=== PATIENT | male | born 1960 | race Caucasian/White ===

== ENCOUNTER → 2018-08-06 14:03 | Outpatient (CLI) | payer OTHER, MEDICAID, SELFPAY ==
--- NOTE | 2018-08-06 | DI.RAD.S_ITS ---
PROCEDURE: XR HIP W PEL IF DONE RT 2V INDICATIONS: RIGHT HIP PAIN TECHNIQUE: AP pelvis with lateral view(s) of the right hip(s). COMPARISON: None. FINDINGS: Bones: No fractures or dislocations. Pelvic ring appears intact. No suspicious bony lesions. Bilateral moderate hip joint degeneration, right slightly greater than left. Lower lumbar facet disease and discogenic changes. A presumed 3 mm bone island projecting in the left femoral head Soft tissues: The visualized bowel gas pattern is normal. No suspicious soft tissue calcifications. IMPRESSION: Bilateral moderate hip joint degeneration, right slightly greater than left. Dictated by: Sae Leach M.D. on 08/06/2018 at 15:22 Approved by: Sae Leach M.D. on 08/06/2018 at 15:24
--- NOTE | 2018-08-06 | DI.RAD.S_ITS ---
PROCEDURE: XR CHEST 2V INDICATIONS: COUGH TECHNIQUE: 2 views of the chest were acquired. COMPARISON: None. FINDINGS: Surgical changes and devices: Partially visualized cervical spine fixation hardware. Lungs and pleura: No pleural effusions or pneumothorax. Lungs are clear. Mediastinum: Mediastinal contours are normal. Heart size is normal. Bones and chest wall: No suspicious bony abnormalities. Chronic left clavicle fracture. Soft tissues appear unremarkable. IMPRESSION: No acute disease. Dictated by: Sae Leach M.D. on 08/06/2018 at 15:24 Approved by: Sae Leach M.D. on 08/06/2018 at 15:25
== END ==
PROVIDERS: PCP Family Medicine; Visit Provider Family Medicine
DX: M16.0 Bilateral primary osteoarthritis of hip (principal); R05 Cough; M25.551 Pain in right hip
CPT/HCPCS: 71046; 73502

== ENCOUNTER → 2018-12-04 09:46 | Outpatient (CLI) | payer OTHER, MEDICAID, SELFPAY ==
--- NOTE | 2018-12-04 | DI.RAD.S_ITS ---
PROCEDURE: XR FEMUR RT MIN 2V INDICATIONS: RIGHT MID THIGH PAIN TECHNIQUE: 2 views of the femur were acquired. COMPARISON: [facility], CR, XR HIP W PEL IF DONE RT 2V, 08/06/2018, 14:15. FINDINGS: Bones: No fractures or dislocations. No suspicious bony lesions. There is moderate superior joint space narrowing seen of the right hip, with associated remodeling changes with subchondral sclerosis and osteophyte formation. Soft tissues: No suspicious soft tissue calcifications or masses. IMPRESSION: Moderate right hip degenerative change. No focal femur abnormalities seen. Dictated by: Deangelo Agosto M.D. on 12/04/2018 at 9:29 Approved by: Deangelo Agosto M.D. on 12/04/2018 at 9:32
== END ==
PROVIDERS: Family Provider Family Medicine; PCP Family Medicine; Visit Provider Family Medicine
DX: M79.651 Pain in right thigh (principal); M16.11 Unilateral primary osteoarthritis, right hip
CPT/HCPCS: 73552

== ENCOUNTER → 2019-01-18 10:10 | Outpatient (CLI) | payer OTHER, MEDICAID, SELFPAY ==
--- NOTE | 2019-01-18 | DI.RAD.S_ITS ---
PROCEDURE: XR ANKLE LT MIN 3V INDICATIONS: LEFT ANKLE PAIN TECHNIQUE: 3 views of the ankle were acquired. COMPARISON: None. FINDINGS: Bones: No fractures or dislocations. Ankle mortise is normally aligned. No suspicious bony lesions. Mild talonavicular joint degeneration. Soft tissues: No tibiotalar joint effusion. Achilles tendon appears normal. IMPRESSION: No fracture or dislocation. Mild talonavicular joint degeneration. Dictated by: Shad Barbosa M.D. on 01/18/2019 at 12:24 Approved by: Shad Barbosa M.D. on 01/18/2019 at 12:28
== END ==
PROVIDERS: Family Provider Family Medicine; PCP Family Medicine; Visit Provider Family Medicine
DX: M25.572 Pain in left ankle and joints of left foot (principal); M19.072 Primary osteoarthritis, left ankle and foot
CPT/HCPCS: 73610

== ENCOUNTER → 2019-07-30 09:25 | Outpatient (CLI) | payer OTHER, MEDICAID, SELFPAY ==
--- NOTE | 2019-07-30 09:31 | DI.RAD.S_ITS ---
PROCEDURE: XR CERVICAL SPINE 4V OR 5V INDICATIONS: Neck pain status post ACDF TECHNIQUE: 5 views of the cervical spine acquired. COMPARISON: None. FINDINGS: Bones: No fractures or dislocations to the C7 level. Chronic left clavicle fracture Straightening of the normal lordotic curvature. C4-C7 ACDF. Hardware appears intact, and there is expected postoperative alignment. Multilevel degenerative endplate sclerosis and spurring. Diffuse facet arthropathy. Minimal narrowing of the remaining cervical disc spaces. On the left, there is diffuse mild bony foraminal stenoses at all levels. On the right, moderate bony narrowing of the C4-C5 foramen and diffuse mild bony foraminal stenosis at the remaining levels Soft tissues: No prevertebral soft tissue swelling. IMPRESSION: Postsurgical and degenerative changes as above. Straightening of the normal lordotic curvature. Dictated by: Sae Leach M.D. on 07/30/2019 at 9:51 Approved by: Sae Leach M.D. on 07/30/2019 at 9:55
== END ==
PROVIDERS: PCP Student in an Organized Health Care Education/Training Program; Visit Provider Physical Medicine & Rehabilitation
DX: M54.2 Cervicalgia (principal); M47.812 Spondylosis without myelopathy or radiculopathy, cervical region; M48.02 Spinal stenosis, cervical region; Z98.1 Arthrodesis status
CPT/HCPCS: 72050

== ENCOUNTER → 2019-09-20 10:13 | Outpatient (CLI) | payer OTHER, MEDICAID, SELFPAY ==
--- NOTE | 2019-09-20 | DI.RAD.S_ITS ---
PROCEDURE: XR HAND RT MIN 3V INDICATIONS: RIGHT HAND PAIN TECHNIQUE: 3 views of the hand(s) acquired. COMPARISON: None. FINDINGS: Bones: No fractures or dislocations. Carpal bones are normally aligned. No suspicious bony lesions. Soft tissues: No suspicious soft tissue calcifications. IMPRESSION: Mild distal phalangeal degenerative osteoarthritic joint space narrowing, no trauma or erosive arthritis. Dictated by: Luis Rogers M.D. on 09/20/2019 at 10:43 Approved by: Luis Rogers M.D. on 09/20/2019 at 10:56
== END ==
PROVIDERS: PCP Student in an Organized Health Care Education/Training Program; Visit Provider Student in an Organized Health Care Education/Training Program
DX: M79.641 Pain in right hand (principal); M19.041 Primary osteoarthritis, right hand
CPT/HCPCS: 73130

== ENCOUNTER → 2019-11-03 13:12 | Outpatient (ROUT) | payer OTHER, MEDICAID, SELFPAY ==
[2019-11-03 13:52] LABS: Influenza A - CEPHEID Flu A NEGATIVE (NEGATIVE); Influenza B - CEPHEID Flu B NEGATIVE (NEGATIVE)
== END ==
PROVIDERS: PCP Student in an Organized Health Care Education/Training Program; Visit Provider Student in an Organized Health Care Education/Training Program
DX: R05 Cough (principal); R50.9 Fever, unspecified
CPT/HCPCS: 87502

== ENCOUNTER → 2020-03-21 09:33 | Outpatient (CLI) | payer OTHER, MEDICAID, SELFPAY ==
--- NOTE | 2020-03-21 | DI.US.S_ITS ---
PROCEDURE: US PERIPH VENOUS LOW EXTREM RT INDICATIONS: PAIN TECHNIQUE: Real-time imaging, as well as color and pulse Doppler interrogation, were performed of the lower extremity deep veins from the inguinal ligament to the popliteal fossa. COMPARISON: None. FINDINGS: The common femoral, femoral and popliteal veins are normally compressible, and free of intraluminal thrombus. Color and pulse Doppler demonstrate normal phasic intraluminal flow. There is normal augmentation response to distal compression maneuver. IMPRESSION: No evidence of deep venous thrombosis. Dictated by: Sae Leach M.D. on 03/21/2020 at 10:40 Approved by: Sae Leach M.D. on 03/21/2020 at 10:41
== END ==
PROVIDERS: PCP Student in an Organized Health Care Education/Training Program; Referring Provider Student in an Organized Health Care Education/Training Program; Visit Provider Student in an Organized Health Care Education/Training Program
DX: M79.604 Pain in right leg (principal)
CPT/HCPCS: 93971

== ENCOUNTER → 2020-04-05 11:27 | Outpatient (CLI) | payer OTHER, MEDICAID, SELFPAY ==
--- NOTE | 2020-04-05 | DI.RAD.S_ITS ---
PROCEDURE: XR HIP W PEL IF DONE RT 2V INDICATIONS: Right hip pain TECHNIQUE: AP pelvis with lateral view(s) of the right hip(s). COMPARISON: [facility], , XR HIP W PEL IF DONE RT 2V, 08/06/2018, 14:15. FINDINGS: Bones: No fractures or dislocations but again noted is moderately severe right hip joint osteoarthritis when compared to the left hip where only a relatively mild degree of degeneration can be seen. The right hip osteoarthritis appears to have progressed from July 2018.. Pelvic ring appears intact. No suspicious bony lesions. Soft tissues: The visualized bowel gas pattern is normal. No suspicious soft tissue calcifications. IMPRESSION: No acute trauma found. Worsening now moderately severe right hip joint osteoarthritis with near kyan-oy-cyet articulation at the upper-outer acetabular border. Dictated by: Luis Rogers M.D. on 04/05/2020 at 12:10 Approved by: Luis Rogers M.D. on 04/05/2020 at 12:11
== END ==
PROVIDERS: PCP Student in an Organized Health Care Education/Training Program; Referring Provider Student in an Organized Health Care Education/Training Program; Visit Provider Student in an Organized Health Care Education/Training Program
DX: M25.551 Pain in right hip (principal); M16.0 Bilateral primary osteoarthritis of hip
CPT/HCPCS: 73502

== ENCOUNTER → 2020-05-01 09:38 | Outpatient (CLI) | payer OTHER, MEDICAID, SELFPAY ==
--- NOTE | 2020-05-01 | DI.US.S_ITS ---
PROCEDURE: US SOFT TISSUE HEAD AND NECK INDICATIONS: LYMPHADENOPATHY TECHNIQUE: Real-time scanning was performed of the neck region of interest, with image documentation. COMPARISON: None. FINDINGS: Scanning over the right neck area of reported swelling and redness for 2 months was performed, without identifiable underlying adenopathy or abnormal fluid collection or solid mass. IMPRESSION: No abnormality found by ultrasound. Contrast-enhanced CT or MR scanning likely is warranted, depending on clinical status, it is unusual symptoms persist. Dictated by: Luis Rogers M.D. on 05/01/2020 at 10:48 Approved by: Luis Rogers M.D. on 05/01/2020 at 10:49
== END ==
PROVIDERS: PCP Student in an Organized Health Care Education/Training Program; Referring Provider Student in an Organized Health Care Education/Training Program; Visit Provider Student in an Organized Health Care Education/Training Program
DX: R59.1 Generalized enlarged lymph nodes (principal)
CPT/HCPCS: 76536

== ENCOUNTER → 2020-05-15 08:20 | Outpatient (CLI) | payer OTHER, MEDICAID, SELFPAY ==
[2020-05-15 09:08] LABS: BUN Creatinine Ratio 12.9 (6-22); Blood Urea Nitrogen 9 mg/dL (9-20); Estimated Glomerular Filt Rate > 60.0 mL/min (>60)
--- NOTE | 2020-05-15 09:42 | DI.CT.S_ITS ---
PROCEDURE: CT ABDOMEN PELVIS W CON INDICATIONS: Right lower quadrant pain TECHNIQUE: After the administration of oral and intravenous contrast, 5 mm thick sections acquired from the diaphragms to the symphysis. 5 mm thick coronal and sagittal reformats were performed. For radiation dose reduction, the following was used: automated exposure control, adjustment of mA and/or kV according to patient size. COMPARISON: [facility], CT, ABDOMEN/PELVIS WITH CONTRAST, 05/17/2016, 10:45. FINDINGS: Image quality: Excellent. ABDOMEN: Lung bases: Minimal bibasilar atelectasis. No pleural effusion. Heart size is normal. Solid organs: Liver is normal in size. Diffuse low-density of the liver suggesting hepatic steatosis. Gallbladder is nondistended. Question of small calcified gallstone. Biliary system is non-dilated. Pancreas enhances normally. The cystic lesion in the head of the pancreas measuring 1.6 x 0.9 cm, (2/35), remotely 1.2 x 0.9 cm on 05/17/2016. No main duct pancreatic ductal dilatation. Spleen is normal in size and enhancement. No adrenal nodules. Kidneys are normal in size and enhancement, without hydronephrosis. Peritoneum and bowel: Stomach, small bowel, and colon loops are normal in caliber and wall thickness. Normal appendix. No free fluid or air. Nodes and vessels: No retroperitoneal or mesenteric adenopathy. Aorta and inferior vena cava are normal in caliber. Duplicated left renal artery. Miscellaneous: No ventral hernias. PELVIS: Genitourinary: Bladder wall thickness is normal. Miscellaneous: Small fat containing right inguinal hernia. No adenopathy. Bones: No suspicious bony lesions. No vertebral body compression fractures. IMPRESSION: 1. No acute inflammatory process identified. No free fluid. Normal appendix. 2. Small fat containing right inguinal hernia. -Consider dedicated ultrasound with Valsalva for further evaluation. 3. Cystic lesion in the head of the pancreas measuring 1.6 cm, slightly increased compared to 2016. This may represent IPMN. -Recommend follow-up multiphase CT pancreas or pancreas MRI in 1 year. 4. Diverticulosis. Dictated by: Oliverio Chaves M.D. on 05/15/2020 at 10:31 Approved by: Oliverio Chaves M.D. on 05/15/2020 at 10:44
== END ==
PROVIDERS: PCP Student in an Organized Health Care Education/Training Program; Referring Provider Student in an Organized Health Care Education/Training Program; Visit Provider Student in an Organized Health Care Education/Training Program
DX: R10.31 Right lower quadrant pain (principal); K86.2 Cyst of pancreas; K40.90 Unilateral inguinal hernia, without obstruction or gangrene, not specified as recurrent; R19.7 Diarrhea, unspecified; R19.5 Other fecal abnormalities; K57.90 Diverticulosis of intestine, part unspecified, without perforation or abscess without bleeding
CPT/HCPCS: 36415; 74177; 82565; 84520; Q9967

== ENCOUNTER → 2020-05-19 08:34 | Outpatient (CLI) | payer OTHER, MEDICAID, SELFPAY ==
--- NOTE | 2020-05-19 | DI.US.S_ITS ---
PROCEDURE: US ABDOMEN LIMITED INDICATIONS: UNILATRAL INGUINAL HERNIA TECHNIQUE: Real-time focused scanning was performed of the inguinal region, with image documentation. COMPARISON: [facility], CT, CT ABDOMEN PELVIS W CON, 05/15/2020, 9:40. FINDINGS: There is a fat containing mobile inguinal hernia at the right groin, which accentuates with Valsalva maneuver. No edema or bowel involvement is seen. IMPRESSION: Right groin region fat containing inguinal canal hernia, containing omentum, but without bowel involvement. Dictated by: Luis Rogers M.D. on 05/19/2020 at 10:58 Approved by: Luis Rogers M.D. on 05/19/2020 at 11:09
== END ==
PROVIDERS: PCP Student in an Organized Health Care Education/Training Program; Referring Provider Student in an Organized Health Care Education/Training Program; Visit Provider Student in an Organized Health Care Education/Training Program
DX: K40.90 Unilateral inguinal hernia, without obstruction or gangrene, not specified as recurrent (principal)
CPT/HCPCS: 76705

== ENCOUNTER → 2020-06-04 15:25 | Outpatient (CLI) | payer OTHER, MEDICAID, SELFPAY ==
[2020-06-05 23:10] LABS: COVID19 Sendout Not Detected (Not Detect)
== END ==
PROVIDERS: PCP Student in an Organized Health Care Education/Training Program; Visit Provider Physician Assistant
DX: Z11.59 Encounter for screening for other viral diseases (principal)
CPT/HCPCS: 87635

== ENCOUNTER 2020-06-07 06:27 | Day surgery (SDC) | payer OTHER, MEDICAID, SELFPAY ==
[2020-06-02 10:07] VITALS: BMI 25.7
[2020-06-07] VITALS (7 sets, daily range): BP systolic 115–136; BP diastolic 51–81; PULSE 68–77; RESP 8–95; TEMP 36.1–36.7; O2SAT 16–97; BMI 25.0
--- NOTE | 2020-06-07 | PATH_ITS ---
[facility] Accession Number: [id number] . 01 Material submitted: . PART A: body - ILEO-INGUINAL NERVE PART B: spermatic cord - RIGHT SPERMATIC CORD LIPOMA . 01 Clinical history: . REPAIR RIH W/MESH . 02 Diagnosis: A. Ileoinguinal Nerve, Right Inguinal Hernia Repair: Peripheral nerve tissue present. . B. Right Spermatic Cord Lipoma, Right Inguinal Hernia Repair: Benign fibroadipose and fibroconnective tissue, consistent with cord lipoma (6.3 x 2.2 x 0.9 cm). MRV 06/09/2020 1021 Local . 02 Electronically signed: . Mary Ann Walsh MD, Pathologist NPI- [id number] . 01 Gross description: . A. Received in formalin, labeled ileoinguinal nerve, is one piece of a cylindrical portion of maldonado tissue measuring 8.9 x 0.5 x 0.3 cm. The tissue is inked and entirely submitted, to be further sectioned at embedding. Two additional cassettes will be provided for embedders. B. Received in formalin, labeled right spermatic cord lipoma, is one piece maldonado adipose tissue measuring 6.3 x 2.2 x 0.9 cm. The tissue is inked, serially sectioned, and submitted in six loss prevention representative sections in cassettes B1 and B2, with three slices per cassette. ([id number]) /FRRich 06/08/2020 0334 Local . 02 Pathologist provided ICD-10: K40.90 . 02 CPT . 533533, [id number] Performed at: [address], [place], [place] [id number] MD Donato Mascorro MD Phone: [phone] Performed at: 02 [facility] [place] [address] [place] [id number] MD Dorothy Peterson MD Phone: [phone]
[2020-06-07] MEDS: LACTATED RINGERS 1,000 ML 100 ML IV ×2 (07:21→08:57)
--- NOTE | 2020-06-07 07:40 | PM.PREOP ---
Pre-operative Note COVID-19 COVID-19 status: Negative Result date/Date tested (Pos, Neg/Pending): 06/04/20 Interval Note History & Physical reviewed/Exam performed by Physician: Yes Changes to H&P: Yes H&P completed within 30 days and has changed as indicated here:: Pt saw Dr. Flynn about his hip and recommendation was to go ahead with inguinal hernia repair and follow with hip injections.
[2020-06-07] MEDS: CEFAZOLIN 2 GM/100 ML FROZ.PIGGY IV (07:58)
--- NOTE | 2020-06-07 08:10 | SUR.OPER ---
Supine on padded OR bed, head on pillow, arms secured on padded arm boards at <90 degrees abduction, legs uncrossed, safety belt at thigh, tape over blanket over lower legs.
[2020-06-07] MEDS: BUPIVACAINE 0.25% W/ EPI 30 ML VIAL INJ ×3 (08:16→08:56)
[2020-06-07] MEDS: BUPIVACAINE LIPOSOME 266 MG/20 ML VIAL INJ (08:33)
--- NOTE | 2020-06-07 09:13 | PM.OP.1 ---
Operative Date/Time/Diagnoses Date of procedure: 06/07/20 Time of procedure: 09:13 Pre-op diagnosis: right inguinal hernia Post-op diagnosis: other (indirect and direct right inguinal hernia with spermatic cord lipoma, and chronically scarred and tethered ilioinguinal nerve) Procedure & Clinicians Procedure: Open repair of right inguinal hernia; resection of right spermatic cord lipoma and right ilioinguinal nerve Same procedure as scheduled: Yes Indications: 59 yo man with right inguinal hernia and right groin and perineal pain Surgeon: Faith Velez Click Yes if Unassisted: Yes Anesthesia Type: General Operative Notes Findings: Right indirect hernia and direct hernia with spermatic cord lipoma and scarred and tethered ilioinguinal nerve Specimen(s): other (ilioinguinal nerve, and spermatic cord lipoma) Prosthetic devices, grafts, tissues, transplants, or devices: BARD macroporous flat inguinal mesh Estimated Blood Loss (mL): 1 Procedure in detail: The patient was brought into the OR, placed supine on the OR table, and appropriate preoperative antibiotics were given. Sequential compression devices were placed on both legs and turned on. General anesthesia was induced and the patient was intubated with an LMA by the anesthesiologist. The right lower abdomen and groin were prepped and draped in sterile fashion for inguinal incision. A surgical time out was conducted. Local anesthetic was infiltrated into the skin and a 15 blade was used to make an oblique 10cm incision two finger breadths superior to the inguinal ligament. Dissection was carried down to through the subcutaneous fat and carlos's fascia. Dissection was carried down to the aponeurosis of the external oblique. Using a fresh 15 blade, I opened the aponeurosis after giving generous local anesthetic. There was a moderate indirect inguinal hernia, a very scarred and attenuated ilioinguinal nerve, and a weak inguinal canal floor with bulging direct hernia. I divided the damaged nerve as far proximal as I could using Metzenbaum scissors, and tucked the proximal end into muscle. I then gave local anesthetic in the inguinal canal floor, pubic tubercle, and conjoint tendon, using a total of 60mL of 0.25% Marcaine with Epi. I also infiltrated the area superior to Poupart's ligament with 20mL Exparel in small aliquots. A moderate sized spermatic cord lipoma was coming through the indirect defect and adherent to the spermatic cord. I dissected this free from the cord and suture ligated it, passing it off the field. The stump of the spermatic cord lipoma was dropped back into the abdomen through the indirect defect. A BARD macroporous inguinal hernia mesh was then brought into the field and shaped to fit the groin. I secured it to the ligaments overlying the pubic tubercle with 2cm overlap, and then secured it to the inguinal ligament inferiorly and the conjoint tendon superiorly with 2-0 PDS suture. I made an opening in the mesh to accommodate the spermatic cord, ensuring it was appropriately sized to avoid strangulation of the cord. Once the mesh was secure, I closed the external oblique aponeurosis with 3-0 Vicryl. I closed the Carlos's fascia with 3-0 Vicryl. The remaining local anesthetic was given in the skin and soft tissue. The skin was closed with running 4-0 Monocryl subcuticular stitch. The skin edges were sealed with Dermabond. The patient was awakened from anesthesia and extubated. He tolerated the procedure well. Needle, sponge and instrument counts were correct x 2. The patient was transferred to PACU in stable condition. Complications: none Post-operative Condition: stable Disposition: PACU
== END 2020-06-07 10:00 | disposition home or self-care (01) ==
PROVIDERS: PCP Student in an Organized Health Care Education/Training Program; Referring Provider Surgery; Visit Provider Surgery
PROC: (CPT 49505; principal; 2020-06-07 07:45)
DX: K40.90 Unilateral inguinal hernia, without obstruction or gangrene, not specified as recurrent (principal); D17.6 Benign lipomatous neoplasm of spermatic cord
CPT/HCPCS: 49505; C1781; C9290; J0690; J1100; J2250; J2405; J2704; J3010

== ENCOUNTER → 2020-08-28 09:26 | Outpatient (CLI) | payer OTHER, MEDICAID, SELFPAY ==
[2020-08-28 09:47] LABS: WBC Urine None Seen (0-5/HPF)
[2020-08-28 10:25] LABS: Add Manual Diff / Slide Review NO; Basophils Absolute Auto 0 /uL (0-100); Basophils Percent Auto 0.6 % (0-2); Eosinophils Absolute Auto 300 /uL (0-450); Eosinophils Percent Auto 3.9 % (2-4); Hematocrit 42.6 % (41-53); Hemoglobin 14.6 g/dL (13.5-17.5); Lymphocytes Absolute Auto 2000 /uL (1100-4500); Lymphocytes Percent Auto 30.2 % (25-40); Mean Corpuscular HGB Conc 34.3 % (30-36); Mean Corpuscular Hemoglobin 31.1 PG (26-34); Mean Corpuscular Volume 90.8 fL (80-100); Monocytes Absolute Auto 700 /uL (0-900); Monocytes Percent Auto 11.4 % (3-14); Neutrophils Absolute Auto 3500 /uL (1500-7000); Neutrophils Percent Auto 53.9 % (50-75); Platelet Count 248 X10^3/uL (150-400); Red Blood Cell Count 4.69 X10^6/uL (4.5-5.9); Red Cell Distribution Width 12.9 % (11.6-14.8); White Blood Cell Count 6.6 X10^3/uL (4.5-11.0)
[2020-08-28 11:11] LABS: Appearance Urine UA CLEAR; Bilirubin Urine UA NEGATIVE (NEGATIVE); Color Urine UA YELLOW; Glucose Urine UA NEGATIVE (Negative); Ketones Urine UA NEGATIVE (NEGATIVE); Leukocyte Esterase Urine UA NEGATIVE (NEGATIVE); Nitrite Urine UA NEGATIVE (Negative); Occult Blood Urine UA TRACE-INTACT (Negative); Protein Urine UA NEGATIVE (Negative); Urobilinogen Urine UA 0.2 E.U./dL (0.2); pH Urine UA 6.5 (4.5-8.0)
[2020-08-28 11:38] LABS: BUN Creatinine Ratio 14.9 (6-22); Blood Urea Nitrogen 10 mg/dL (9-20); Calcium 9.2 mg/dL (8.4-10.2); Carbon Dioxide 26 mmol/L (22-32); Chloride 95 mmol/L (98-107); Estimated Glomerular Filt Rate > 60.0 mL/min (>60); Glucose 147 mg/dL (80-110); HEMOLYSIS < 15 (0-50); Potassium 4.2 mmol/L (3.4-5.1); Sodium 128 mmol/L (137-145)
[2020-08-28 11:43] LABS: Hemoglobin A1C% w Est Avg Glu 6.2 % (4.0-6.0)
[2020-08-28 11:49] LABS: Bacteria Urine Occasional (0-1); Culture Indicated Urine Cult Not Indicated; RBC Urine 0-1/HPF (0-5/HPF)
== END ==
PROVIDERS: PCP Student in an Organized Health Care Education/Training Program; Referring Provider Orthopaedic Surgery; Visit Provider Orthopaedic Surgery
DX: Z01.818 Encounter for other preprocedural examination (principal); Z01.812 Encounter for preprocedural laboratory examination; R73.9 Hyperglycemia, unspecified; N39.0 Urinary tract infection, site not specified
CPT/HCPCS: 36415; 80048; 81001; 83036; 85025; 93005

== ENCOUNTER → 2020-10-30 10:25 | Outpatient (CLI) | payer OTHER, MEDICAID, SELFPAY ==
[2020-10-30 11:59] LABS: Alanine Aminotransferase 20 IU/L (<50); Albumin 4.1 g/dL (3.5-5.0); Albumin Globulin Ratio 1.4 (1.0-2.8); Alkaline Phosphatase 73 U/L (38-126); Aspartate Aminotransferase 23 IU/L (17-59); BUN Creatinine Ratio 12.2 (6-22); Bilirubin Total 0.4 mg/dL (0.2-1.3); Blood Urea Nitrogen 9 mg/dL (9-20); Carbon Dioxide 28 mmol/L (22-32); Chloride 95 mmol/L (98-107); Estimated Glomerular Filt Rate > 60.0 mL/min (>60); Globulin 2.9 g/dL (1.7-4.1); Glucose 106 mg/dL (80-110); HEMOLYSIS < 15 (0-50); Potassium 4.6 mmol/L (3.4-5.1); Sodium 126 mmol/L (137-145)
== END ==
PROVIDERS: PCP Student in an Organized Health Care Education/Training Program; Referring Provider Internal Medicine Cardiovascular Disease; Visit Provider Internal Medicine Cardiovascular Disease
DX: I42.9 Cardiomyopathy, unspecified (principal)
CPT/HCPCS: 36415; 80053

== ENCOUNTER → 2020-11-02 09:33 | Outpatient (CLI) | payer OTHER, MEDICAID, SELFPAY ==
--- NOTE | 2020-11-02 | DI.MRI.S_ITS ---
PROCEDURE: MR ORBITS FACE NECK WO/W CON INDICATIONS: Localized swelling, mass and lump, unspecified TECHNIQUE: Sagittal/axial/coronal T1 spin echo and STIR. After the administration of contrast, axial/coronal/sagittal T1 fast spin echo with fat saturation through the neck. COMPARISON: Outside Facility, , MRI C-SPINE W/WO CONTRAST, 03/17/2018, 7:53. [facility], MR, C-SPINE WITHOUT CONTRAST, 05/12/2014, 8:26. FINDINGS: Image quality: Diagnostic, with note made of motion artifact. Lymph nodes: No enlarged nodes are seen throughout the neck. Vessels: Visualized vasculature appears normal, with normal flow voids and enhancement. Neck spaces: The oropharynx, nasopharynx and pharynx are unremarkable, without mucosal lesions seen. Vocal cords, false vocal cords, pyriform sinuses, epiglottis, vallecula, and tongue base all appear normal. Extramucosal spaces of the neck also appear unremarkable. Glands: The area of clinical concern is marked within the right submandibular region. Immediately deep to the marker, there is a normal appearing right submandibular gland, with a small inferior projection off of the gland itself. This inferior projection does not appear masslike and demonstrates signal characteristics and enhancement characteristics identical to the remainder of the right submandibular gland. The left submandibular gland is unremarkable. The parotid glands appear normal. Thyroid gland demonstrates no significant MRI abnormality. Miscellaneous: Visualized brain and orbits appear normal. Lung apices appear clear. Superficial soft tissues appear normal. Visualized sinuses and mastoids appear clear. Bones: Marrow has normal overall signal. Lower cervical spine fixation hardware is seen. IMPRESSION: The focus of clinical concern corresponds to an inferior projection off of the right submandibular gland, which is not considered to be pathologic. No keith masses are seen. No enlarged lymph nodes are seen. Lower cervical spine fixation hardware noted. Dictated by: Deangelo Agosto M.D. on 11/02/2020 at 10:14 Approved by: Deangelo Agosto M.D. on 11/02/2020 at 10:18
== END ==
PROVIDERS: PCP Student in an Organized Health Care Education/Training Program; Referring Provider Nurse Practitioner Family; Visit Provider Nurse Practitioner Family
DX: R22.1 Localized swelling, mass and lump, neck (principal)
CPT/HCPCS: 70543

== ENCOUNTER → 2020-11-21 07:56 | Outpatient (CLI) | payer OTHER, MEDICAID, SELFPAY ==
[2020-11-21] MEDS: COVID-19 VACC #1, MRNA(MOD) 100 MCG/0.5 ML VIAL IM (08:03)
== END ==
PROVIDERS: PCP Student in an Organized Health Care Education/Training Program; Visit Provider Internal Medicine
DX: Z23 Encounter for immunization (principal)
CPT/HCPCS: 0011A; 91301

== ENCOUNTER → 2020-12-05 09:04 | Outpatient (CLI) | payer OTHER, MEDICAID, SELFPAY ==
[2020-12-05 10:38] LABS: BUN Creatinine Ratio 18.8 (6-22); Blood Urea Nitrogen 15 mg/dL (9-20); Calcium 9.5 mg/dL (8.4-10.2); Carbon Dioxide 29 mmol/L (22-32); Chloride 98 mmol/L (98-107); Cholesterol 188 mg/dL (140-199); Estimated Glomerular Filt Rate > 60.0 mL/min (>60); Glucose 102 mg/dL (80-110); HDL Cholesterol 50 mg/dL (40-60); HEMOLYSIS < 15 (0-50); LDL Cholesterol Calculated 121 mg/dL (<100); Potassium 4.7 mmol/L (3.4-5.1); Sodium 132 mmol/L (137-145); Triglycerides 84 mg/dL (35-150); Uric Acid 6.8 mg/dL (3.5-8.5)
[2020-12-05 10:39] LABS: Appearance Urine UA CLEAR; Bilirubin Urine UA NEGATIVE (NEGATIVE); Color Urine UA YELLOW; Glucose Urine UA NEGATIVE (Negative); Ketones Urine UA TRACE (NEGATIVE); Leukocyte Esterase Urine UA NEGATIVE (NEGATIVE); Nitrite Urine UA NEGATIVE (Negative); Occult Blood Urine UA NEGATIVE (Negative); Protein Urine UA TRACE (Negative); Specific Gravity Urine UA 1.015 (1.000-1.035); Urobilinogen Urine UA 0.2 E.U./dL (0.2); pH Urine UA 6.5 (4.5-8.0)
[2020-12-05 10:45] LABS: NT-proBNP (BNP-Adult 18+) 173 pg/mL (<125)
[2020-12-05 11:07] LABS: Thyroid Stimulating Hormone 0.627 uIU/mL (0.47-4.68)
[2020-12-05 11:08] LABS: Creatinine Urine Random 273.2 mg/dL; Sodium Urine Random 22 mmol/L (30-90)
[2020-12-05 11:11] LABS: Microalbumi Creatinin Ratio Ur 2.5 ug/mg CR (<30); Microalbumin Urine Random 0.7 mg/dL (0-1.6)
[2020-12-05 11:12] LABS: Bacteria Urine Moderate (10-30); Culture Indicated Urine Cult Not Indicated; Mucus Urine 3+ (Negative); RBC Urine 0-1/HPF (0-5/HPF); WBC Urine 0-1/HPF (0-5/HPF)
[2020-12-06 16:34] LABS: Osmolality Urine 810 mOsmol/kg (.); Osmolality, Serum 280 mOsmol/kg (275-295)
== END ==
PROVIDERS: PCP Student in an Organized Health Care Education/Training Program; Referring Provider Internal Medicine Cardiovascular Disease; Visit Provider Internal Medicine
DX: E87.1 Hypo-osmolality and hyponatremia (principal); I25.111 Atherosclerotic heart disease of native coronary artery with angina pectoris with documented spasm
CPT/HCPCS: 36415; 80048; 80061; 81001; 82043; 82570; 83880; 83930; 83935; 84300; 84439; 84443; 84550

== ENCOUNTER → 2020-12-19 08:02 | Outpatient (CLI) | payer OTHER, MEDICAID, SELFPAY ==
[2020-12-19] MEDS: COVID-19 VACC #2, MRNA(MOD) 100 MCG/0.5 ML VIAL IM (08:25)
== END ==
PROVIDERS: PCP Student in an Organized Health Care Education/Training Program; Visit Provider Internal Medicine
DX: Z23 Encounter for immunization (principal)
CPT/HCPCS: 0012A; 91301

== ENCOUNTER → 2021-01-20 11:15 | Outpatient (CLI) | payer OTHER, MEDICAID, SELFPAY ==
[2021-01-20 13:21] LABS: COVID19 -Nasal RAPID Negative (Negative)
== END ==
PROVIDERS: PCP Student in an Organized Health Care Education/Training Program; Visit Provider Physician Assistant
DX: Z20.822 Contact with and (suspected) exposure to COVID-19 (principal)
CPT/HCPCS: 87635

== ENCOUNTER → 2021-01-22 10:02 | Outpatient (CLI) | payer OTHER, MEDICAID, SELFPAY ==
--- NOTE | 2021-01-22 17:24 | DI.NM.S_ITS ---
DATE OF SERVICE: 01/22/2021 PROCEDURE PERFORMED: Exercise converted to pharmacologic myocardial vasodilator stress and rest myocardial perfusion imaging with gating to assess ejection fraction and regional wall motion. ORDERING PROVIDER: Dr. Will Echeverria. INDICATIONS: The patient is a 59-year-old male with a history of coronary vasospasm and left ventricular dysfunction with atypical arm pain and lightheadedness. 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 With this, he had a normal heart rate and blood pressure response to exercise and was walked at a low pace on the treadmill. He had no chest discomfort or other anginal symptoms. His resting ECG shows sinus rhythm with a normal QRS and subtle, nonspecific ST-segment abnormalities. With exercise, he develops a LBBB at a rate of 123 BPM with associated repolarization abnormalities. This persists throughout stress until his heart rate drops back to the 110 BPM range, during which time he has intermittent LBBB and then this essentially completely resolves by a heart rate of 100 BPM, although with some mild residual T-wave inversions in the lateral leads that are nonspecific. He had occasional isolated PVCs rarely in couplets, but no other complex ectopy. Per protocol, he was injected with 25.6 millicuries of technetium-99m Myoview and was imaged 20 minutes later using a gated SPECT acquisition protocol. Earlier in the day while at rest, he had been injected with 12.8 millicuries of technetium-99m Myoview and was imaged 30 minutes later, again using a quantitated gated SPECT acquisition protocol. FINDINGS: 1. Raw data: There is fairly good myocardial tracer uptake. Left ventricular volumes appear to be moderately increased. Lung/heart ratio was normal at 0.39 with a normal TID ratio of 1.03. 2. Quantitated gated SPECT: Post-stress ejection fraction shows moderately reduced systolic function with an EF of 35% percent in a global fashion without any obvious focal wall motion abnormality and specifically the inferior wall appears to have preserved contractility. The resting ejection fraction is estimated at 37% with an end-diastolic volume of 171 mL. 3. Myocardial perfusion imaging: Post-stress supine images shows a moderate perfusion defect throughout the entire inferior wall, extending into the proximal inferior septum at the base. However, this defect completely resolves on the prone images, revealing a normal, homogeneous perfusion pattern. The resting images show an identical perfusion pattern to that of the post-stress supine images. IMPRESSION: 1. Probable normal myocardial perfusion study for ischemia. 2. Moderate fixed inferior perfusion defect that completely resolves on prone imaging, suggesting that this reflects diaphragmatic attenuation artifact. While previous nontransmural infarction cannot be entirely excluded, it is unlikely given the absence of any regional wall motion abnormality in this area. 3. Moderately reduced left ventricular systolic function without focal abnormality and moderate left ventricular enlargement. 4. No angina with limited exercise and pharmacologic vasodilator stress. He developed a rate-related LBBB around 120 BPM that precludes peak stress ST- segment analysis, but recovery ECGs show some mild T-wave inversions in the inferolateral leads that is nonspecific. He had occasional PVCs, rarely in couplets, but no other arrhythmias. Lloyd Caden - HAYDEN/laury/zarina doc#: [id number]/job#: [id number] dd: 01/22/2021 16:37:00 dt: 01/22/2021 16:59:00 DICTATING MD/COPIES TO: Krishna Wilson MD; Will Echeverria MD COPIES MNE: LUKAS;
== END ==
PROVIDERS: PCP Student in an Organized Health Care Education/Training Program; Referring Provider Internal Medicine Cardiovascular Disease; Visit Provider Internal Medicine Cardiovascular Disease
DX: I25.111 Atherosclerotic heart disease of native coronary artery with angina pectoris with documented spasm (principal); R42 Dizziness and giddiness; M79.603 Pain in arm, unspecified
CPT/HCPCS: 78452; 93017; A9502; J2785

== ENCOUNTER → 2021-02-02 10:19 | Outpatient (CLI) | payer OTHER, MEDICAID, SELFPAY ==
[2021-02-02 11:21] LABS: BUN Creatinine Ratio 11.4 (6-22); Blood Urea Nitrogen 9 mg/dL (9-20); Calcium 9.8 mg/dL (8.4-10.2); Carbon Dioxide 27 mmol/L (22-32); Chloride 100 mmol/L (98-107); Cholesterol 166 mg/dL (140-199); Estimated Glomerular Filt Rate > 60.0 mL/min (>60); Glucose 102 mg/dL (80-110); HDL Cholesterol 49 mg/dL (40-60); HEMOLYSIS < 15 (0-50); LDL Cholesterol Calculated 104 mg/dL (<100); Potassium 4.9 mmol/L (3.4-5.1); Sodium 133 mmol/L (137-145); Triglycerides 67 mg/dL (35-150)
== END ==
PROVIDERS: PCP Student in an Organized Health Care Education/Training Program; Referring Provider Internal Medicine Cardiovascular Disease; Visit Provider Internal Medicine Cardiovascular Disease
DX: I25.111 Atherosclerotic heart disease of native coronary artery with angina pectoris with documented spasm (principal); E78.2 Mixed hyperlipidemia
CPT/HCPCS: 36415; 80048; 80061

== ENCOUNTER → 2021-03-09 13:33 | Outpatient (CLI) | payer OTHER, MEDICAID, SELFPAY ==
[2021-03-09 14:22] LABS: Appearance Urine UA CLEAR; Bilirubin Urine UA NEGATIVE (NEGATIVE); Color Urine UA YELLOW; Glucose Urine UA NEGATIVE (Negative); Ketones Urine UA NEGATIVE (NEGATIVE); Leukocyte Esterase Urine UA NEGATIVE (NEGATIVE); Nitrite Urine UA NEGATIVE (Negative); Occult Blood Urine UA NEGATIVE (Negative); Protein Urine UA NEGATIVE (Negative); Specific Gravity Urine UA 1.025 (1.000-1.035); Urobilinogen Urine UA 0.2 E.U./dL (0.2)
[2021-03-09 14:40] LABS: RBC Urine 1-5/HPF (0-5/HPF); WBC Urine 0-1/HPF (0-5/HPF)
[2021-03-09 14:41] LABS: Bacteria Urine Few (2-10); Culture Indicated Urine Cult Not Indicated
[2021-03-09 14:54] LABS: Add Manual Diff / Slide Review NO; BUN Creatinine Ratio 13.8 (6-22); Basophils Absolute Auto 0 /uL (0-100); Basophils Percent Auto 0.3 % (0-2); Blood Urea Nitrogen 9 mg/dL (9-20); Calcium 9.4 mg/dL (8.4-10.2); Carbon Dioxide 23 mmol/L (22-32); Chloride 93 mmol/L (98-107); Eosinophils Absolute Auto 400 /uL (0-450); Eosinophils Percent Auto 4.8 % (2-4); Estimated Glomerular Filt Rate > 60.0 mL/min (>60); Glucose 96 mg/dL (80-110); HEMOLYSIS < 15 (0-50); Hematocrit 40.6 % (41-53); Hemoglobin 13.8 g/dL (13.5-17.5); Lymphocytes Absolute Auto 2600 /uL (1100-4500); Mean Corpuscular Hemoglobin 30.9 PG (26-34); Monocytes Absolute Auto 900 /uL (0-900); Monocytes Percent Auto 11.2 % (3-14); Neutrophils Absolute Auto 4000 /uL (1500-7000); Neutrophils Percent Auto 50.7 % (50-75); Platelet Count 238 X10^3/uL (150-400); Potassium 4.7 mmol/L (3.4-5.1); Red Blood Cell Count 4.46 X10^6/uL (4.5-5.9); Red Cell Distribution Width 12.6 % (11.6-14.8); Sodium 124 mmol/L (137-145); White Blood Cell Count 7.8 X10^3/uL (4.5-11.0)
[2021-03-09 15:05] LABS: Hemoglobin A1C% w Est Avg Glu 5.9 % (4.0-6.0)
== END ==
PROVIDERS: PCP Student in an Organized Health Care Education/Training Program; Referring Provider Orthopaedic Surgery; Visit Provider Orthopaedic Surgery
DX: N39.0 Urinary tract infection, site not specified (principal); Z01.812 Encounter for preprocedural laboratory examination; R73.9 Hyperglycemia, unspecified
CPT/HCPCS: 36415; 80048; 81001; 83036; 85025

== ENCOUNTER → 2021-03-21 11:48 | Outpatient (CLI) | payer OTHER, MEDICAID, SELFPAY ==
[2021-03-21 13:31] LABS: COVID19 -Nasal RAPID Negative (Negative)
== END ==
PROVIDERS: PCP Student in an Organized Health Care Education/Training Program; Visit Provider Family Medicine
DX: Z01.812 Encounter for preprocedural laboratory examination (principal); Z20.822 Contact with and (suspected) exposure to COVID-19
CPT/HCPCS: 87635; C9803

== ENCOUNTER 2021-03-22 06:23 | Day surgery (SDC) | payer OTHER, MEDICAID, SELFPAY ==
[2021-03-12 12:51] VITALS: BMI 26.4
[2021-03-22] VITALS (12 sets, daily range): BP systolic 97–138; BP diastolic 50–76; PULSE 71–94; RESP 12–18; TEMP 36.1–37.2; O2SAT 93–100; BMI 27.1
--- NOTE | 2021-03-22 | DI.RAD.S_ITS ---
PROCEDURE: XR PELVIS 1-2V INDICATIONS: INTER-OP TECHNIQUE: Intra-operative view of the pelvis and hip acquired. COMPARISON: None. FINDINGS: Bones: Intraoperative devices prior to placement of arthroplasty prostheses are in expected positions. No fractures or suspicious bony lesions. Soft tissues: Overlying surgical retractors are present, along with other intraoperative changes. IMPRESSION: Intraoperative imaging obtained during right hip arthroplasty. Dictated by: Oma Shea M.D. on 03/22/2021 at 13:29 Approved by: Oma Shea M.D. on 03/22/2021 at 13:29
--- NOTE | 2021-03-22 06:43 | DI.RAD.S_ITS ---
PROCEDURE: XR HIP W PEL IF DONE RT 2V INDICATIONS: right Total hip arthroplasty TECHNIQUE: AP pelvis and lateral view of the right hip acquired. COMPARISON: , [facility], XR HIP W PEL IF DONE RT 2V, 04/05/2020, 11:23. FINDINGS: Bones: Patient is status post right hip arthroplasty, with hardware components in expected positions. The hip joint appears congruent. The visualized bony structures appear intact. Mild left hip joint degeneration. Soft tissues: Overlying postoperative changes are noted. No suspicious soft tissue densities. IMPRESSION: Expected postoperative appearance Dictated by: Sae Leach M.D. on 03/22/2021 at 12:42 Approved by: Sae Leach M.D. on 03/22/2021 at 12:43
[2021-03-22] MEDS: ACETAMINOPHEN 325 MG TABLET 975 MG PO (07:20)
[2021-03-22] MEDS: VANCOMYCIN 1,000 MG/200 ML PIGGYBACK 200 MG IV (07:20)
[2021-03-22] MEDS: PREGABALIN 75 MG CAPSULE PO (07:21)
[2021-03-22] MEDS: LACTATED RINGERS 1,000 ML 42 ML IV ×2 (07:31→09:35)
--- NOTE | 2021-03-22 07:32 | PM.PREOP ---
Pre-operative Note COVID-19 COVID-19 status: Negative Interval Note History & Physical reviewed/Exam performed by Physician: Yes Changes to H&P: No
[2021-03-22] MEDS: CEFAZOLIN 1 GM VIAL 2 GM IV ×2 (08:10→16:56)
[2021-03-22] MEDS: TRANEXAMIC ACID 1,000 MG VIAL 2000 MG INJ ×2 (08:15→11:25)
--- NOTE | 2021-03-22 08:44 | SUR.OPER ---
Supine on padded [place] table with bilateral legs secured in padded positioning boots and suspended in positioning spars, operative leg in traction per surgeon. Head on one pillow. Arm on non-operative side secured on padded armboard <90 degrees abduction. Arm on operative side padded and resting across chest then secured with tape over sheet. Padded perineal post in place per surgeon.
[2021-03-22] MEDS: BUPIVACAINE 0.5% W/ EPI (PF) 30 ML VIAL INJ (08:49)
[2021-03-22] MEDS: SODIUM CHLORIDE IRRIG SOLUTION 250 ML, POVIDONE-IODINE SPONGE STICKS 1 APPLIC IRR (08:51)
[2021-03-22] MEDS: BUPIVACAINE LIPOSOME 266 MG/20 ML VIAL INJ (08:51)
--- NOTE | 2021-03-22 11:56 | P.OP_ITS ---
Operative Date/Time/Diagnoses Date of procedure: 03/22/21 Time of procedure: 12:41 Pre-op diagnosis: Right hip OA Post-op diagnosis: same Procedure & Clinicians Procedure: Right total hip arthroplasty anterior approach Same procedure as scheduled: Yes Indications: The patient has had progressively worsening right hip pain with radiographic changes consistent with arthritis. Non-operative management has failed and the patient has requested total hip replacement. The risks, benefits and alternatives to surgery were discussed with the patient prior to proceeding. Risks discussed included, but were not limited to, failure to relieve pain, leg length discrepancy, dislocation, stiffness, infection, nerve damage, deep venous thrombosis, pulmonary embolism, stroke, coma, heart attack, permanent paralysis and , as well as the potential need for eventual revision of the prosthetic. Surgeon: Pebbles Flynn Reel Film Inspector: Darron Manning Click Yes if Unassisted: Yes Anesthesia Type: General and Spinal Operative Notes Findings: Severe right hip osteoarthritis, good stability, surprisingly soft bone in the acetabulum Closure Type: primary Specimen(s): none sent Prosthetic devices, grafts, tissues, transplants, or devices: Flynn [employer] Nephew 58 mm R3 cup, size 11 high offset anthology, 36 mm +0 head, one 6.5 mm screw Estimated Blood Loss (mL): 250 Blood products transfused: none Procedure in detail: The patient was brought to the operating room. Patient was carefully positioned in the supine position. Time-out was performed and antibiotics were given. Anesthesia was induced. She was positioned in the on the table in order to allow hyperextension of the hip. The right lower extremity was prepped and draped in a standard sterile fashion. An anterior right hip incision was made 1 fingerbreadth lateral to the anterior superior iliac spine and extended distally towards the greater trochanter. Dissection was carried out through skin and subcutaneous tissues. The skin and subcutaneous tissues were carefully injected with Lidocaine with epi. Superficial hemostasis was achieved. The fascia over the tensor fascia annabelle was defined and incised with a knife. Two Allis clamps were used to grasp the fascia. Tensor fascia annabelle was retracted laterally. A gelpi retractor was placed. Dissection was carried out down along the neck. The hip abductors were pretty densely adherent to the neck. The circumflex vessels were carefully identified and cauterized with the Aqua Mantis. There was good visualization of the femoral neck. A Cobra was placed superior to the neck and the gluteus fibers were carefully stripped from that superior aspect of the capsule. A 2nd retractor was placed along the inferior aspect of the neck. The rectus insertion along the capsule was partially released. A 3rd retractor that was then gently placed over the rim of the acetabulum under the rectus. Capsule was carefully incised and released from the intertrochanteric line circumferentially superior to the mid sagittal line and inferiorly to the mid sagittal line until the lesser trochanter was palpable. A tag stitch was placed both in the superior and inferior limb of the capsular insertion. Along the acetabulum capsule was also released up to the mid sagittal 12:00 position. A portion of the labrum was resected. A saw was used to perform an osteotomy at the level of the intertrochanteric line and the junction of the superior femoral neck leaving approximately 1 finger breath of residual inferior neck above the lesser trochanter. A 2nd cut was made along the femoral neck at the base of the head and a napkin ring of neck was removed. Corkscrew was placed in the femoral head and the head was removed without difficulty. Retractors were then repositioned around the ac etabulum. Residual labrum was resected and additional osteophytes were removed. A reamer that was 4 mm below the templated size was placed by hand in the acetabulum and it was reamed to centralize the acetabulum. It was then reamed up to 2 under the templated size and fluoroscopy was brought in to confirm the position of the reaming and depth of reaming. I reamed 1 under the anticipated size. A trial cup was placed and noted that it was appropriately sized and fluoroscopy confirmed position and depth. The component was open and inserted without difficulty fluoroscopic imaging was used to confirm that the cup had been adequately seated and was well positioned. It was further stabilized with a single screw. Neutral poly liner was placed. The cup was tested and noted to be stable. Attention was then directed to the femur. The femur was gently hyperextended additional capsular release was performed as needed in order to allow adequate visualization of the proximal femur with elevation of the femur. Patient was placed in a hyperextended slightly adducted position with maximum external rotation. Box osteotome was used to check for any residual neck as well as sclerotic bone along the trochanter. Pachuta pepper was placed in the femur. Additional broaching was performed. Canal finder was used to determine the alignment of the canal and position. Size 1 broach was placed. The canal was then appropriately broached up to the templated size as long as there was adequate stability of the broach and serial advancement of the broach without excessive impingement. Specific attention was directed at avoiding varus attempting to direct the distal aspect of the broach more anteriorly and avoiding excessive anteversion. Trial reduction showed acceptable range of motion, good stability, no posterior impingement, synagogue of leg length and appropriate lateral shuck. I did trials with both the standard offset in the extended offset. The standard offset with a +0 head was she too short and too lax. With the extended offset +0 there was good stability. I also hyperflexed the hip and checked that there was no impingement anteriorly and there was good stability with flexion, adduction and internal rotation. Marcaine and Exparel were injected.. The stem was placed without difficulty. Repeat trial reduction and x-ray showed acceptable overall position, length, and no evidence of the femoral fracture. Final head was placed. Wound was meticulously irrigated with normal saline. The hip was reduced and additional Exparel and Marcaine were injected. The capsule was closed with interrupted nonabsorbable sutures. The fascia of the tensor was closed with interrupted and running Vicryl. No drain was placed. Any tensor fascia annabelle muscle that appeared to be contused or injured which was a minimal amount was carefully resected. Capsule around the tensor was injected with Exparel and Marcaine. The skin was closed with barbed stitches for the subcutaneous tissue and skin. We also used surgical glue. The wound was dressed sterilely. Brief Betadine soak was also used and was meticulously irrigated with normal saline. Patient was transferred to recovery room in satisfactory condition. Complications: none Post-operative Condition: stable Disposition: Acute Care Plan for aftercare: The patient will be maintained on a standard total hip replacement protocol with weight bearing as tolerated and anterior hip precautions. The patient will receive Aspirin and sequential compression devices for DVT prophylaxis. The patient will be discharged home when safe for the home environment.
[2021-03-22] MEDS: OXYCODONE/ACETAMINOPHEN 5/325 TABLET 1 TAB PO (12:26)
[2021-03-22] MEDS: fentaNYL 100 MCG/2 ML INJ IV (12:29)
[2021-03-22] MEDS: LACTATED RINGERS 1,000 ML 125 ML IV ×2 (13:56→21:57)
[2021-03-22] MEDS: ACETAMINOPHEN 325 MG TABLET 650 MG PO ×2 (14:10→20:33)
--- NOTE | 2021-03-22 17:22 | PT.IIE ---
Current Diagnoses Unilateral primary osteoarthritis, right hip (03/22/21) Surgery Performed Operation Date: 03/22/21 07:45 Actual Procedures p Total Hip Arthroplasty/Anterior Approach(Right) - Pebbles Flynn MD Surgical History (Last Updated 09/07/20 @ 09:19 by Kenzie Gaston, RN) History of back surgery History of fusion of cervical spine Hx of right inguinal hernia repair (06/07/20) Medical History (Last Updated 09/07/20 @ 09:08 by Kenzie Gaston RN) CAD (coronary artery disease) Cardiomyopathy DDD (degenerative disc disease) Diverticulosis Gout Hearing impaired HLD (hyperlipidemia) HTN (hypertension) Lumbar radiculopathy Myocardial infarction (~2008) Pre-diabetes Prinzmetal angina Spinal stenosis Physical Therapy Inpatient Evaluation/Re-Eval M1 PT/OT-IP Prior Functional Status Start: 03/22/21 16:23 Freq: NEEDED Status: Active Protocol: Document 03/22/21 17:22 AW (Rec: 03/22/21 17:53 AW [id number]) Medical Review Prior Functional Status Communication Pt is an effective verbal communicator. Mobility and Gait Pt reports independent mobility without AD. Activities of Daily Living and IADL's Difficulty with shoes, socks, and pants on the right side but independent. Social History Household Members spouse Living Arrangements House Number of Floors (Floors) One Floor Number of Stairs To Enter/Railing? 1 AJIT at front door without rail. 3 AJIT at back entrance without rail. Pt does have a level entrance through Yoruba doors in the back but it is only accessible by gravel path . 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 He lives with his , Radha, who works at home and will be available and able to assist at discharge. M2 PT-IP Current Condition Start: 03/22/21 16:23 Freq: NEEDED Status: Active Protocol: Document 03/22/21 17:22 AW (Rec: 03/22/21 17:53 AW [id number]) Physical Therapy Current Condition Current Condition Evaluation Date 03/22/21 Treatment Diagnosis R VENKATESH with anterior approach; difficulty in walking Onset Date 03/22/21 Precautions Anterior Hip Precautions No Hip Extension,No Hip External Rotation Weight Bearing Status Weight Bearing Status Weight Bear as Tolerated M3 PT-IP Subjective Start: 03/22/21 16:23 Freq: NEEDED Status: Active Protocol: Document 03/22/21 17:22 AW (Rec: 03/22/21 17:53 AW [id number]) Subjective Physical Therapy Visit Type Type Initial Evaluation Visit Start Time 16:40 Visit Stop Time 17:22 Total Visit Minutes 42 Number of NONPROFIT FINANCIAL CONTROLLER Visits 0 Physical Therapy Visit Comments Patient Comments Pt is willing to work with PT Patient Goals Return home with spouse support. Therapy Pain Assessment Pain When Pain Assessed During Mobility Pain Present Pain Present Pain Reported Location right hip Intensity 5 Scale Used 4/10 at rest Pain Management Techniques Apply Cold,Modification of Treatment,Timing of Activity with Medications M4 PT-IP Mobility and Gait Start: 03/22/21 16:23 Freq: NEEDED Status: Active Protocol: Document 03/22/21 17:22 AW (Rec: 03/22/21 17:53 AW [id number]) PT-Bed Mobility Assessment Supine to Sit Supine to Sit Minimal Assistance,1 Person Assistance Scooting Scooting to Edge of Bed Contact Guard Assistance PT-Transfer Assessment Sit to and From Stand Sit to and from Stand Minimal Assistance,1 Person Assistance,Use of Upper Extremities Equipment Transfer Assistive Device Gait Belt,Front Wheeled Walker Orthotic/Prosthetic Devices or Brace: No Transfers Transfer Destination Chair Transfer Technique ambulated with fww Transfer Ability Level of Assist Contact Guard Assistance Comments Mobility Comments Pt was reclined in bed as PT arrived. BP 129/98 HR 101. Educated pt on anterior hip precautions and functional applications before pt completed supine to sit going to his left side (as he does at home). Pt needed min assist to right his trunk. He stood from the bed (raised ~2 inches to approximate home setup) min assist and used the walker for support as he distributed his weight. He ambulated CGA to the chair on the opposite side of the bed and sat CGA. He denied lightheadedness. He stood from the chair min A x 1 and ambulated to the toilet with FWW CGA. He was able to push the walker over the toilet and attempted to void with CGA for balance but was unsuccessful. He ambulated back to the chair and sat CGA. He looked piqued but denied symptoms. BP was 125/80 HR 102 . Provided cool washcloth and emesis bag. Notified RN of pt condition and possible need for chair alarm. Gait Assessment Gait Gait Assistance Required: Contact Guard Assist Distance (Feet) 20 Able to Maintain Weight Bearing Status Yes During Gait Assistive Devices Assistive Device Gait Belt,Front Wheeled Walker Orthotic/Prosthetic Devices or Brace: No Gait Deviations General Gait Pattern Antalgic,Decreased Stride Length,Decreased Feet Clearance,Flexed Trunk,Step-to Gait Factors Limiting Gait Function Factors Limiting Gait Function Decreased Activity Tolerance, Decreased Strength,Difficulty Following Directions,Limited Range of Motion,Pain,Poor Balance,Poor Safety Awareness Comments Gait Comments Pt required reminders not to excessively extend the hip or to externally rotate. Stair Climbing Assessment Comments Stair Climbing Comments Not assessed. PT-Balance Assessment Sitting Balance and Reactions Static Sitting Balance Ability Good Dynamic Sitting Balance Ability Good Standing Balance and Reactions Static Standing Balance Ability Good Dynamic Standing Balance Ability Fair Device Used FWW M5 PT-IP Objective Assessments Start: 03/22/21 16:23 Freq: NEEDED Status: Active Protocol: Document 03/22/21 17:22 AW (Rec: 03/22/21 17:53 AW [id number]) Orientation Orientation/Cognition Level of Alertness Confusional State Orientation Name,Month,Place,Situation Language Function Ability No Deficits Noted Safety Awareness Decreased Safety Awareness Memory Description Short Term Impaired Comments Pt unable to recall precautions five minutes after education and did not consult the sheet posted in the room for assistance. Gross Range of Motion Upper Extremity ROM Assessment Within Functional Limits Lower Extremity ROM Assessment Right Impaired Strength Upper Extremity Strength Assessment Within Functional Limits Lower Extremity Strength Assessment Right Impaired Hip 3/5 Knee 4+/5 Ankle 4/5 Comments Strength Comments LLE grossly 4+/5 Sensation Assessment Sensation Gross Sensation WNL Muscle Tone Muscle Tone WNL Yes M6 PT-IP Treatment Start: 03/22/21 16:23 Freq: NEEDED Status: Active Protocol: Document 03/22/21 17:22 AW (Rec: 03/22/21 17:53 AW [id number]) Physical Therapy Treatment Exercises Exercises Ankle Pumps,Gluteal Sets,Quad Sets,Heel Slides Education Education Provided Precautions,Weight Bearing Status,Post-Op Packet,Safety Other Treatments Other Treatment Performed Educated pt on PT plan of care , weightbearing status, post op precautions, and safe use of FWW. M7 PT-IP Assessment and Plan Start: 03/22/21 16:23 Freq: NEEDED Status: Active Protocol: Document 03/22/21 17:22 AW (Rec: 03/22/21 17:53 AW [id number]) PT Summary Assessment and Plan Potential Rehabilitation Potential Good Status of Condition at Evaluation Evolving Summary Impairments Pain,ROM,Strength,Balance, Cognition,Bed Mobility, Transfers,Gait,Activity Tolerance Assessment Summary Caden is a 60 yo man seen for PT evaluation on POD0 following R VENKATESH with anterior approach. According to the pt, he is independent in all regards at baseline. He lives with his who will be available and able to assist at discharge. CLOF: Pt required CGA to min assist with bed mobility, ambulation, and transfers with FWW. He was forgetful and unable to recall or functionally implement anterior hip precautions without frequent cues. PT to conduct caregiver training with pt's before discharge home with assist and outpatient PT. Attempted to set up training but was unavailable. She is rooming in [facility] so PT will check in AM for best time. Goals Bed Mobility Goal Standby Assistance Transfer Goal Standby Assistance,Front Wheeled Walker Gait Goal Standby Assistance,Front Wheel Walker Gait Distance 150 Other Goals - up/down one step with INDUSTRIAL REGISTERED NURSE or SPC CGA Days to Meet Goals 2 Frequency of Treatment Frequency Of Treatment Twice a Day Treatment Plan Physical Therapy Treatment Plan Bed Mobility Training,Transfer Training,Gait Training, Therapeutic Exercise,Balance Retraining,Post Op Education, Discharge Planning,Hot or Cold Pack,Neuromuscular Re-ed Other Recommendations and Next Treatment check with for best CGT Focus time; train on precautions for carryover and reinforcement Precautions Anterior Hip Precautions No Hip Extension,No Hip External Rotation Other Precautions WBAT RLE Recommendations To Nursing Amount of Assist Needed 1 Person Assist Discharge Recommendations PT Discharge Recommendations Home with Assistance, Outpatient PT Transportation Needs at Discharge Private Vehicle
[2021-03-22] MEDS: OXYCODONE IR 5 MG TABLET PO ×2 (19:30→22:31)
[2021-03-22] MEDS: DOCUSATE 100 MG CAPSULE PO (20:32)
[2021-03-22] MEDS: ASPIRIN EC 81 MG TABLET PO (20:33)
[2021-03-23 00:05] VITALS: BP 123/80; PULSE 81; RESP 18; TEMP 36.9; O2SAT 95
[2021-03-23] MEDS: CEFAZOLIN 1 GM VIAL 2 GM IV (00:45)
[2021-03-23] MEDS: OXYCODONE IR 5 MG TABLET PO ×2 (01:09→06:04)
[2021-03-23 04:45] VITALS: BP 129/81; PULSE 59; RESP 16; TEMP 36.7; O2SAT 99
[2021-03-23 07:20] LABS: Hematocrit 35.8 % (41-53); Hemoglobin 12.4 g/dL (13.5-17.5)
--- NOTE | 2021-03-23 07:40 | PM.PNPO.1 ---
Subjective Subjective Date Patient Seen: 03/23/21 Time Patient Seen: 07:40 Interval history: Patient states he is doing well overall and is in minimal discomfort at rest. He notes that he has been successfully ambulating throughout his room to get up and use the commode. At this time the patient denies fever, chills, nausea, chest pain, shortness of breath, or urinary retention. Patient notes that he is looking forward to working with physical therapy today possibly being discharged home. Exam Vital Signs (past 8 hours): - 03/23/21 00:05 03/23/21 04:45 Temperature 98.5 F 98.1 F Pulse Rate 81 59 L Respiratory Rate 18 16 Blood Pressure 123/80 129/81 Pulse Oximetry 95 99 Oxygen Delivery Method Room Air Oxygen Flow Rate 0 Narrative Exam Narrative: Pleasant 60-year-old male postop day 1 status post right anterior total hip arthroplasty. Patient is resting comfortably in chair, is in no acute distress, is alert and oriented x3. Skin is warm and dry, and the skin surrounding the incision site is free of erythema, warmth, induration, or discharge. Aquacel dressing over the incision site is clean, dry, and intact. No strike through appreciated on the bandage. Good sensation appreciated throughout the bilateral lower extremities light touch. Hip flexion performed bilaterally without difficulty or discomfort, left greater than right. Ankle dorsiflexion, plantar flexion, eversion, inversion performed bilaterally without difficulty or discomfort. Palpable pulses appreciated, capillary refill less than 2 seconds. Calves are soft nontender, negative Homans sign. No other signs of DVT appreciated. Const General: cooperative, healthy appearing and comfortable Resp Effort & Inspection: normal respiratory effort and able to speak in complete sentences Skin General: no rashes or lesions noted Objective Labs Result Diagrams: 03/23/21 06:54 Labs: Laboratory Results - last 24 hr 03/23/21 06:54 Hgb 12.4 L Hct 35.8 L PFSH Medical History CAD (coronary artery disease) Cardiomyopathy DDD (degenerative disc disease) Diverticulosis Gout Hearing impaired HLD (hyperlipidemia) HTN (hypertension) Lumbar radiculopathy Myocardial infarction (~2008) Pre-diabetes Prinzmetal angina Spinal stenosis Surgical History History of back surgery History of fusion of cervical spine Hx of right inguinal hernia repair (06/07/20) Family History Father Colon cancer Mother Heart disease Stroke Social History marital status: household members: spouse Smoking Status: Never smoker alcohol intake: former Assessment & Plan Post-op Postoperative Procedures: Procedures Operation Date: 03/22/21 07:45 Actual Procedures Side Surgeon p Total Hip Arthroplasty/Anterior Approach Right Pebbles Flynn MD Postoperative day: 1 Postoperative status: doing well Postoperative plan: ambulate Postoperative plan narrative: Patient is to continue working on ambulation with the assistance of a front wheeled walker with physical therapy. Current pain management regimen is to be continued as it is adequately controlled the patient's pain level at this time. Aspirin 81 mg twice daily is to be continued for DVT prophylaxis. Dressing over the incision site is to remain intact for 2 weeks. Anterior hip replacement precautions. Pending successful work with PT patient likely to be discharged home today. Time Spent With Patient Time with patient: less than 15 minutes
--- NOTE | 2021-03-23 08:14 | P.DS_ITS ---
History of Present Illness <Maikol Easley PA-C - Last Filed: 03/23/21 08:17> History of Present Illness Date Patient Seen: 03/23/21 Time Patient Seen: 08:14 Chief complaint: R Total Hip Arthroplasty/Anterior Approach *OPB* Narrative: Refer to previous HPI. Discharge Providers <Maikol Easley PA-C - Last Filed: 03/23/21 08:17> Provider Primary care physician: Mamta Londono MD Consults: 03/22/21 06:43 Consult to Anesthesiology Routine Comment: Consulting Provider: Anesthesiologist Reason for consultation: Regional block for post operative pain control 03/22/21 13:21 Consult to Discharge Planning Routine Comment: Consult to Physical Therapy Evaluate & Treat Comment: Physician Instructions: post op VENKATESH protocol Consult to Respiratory Therapy Evaluate & Treat Comment: Physician Instructions: Evaluate and treat Discharge provider: Maikol Easley PA-C <Shital Serna MD - Last Filed: 03/23/21 14:31> Provider Discharge Date: 03/23/21 Summary <Maikol Easley PA-C - Last Filed: 03/23/21 08:17> Hospital Course Discharge Diagnosis: Right hip osteoarthritis Status post right anterior total hip arthroplasty Hospital Course: Patient was admitted to the hospital following the above-listed procedure for the above-listed diagnosis. Following the procedure the patient has been convalescing appropriately in his pain is managed with his current pain management regimen. Patient has successfully worked on ambulation with the assistance of a front wheel walker with physical therapy. Throughout his time in the hospital the patient has denied fever, chills, nausea, chest pain, shortness of breath, or urinary retention. Patient has remained weight-bearing as tolerated with anterior hip replacement precautions. Aspirin 81 mg twice daily has been administered for DVT prophylaxis along with the assistance of sequential compression devices. Status at Discharge Cognitive/behavioral status at discharge: oriented Functional status at discharge: uses cane/walker Overall status at discharge: patient is progressing back to baseline Exam <Maikol Easley PA-C - Last Filed: 03/23/21 08:17> Vital Signs (past 8 hours): - 03/23/21 04:45 Temperature 98.1 F Pulse Rate 59 L Respiratory Rate 16 Blood Pressure 129/81 Pulse Oximetry 99 Oxygen Delivery Method Room Air Oxygen Flow Rate 0 Narrative Exam Narrative: Pleasant 60-year-old male postop day 1 status post right anterior total hip arthroplasty. Patient is resting comfortably in chair, is in no acute distress, is alert and oriented x3. Skin is warm and dry, and the skin surrounding the incision site is free of erythema, warmth, induration, or discharge. Aquacel dressing over the incision site is clean, dry, and intact. No strike through appreciated on the bandage. Good sensation appreciated throughout the bilateral lower extremities light touch. Hip flexion performed bilaterally without difficulty or discomfort, left greater than right. Ankle dorsiflexion, plantar flexion, eversion, inversion performed bilaterally without difficulty or discomfort. Palpable pulses appreciated, capillary refill less than 2 seconds. Calves are soft nontender, negative Homans sign. No other signs of DVT appreciated. Const General: cooperative, healthy appearing and comfortable Resp Effort & Inspection: normal respiratory effort and able to speak in complete sentences Skin General: no rashes or lesions noted Objective <Maikol Easley PA-C - Last Filed: 03/23/21 08:17> Labs Result Diagrams: 03/23/21 06:54 Labs: Laboratory Results - last 24 hr 03/23/21 06:54 Hgb 12.4 L Hct 35.8 L PFSH <Maikol Easley PA-C - Last Filed: 03/23/21 08:17> Medical History CAD (coronary artery disease) Cardiomyopathy DDD (degenerative disc disease) Diverticulosis Gout Hearing impaired HLD (hyperlipidemia) HTN (hypertension) Lumbar radiculopathy Myocardial infarction (~2008) Pre-diabetes Prinzmetal angina Spinal stenosis Surgical History History of back surgery History of fusion of cervical spine Hx of right inguinal hernia repair (06/07/20) Family History Father Colon cancer Mother Heart disease Stroke Social History marital status: household members: spouse Smoking Status: Never smoker alcohol intake: former Discharge Assessment & Plan <Maikol Easley PA-C - Last Filed: 03/23/21 08:17> Assessment and Plan Assessment: Patient is doing well. Plan of Treatment: Patient is to continue working with outpatient physical therapy following discharge from the hospital. First postoperative visit in clinic is scheduled for 2 weeks following discharge from the hospital. Current pain management regimen is to be continued as it is adequately controlled the patient's pain level at this time. Aspirin 81 mg twice daily is to be continued for 6 weeks fo r DVT prophylaxis. Patient is to remain weight-bearing as tolerated with the assistance of a front wheeled walker. Dressing of the incision site is to remain intact for 2 weeks. Contact clinic if the dressing becomes damaged or soiled. Patient is to contact clinic with any concerns or questions. Any signs of increased redness, swelling, warmth, pain, or discharge from around the incision site should be reported to the clinic. Anterior hip replacement precautions. Discharge Plan Discharge Plan Patient Disposition: Home Provider Discharge Comment: Patient cleared for discharge pending PT clearance. Discharge orders & Medications Discharge Orders: Discharge (Order); Ordered 03/23/21 Ordered By: Shital Serna Prescriptions: New aspirin 81 mg Tablet,Delayed Release (Dr/Ec) 81 mg PO BID 42 Days Qty: 84 RF: 0 docusate sodium [DOK] 100 mg Capsule 100 mg PO BID Qty: 30 RF: 0 ondansetron 4 mg Tablet,Disintegrating 4 mg PO Q4HR PRN (Reason: Nausea) Qty: 6 RF: 1 oxycodone 5 mg Tablet 5 mg PO Q4HR Qty: 42 RF: 0 Continued nitroglycerin [Nitrostat] 0.4 mg tablet, sublingual 0.4 mg SL Q5M PRN (Reason: Chest Pain) RF: 0 aspirin 81 mg Tablet,Delayed Release (Dr/Ec) 81 mg PO DAILY RF: 0 ibuprofen 200 mg Tablet 200 - 400 mg PO Q6H PRN (Reason: Pain) RF: 0 lisinopril 5 mg Tablet 5 mg PO DAILY RF: 0 acetaminophen 500 mg Capsule 1,000 - 1,500 mg PO TID PRN (Reason: Pain) RF: 0 Follow up/Referrals: Mamta Londono MD [Primary Care Provider] - Diet/Activity/Treatments Activity: Weight-bearing as tolerated with the assistance of a front wheeled walker. Anterior hip replacement precautions. Skin/Wound/Dressing Care Report to your healthcare provider any signs of infection, such as:: chills, fever, night sweats, increased pain, unusual drainage and unusual redness Dressing: Aquacel dressing over the incision site should remain intact for 2 weeks. Contact the clinic if the dressing becomes damaged or soiled. Other wound treatment: Avoid placing topical ointments over the incision site. Avoid soaking the incision site. Visit Report/Discharge Packet Instructions: DI for Hip Replacement Stand Alone Forms: Surgery Discharge Discharge Data Primary Care Provider: Mamta Londono Attending Provider: Pebbles Flynn
[2021-03-23] MEDS: ASPIRIN EC 81 MG TABLET PO (08:53)
[2021-03-23] MEDS: ACETAMINOPHEN 325 MG TABLET 650 MG PO (08:53)
[2021-03-23 08:54] VITALS: BP 116/79; PULSE 76
[2021-03-23] MEDS: OXYCODONE IR 10 MG TABLET PO ×2 (08:54→13:09)
[2021-03-23] MEDS: DOCUSATE 100 MG CAPSULE PO (08:54)
[2021-03-23] MEDS: lisinopriL 5 MG TABLET PO (08:54)
--- NOTE | 2021-03-23 09:43 | PC.NURSE ---
Addendum entered by Leah Mata R.N. 03/23/21 15:07: Patient given discharge instruction regarding f/u appointment, wound care, activity and pain control. Patient verbalized understanding. Patient's IV removed for discharge. Patient tolerated. Patient discharged via wheelchair with and aide assist. Original Note: Patient up to chair for breakfast, c/o pain with movement 7/10, 5/10 when at rest. Patient reports the OXY 5mg did not seem to touch the pain, BRIDGET Easley aware, OXY 10mg ordered and administered to patient prior to working with PT. Dsg CDI, + CMS, SCD's removed for activity. Saline locked at this time. Patient denies N/V, tolerating diet. BT active x 4, reports flatus.
--- NOTE | 2021-03-23 09:45 | PT.IPTN ---
Current Diagnoses Unilateral primary osteoarthritis, right hip (03/22/21) Surgery Performed Operation Date: 03/22/21 07:45 Actual Procedures p Total Hip Arthroplasty/Anterior Approach(Right) - Pebbles Flynn MD Physical Therapy Treatment Note M2 PT-IP Current Condition Start: 03/22/21 16:23 Freq: NEEDED Status: Active Protocol: Document 03/22/21 17:22 AW (Rec: 03/22/21 17:53 AW [id number]) Physical Therapy Current Condition Current Condition Evaluation Date 03/22/21 Treatment Diagnosis R VENKATESH with anterior approach; difficulty in walking Onset Date 03/22/21 Precautions Anterior Hip Precautions No Hip Extension,No Hip External Rotation Weight Bearing Status Weight Bearing Status Weight Bear as Tolerated M3 PT-IP Subjective Start: 03/22/21 16:23 Freq: NEEDED Status: Active Protocol: Document 03/23/21 09:01 CLB (Rec: 03/23/21 10:51 CLB [id number]) Subjective Physical Therapy Visit Type Type Treatment Note Visit Start Time 09:01 Visit Stop Time 09:45 Total Visit Minutes 44 Notes Radha present for CG training. Number of AUTOMOTIVE SALES MANAGER Visits 1 Physical Therapy Visit Comments Patient Comments Pt is willing to work with PT Patient Goals Return home with spouse support. Therapy Pain Assessment Pain When Pain Assessed During Mobility Pain Present Pain Present Pain Reported Location right hip Intensity 8 Scale Used decreased once up and ambulating 6/10 Pain Management Techniques Apply Cold,Modification of Treatment,Timing of Activity with Medications M4 PT-IP Mobility and Gait Start: 03/22/21 16:23 Freq: NEEDED Status: Active Protocol: Document 03/23/21 09:01 CLB (Rec: 03/23/21 10:51 CLB [id number]) PT-Bed Mobility Assessment Supine to Sit Supine to Sit Standby Assistance,1 Person Assistance,Head of Bed Elevated Sit to Supine Sit to Supine Contact Guard Assistance Scooting Scooting to Edge of Bed Standby Assistance PT-Transfer Assessment Sit to and From Stand Sit to and from Stand Standby Assistance,1 Person Assistance,Use of Upper Extremities Equipment Transfer Assistive Device Gait Belt,Front Wheeled Walker Orthotic/Prosthetic Devices or Brace: No Transfers Transfer Destination Bed,Chair Transfer Technique ambulated with fww Transfer Ability Level of Assist Standby Assistance,1 Person Assistance,Use of Upper Extremities Comments Mobility Comments Pt in bed able to get to EOB SBA and stand SBA. Pt ambulated in spears ~150ft with FWW/SBA, pt with good recall for education on step length and walker use and able to avoid ER of hip during turns. Pt returned to room sitting in chair SBA with cues to put leg forward to decrease pain when sitting. Pt performed ther ex in chair. After demonstrating how to climb platform step pt stood SBA and climbed one step with FWW w/ providing CGA. Pt then ambulated to left bedside and was able to get to supine with providing CGA of RLE onto bed. Pt performed HS in supine. Pt left in bed with all needs within reach and present. Informed RN of pt mobility. Gait Assessment Gait Gait Assistance Required: Standby Assistance,1 Person Assist Distance (Feet) 150 Able to Maintain Weight Bearing Status Yes During Gait Assistive Devices Assistive Device Gait Belt,Front Wheeled Walker Orthotic/Prosthetic Devices or Brace: No Gait Deviations General Gait Pattern Antalgic,Decreased Stride Length,Decreased Feet Clearance,Flexed Trunk,Step-to Gait Factors Limiting Gait Function Factors Limiting Gait Function Decreased Activity Tolerance, Decreased Strength,Difficulty Following Directions,Limited Range of Motion,Pain,Poor Balance Comments Gait Comments see mobility comments Stair Climbing Assessment Evaluation Level of Assist On Stairs Contact Guard Assistance,1 Person Assistance Devices Stair Climbing Assistive Devices Front Wheel Walker Technique/Endurance Stair Climbing Direction Ascend and Descend Number of Steps Climbed 1 Stair Climbing Set # Repetitions (reps) 1 M5 PT-IP Objective Assessments Start: 03/22/21 16:23 Freq: NEEDED Status: Active Protocol: Document 03/22/21 17:22 AW (Rec: 03/22/21 17:53 AW [id number]) Orientation Orientation/Cognition Level of Alertness Confusional State Orientation Name,Month,Place,Situation Language Function Ability No Deficits Noted Safety Awareness Decreased Safety Awareness Memory Description Short Term Impaired Comments Pt unable to recall precautions five minutes after education and did not consult the sheet posted in the room for assistance. Gross Range of Motion Upper Extremity ROM Assessment Within Functional Limits Lower Extremity ROM Assessment Right Impaired Strength Upper Extremity Strength Assessment Within Functional Limits Lower Extremity Strength Assessment Right Impaired Hip 3/5 Knee 4+/5 Ankle 4/5 Comments Strength Comments LLE grossly 4+/5 Sensation Assessment Sensation Gross Sensation WNL Muscle Tone Muscle Tone WNL Yes M6 PT-IP Treatment Start: 03/22/21 16:23 Freq: NEEDED Status: Active Protocol: Document 03/23/21 09:01 CLB (Rec: 03/23/21 10:51 CLB [id number]) Physical Therapy Treatment Exercises Exercises Ankle Pumps,Gluteal Sets,Quad Sets,Heel Slides Education Education Provided Precautions,Weight Bearing Status,Post-Op Packet,Safety Other Treatments Other Treatment Performed post op precations M7 PT-IP Assessment and Plan Start: 03/22/21 16:23 Freq: NEEDED Status: Active Protocol: Document 03/23/21 09:01 CLB (Rec: 03/23/21 10:51 CLB [id number]) PT Summary Assessment and Plan Potential Rehabilitation Potential Good Status of Condition at Evaluation Evolving Summary Progress Towards Goals Progressing Toward Goals Assessment Summary Pt is SBA for all mobility with need of CGA for stair climbing for safety. Pt able to perform all ther ex. Pt able to appropriately assist pt with all mobility in a safe manner. Pt to d/c home with assistance when medically stable. Goals Bed Mobility Goal Standby Assistance Transfer Goal Standby Assistance,Front Wheeled Walker Gait Goal Standby Assistance,Front Wheel Walker Gait Distance 150 Other Goals - up/down one step with ADDRESSING MACHINE OPERATOR or SPC CGA Days to Meet Goals 2 Frequency of Treatment Frequency Of Treatment Twice a Day Treatment Plan Physical Therapy Treatment Plan Bed Mobility Training,Transfer Training,Gait Training, Therapeutic Exercise,Balance Retraining,Post Op Education, Discharge Planning,Hot or Cold Pack,Neuromuscular Re-ed Precautions Anterior Hip Precautions No Hip Extension,No Hip External Rotation Other Precautions WBAT RLE Recommendations To Nursing Amount of Assist Needed 1 Person Assist Discharge Recommendations PT Discharge Recommendations Home with Assistance, Outpatient PT Transportation Needs at Discharge Private Vehicle
[2021-03-23 09:48] VITALS: BP 116/79; PULSE 76; RESP 16; TEMP 37.3; O2SAT 94
--- NOTE | 2021-03-23 14:27 | CM.DANOTE ---
Discharge Planning/Care Management DCP: assessment: case received, EMR reviewed and met with pt and his now. Pt is a 60 year old male who admitted yesterday for a scheduled R VENKATESH/anterior approach. Payer: [employer] /Medicaid PCP: Mamta Londono Pt and his Radha confirm that PT worked with him yesterday and again today and they have cleared me for d/c today. Ortho PA Maikol saw pt early this morning and said d/c was pending this clearance. Pt states, I am eager to get home. We are just waiting for someone to complete all this. Dr. Joshua Stallings is here assisting in the orthopedic discharges and she agrees to see pt next. P: home when ok'd by ortho team. Likely today. CM Discharge Assessment Start: 03/23/21 14:26 Freq: Status: Active Protocol: Document 03/23/21 14:26 ITV (Rec: 03/23/21 14:26 ITV [id number]) Discharge Planning Assessment Advance Directives? Yes Advance Directives on File No History Provided By Patient,Medical Record Prior Living Arrangements House Household Members spouse Independent with ADL's Yes Is patient alert and oriented? Yes Pre-Anesthesia Assessment Start: 03/12/21 12:51 Freq: Status: Complete Protocol: Document 03/12/21 12:51 CAB (Rec: 03/12/21 13:40 CAB [id number]) Pre-Anesthesia Assessment Patient Information Reviewed Via Phone Assessment Assessment Completed With Spouse Comment Pt gave permission to speak w/ for assessment, he was present Diagnostic Results BMP/CMP,CBC,EKG Comment Labs @ [facility], EKG w/cardiology scanned in, COVID screen @[facility] Primary Care Provider Mamta Londono Seen Specialist in Last 12 Months Yes Specialist Seen Clinical Program Manager,[facility] [employer], Orthopedist Primary Language Mal[place]ian Preferred Language Mal[place]ian Pet House Sitter Required No Height 182.88 cm Weight 88.451 kg Body Mass Index (BMI) 26.4 Hearing Ability Hard of Hearing Visual Assist None Dentition Type Teeth, Natural Present Barriers to Learning None Hx Anesthesia Reactions Yes: torrey felix worked the second time he had surgery Hx Family Anesthesia Reaction No Hx Malignant Hyperthermia No Hx Blood Transfusions No Anesthesia Review Requested No Diamond Cutter No alcohol intake former Alcohol Intake Frequency Other: Quit approx 15 years r/t ETOH abuse Smoking Status Never smoker Substance Use Type does not use Pain Present Pain Reported Musculoskeletal Symptoms Abnormal Gait,Back Pain, Difficulty Walking,Joint Pain, Neck Pain History of Falling (Recent or History of No ) Patient is completely paralyzed or No completely immobile Mental Status Oriented to own ability Is patient on oxygen? No Does patient have HAMMONDS/SOB No Hx Sleep Apnea No CPAP/BIPAP use not prescribed Currently Taking a Beta Yogi No Can You Climb a Flight of Stairs Without Yes SOB Hx Chest Pain Yes: Hx of prinzmetal angina- pt denies any current chest pain Hx SOB No Hx Syncope or Dizziness No Anti-Coagulant Therapy Yes: ASA 81mg/pt will check w/ PCP to see if needed to hold or continue Has a Clinical Program Manager Yes: Dr. Echeverria Cardiac Testing Yes: Nuc perf scan @ Hx Pacemaker/ICD No Pacemaker Rep Required? No Cardiac Clearance Received Yes Comment Cardiac clearance scanned to record Diet Type At Home Regular dysphagia No Urinary Catheter Present No Hx Urinary Self Catheterization No Diabetes No: Pre-diabetes Hx Drug Resistant Organism No Presence of External or Internal Medical Yes: Lumbar/cervical hardware, Devices tooth implant Have you had any close contact with No someone diagnosed with COVID-19? Marital Status Lives With spouse Prior Living Arrangements House Number of Floors (Floors) One Floor Support System Spouse Does the Patient Have Assistance After Yes Surgery Patient Discharge Plan Description Return Home Comment Pt not advised on length of stay per surgeon Feels Safe in Current Environment Yes Been Physically Hurt or Threatened By a No Person in Current Environment Do you have thoughts of harming yourself None or others? Are you currently considering suicide? No Do you have a plan to hurt yourself or No Plan others? Do You Have Any Spiritual Beliefs That No May Affect Your HC Choices? Do You Have Any Cultural Practices That No May Affect Your HC Choices? Comment Adrian Who Can We Speak to About Patient's Care only-Radha Identifying Code for Release of Patient Suyapa Aguayo Health Care Proxy/Next of Kin Radha - Health Care Proxy , Emergency Contact Name Roxanne () Emergency Contact , Advance Directives? Yes Advance Directives on File No Requested Patient Bring Advanced Yes Directives DOS Power of Payroll Accounting Clerk Yes Power of Payroll Accounting Clerk Name Roxanne () Power of Payroll Accounting Clerk PAC Instructions Durable medical equipment, Medications to take/avoid, Nasal antibiotic,No ETOH/ petroleum product on skin DOS, NPO,Post-op transportation, Sensory aids,Sturdy shoes/ comfortable clothes,Do not bring valuables and remove jewelry
== END 2021-03-23 15:00 | disposition home or self-care (01) ==
LOC: OR 06:25 → AC 06:25
PROVIDERS: PCP Student in an Organized Health Care Education/Training Program; Referring Provider Student in an Organized Health Care Education/Training Program; Visit Provider Orthopaedic Surgery
PROC: (CPT 27130; principal; 2021-03-22 07:45)
DX: M16.11 Unilateral primary osteoarthritis, right hip (principal); I10 Essential (primary) hypertension; I25.10 Atherosclerotic heart disease of native coronary artery without angina pectoris; I25.2 Old myocardial infarction
CPT/HCPCS: 27130; 36415; 72170; 73502; 76000; 85014; 85018; 97110; 97116; 97161; 97530; C1776; C9290; J0690; J1100; J1170; J2250; J2405; J2704; J3010

== ENCOUNTER → 2021-03-28 13:05 | Outpatient (CLI) | payer OTHER, MEDICAID, SELFPAY ==
[2021-03-22 13:26] VITALS: BMI 27.1
--- NOTE | 2021-03-28 | DI.US.S_ITS ---
PROCEDURE: [facility] VENOUS LOW EXTREM RT INDICATIONS: R/O DVT TECHNIQUE: Real-time imaging, as well as color and pulse Doppler interrogation, were performed of the lower extremity deep veins from the inguinal ligament to the popliteal fossa. COMPARISON: [facility], , [facility] VENOUS LOW EXTREM RT, 03/21/2020, 10:10. FINDINGS: The common femoral, femoral and popliteal veins are normally compressible, and free of intraluminal thrombus. Color and pulse Doppler demonstrate normal phasic intraluminal flow. There is normal augmentation response to distal compression maneuver. IMPRESSION: No deep venous thrombosis. Dictated by: Lilia Laureano M.D. on 03/28/2021 at 16:10 Approved by: Lilia Laureano M.D. on 03/28/2021 at 16:11
== END ==
PROVIDERS: Family Provider Student in an Organized Health Care Education/Training Program; PCP Student in an Organized Health Care Education/Training Program; Referring Provider Physician Assistant; Visit Provider Physician Assistant
DX: M16.11 Unilateral primary osteoarthritis, right hip (principal)
CPT/HCPCS: 93971

== ENCOUNTER 2021-06-28 09:45 | Outpatient (RCR) | payer OTHER, MEDICAID, SELFPAY ==
[2021-03-22 13:26] VITALS: BMI 27.1
--- NOTE | 2021-04-03 09:47 | PT.OIE ---
Current Diagnoses Unilateral primary osteoarthritis, right hip (04/03/21) Past Medical History (Last Reviewed 03/23/21 @ 08:16 by Maikol Easley PA-C) CAD (coronary artery disease) Cardiomyopathy DDD (degenerative disc disease) Diverticulosis Gout Hearing impaired HLD (hyperlipidemia) HTN (hypertension) Lumbar radiculopathy Myocardial infarction (~2008) Pre-diabetes Prinzmetal angina Spinal stenosis Past Surgical History (Last Reviewed 03/23/21 @ 08:16 by Maikol Easley PA-C) History of back surgery History of fusion of cervical spine Hx of right inguinal hernia repair (06/07/20) Visit Care Team Role Provider Type Mamta Londono MD Primary Care Provider Physician Specialty: Family Practice Address: [address] [place] [address], [place], [address] Email: [email or web address] [email or web address] Flynn MD Attending Provider Physician Referring Provider Specialty: Orthopedic Surgery Address: [address] [place] [address], [id number] Email: [email or web address] Initial Evaluation PT-OP-A Visit Information Start: 03/30/21 16:01 Freq: Status: Active Protocol: Document 04/03/21 07:36 MB (Rec: 04/03/21 07:47 MB [id number]) Out-Patient Physical Therapy Visit Information Visit Information Visit Type Initial Evaluation Visit Note George 1 eval, 24 combined OT/ PT visits Pt arrives late to initial evaluation, Roxanne, arrives with pt Visit Start Time 07:36 Visit Stop Time 08:06 Total Visit Minutes 30 Visit Number 1 Evaluation Information Evaluation Date 04/03/21 Precautions Precautions Anterior hip precautions right hip, WBAT PT-OP-B Current Condition Start: 03/30/21 16:01 Freq: Status: Active Protocol: Document 04/03/21 07:36 MB (Rec: 04/03/21 07:47 MB [id number]) Current Condition History of Current Condition Onset Date 03/22/21 Current Complaints Right sided lateral leg pain History of Current Condition Pt is s/p right THR on 03/22/21 . PMH includes: CAD, cardiomyopathy, DDD, hearing impaired, HLD, HTN, [place] 2009, pre-diabetes, back and neck fusions, hernia repair. Pt reports up to 7/10 lateral right hip pain. He states there is a lump there. He has not had his first post-op visit and will ask Dr. Flynn about this at the follow-up. Pt is using the rolling walker . He is not using a shower chair though he has one. He has two steps and no railing. 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 Prior Treatments and Tests Multiple surgeries and PT in the past for his neck that went well Treatment Goals Patient/Caregiver Goals To get back in shape PT-OP-C Subjective Start: 03/30/21 16:01 Freq: Status: Active Protocol: Document 04/03/21 07:36 MB (Rec: 04/03/21 07:47 MB [id number]) OP-PT Subjective Patient Comments Patient Comments See history of current condition PT-OP-G Mobility & Gait Start: 03/30/21 16:01 Freq: Status: Active Protocol: Document 04/03/21 07:36 MB (Rec: 04/03/21 08:11 MB [id number]) OP Gait Assessment Gait Gait Assistance Required: Independent Distance (Feet) 30 Able to Maintain Weight Bearing Status Yes During Gait Assistive Devices Assistive Device None,Front Wheeled Walker Orthotic/Prosthetic Devices or Brace: No Gait Deviations General Gait Pattern Antalgic,Decreased Stride Length,Decreased Feet Clearance,Flexed Trunk,Step-to Gait Factors Limiting Gait Function Factors Limiting Gait Function Decreased Activity Tolerance, Decreased Strength,Limited Range of Motion,Pain Comments Gait Comments Pt arrives gait training with walker too far in front of him . His gait improves with posture and foot clearance and reciprocal gait when he steps closer to the walker. Pt's gait without walker is much slower and more antalgic: decreased step-length and foot clearance, little arm swing on the right and decreased right hip flexion and extension. PT-OP-J Posture/Palpation/Skin Start: 03/30/21 16:01 Freq: Status: Active Protocol: Document 04/03/21 07:36 MB (Rec: 04/03/21 08:11 MB [id number]) Posture Evaluation Comments Posture Comments Posture without AD is poor, flexed and decreased WB through this right LE with increased hip flexion and right LE guarding PT-OP-K Range of Motion Start: 03/30/21 16:01 Freq: Status: Active Protocol: Document 04/03/21 07:36 MB (Rec: 04/03/21 08:13 MB [id number]) Hip Goniometric Range of Motion Hip ROM Limitations Comments Limited passive right hip extension in supine and PT does not manually assess any hip range post-op. His leg does settle into better extension after lying several minutes PT-OP-M Strength Start: 03/30/21 16:01 Freq: Status: Active Protocol: Document 04/03/21 07:36 MB (Rec: 04/03/21 08:14 MB [id number]) Hip Strength Hip Manual Muscle Testing Right Comments Deferred MMT s/p surgery and pain Left Flexion (L2) 5 Normal Abduction 5 Normal Knee Strength Knee Manual Muscle Testing Right Comments Deferred MMT s/p right hip surgery and pain Left Flexion (S2) 4 Good Extension (L3) 5 Normal Ankle/Foot Strength Ankle and Foot Manual Muscle Testing Bilateral Dorsiflexion (L4) 5 Normal Toe Strength Toe Manual Muscle Testing Left Great Toe Extension 3+ Fair+ Right Great Toe Extension 3+ Fair+ PT-OP-Q Treatments Start: 03/30/21 16:01 Freq: Status: Active Protocol: Document 04/03/21 07:36 MB (Rec: 04/03/21 08:08 MB [id number]) Self-Care/Home Management Treatment Education Other Education Start back post-op exercises of AP, HS, hip abduction and adduction in supine, benefits of lying flat with leg extended, log roll technique, use of ice, sleeping on left side with pillow between his legs PT-OP-T Assessment and Plan Start: 03/30/21 16:01 Freq: Status: Active Protocol: Document 04/03/21 07:36 MB (Rec: 04/03/21 09:46 MB [id number]) Physical Therapy Assessment Rehab Potential Rehabilitation Potential Fair Evaluation Complexity Number of Personal Factors/Comorbidities 1-2 Number of Body Systems Impaired 1-2 Clinical Presentation at Evaluation Evolving Impairments Impairments Activity Tolerance,Balance, Edema,Functional Activities, Functional Mobility,Gait, Integument,Pain,Posture,ROM, Soft Tissue Mobility,Strength, Transfers Other Impairments Pt is reluctant to perform things that cause discomfort and this is a personal factor that might be a barrier to PT. His fills out all his paper work. Body systems affected include musculoskeletal and cardiac. His cardiac presentation is stable to evolving, orthopedic presentation should be stable post-op. Other Concerns Fall Risk Yes Goals 5 [facility] Goal (LTG) Pt will perform progressive HEP with I including balance, flexibility, strengthening and gait exercises to improve overall mobility and I by . LTG Duration 8 weeks 4 [employer] Goal (LTG) Pt will perform WNLs on a standardized balance test to improve safety by 06/03/21. LTG Duration 8 weeks 3 [facility] Goal (LTG) Pt will gait train at least 1400 feet without AD in 6 minutes to improve community ambulation by 06/03/21. LTG Duration 8 weeks 2 [facility] Goal (LTG) Pt will present with B hip flexion and abduction and knee flexion and extension strength to 5/5 to improve gait and transfers by 06/03/21. LTG Duration 8 weeks 1 Impairment LEF reflects 83.75% impairment [employer] Goal (LTG) Pt will present with an improved LEF score to reflect no more than 30% functional impairment by 06/03/21. LTG Duration 8 weeks Assessment Summary Assessment Pt is a 60 y/o male presenting with antalgic gait, decreased balance, strength and transfers s/p right anterior THR and he has anterior hip precautions and is WBAT. Pt and are aware of these precautions. He reports lateral right leg pain and is edematous there. He has not had his first follow-up yet and will mention to Dr. Flynn on appointment next week. Testing per was negative for blood clot. He will benefit from PT for flexibility, pelvic alignment, strengthening, balance and gait exercises. Pain may be a barrier to PT. Physical Therapy Plan Frequency and Duration Frequency of Treatment 2x/Week Duration of Treatment 8 weeks Plan of Care Start Date 04/03/21 Plan of Care End Date 06/03/21 Therapeutic Interventions Therapeutic Interventions Balance Training,Canalithic Repositioning,Gait Training, Home Exercise Program,Joint Mobilizations,Manual Therapy, Neuromuscular Re-education, Patient/Caregiver Education, Self-Care/Home Management,Soft Tissue Mobilization,Taping, Therapeutic Activities, Therapeutic Exercises Modalities Cold Pack/Ice Massage,Hot Packs Next Visit Focus/Plan Next Note Type Treatment Note Next Visit Plan Pelvic realignment exercises, right leg straight on mat hip flexor stretch, consider recumbent stepper
--- NOTE | 2021-04-03 09:48 | PT.OPPOC ---
Physical, Occupational & Speech Therapy At [facility] Current Diagnoses Unilateral primary osteoarthritis, right hip (04/03/21) Visit Care Team Role Provider Type Mamta Londono MD Primary Care Provider Physician Specialty: Family Practice Address: [address] [place] [address], [place], [address] Email: [email or web address] Pebbles Flynn MD Attending Provider Physician Referring Provider Specialty: Orthopedic Surgery Address: [address] [place] [address], [id number] Email: [email or web address] Plan Of Care PT-OP-T Assessment and Plan Start: 03/30/21 16:01 Freq: Status: Active Protocol: Document 04/03/21 07:36 MB (Rec: 04/03/21 09:46 MB [id number]) Physical Therapy Assessment Rehab Potential Rehabilitation Potential Fair Evaluation Complexity Number of Personal Factors/Comorbidities 1-2 Number of Body Systems Impaired 1-2 Clinical Presentation at Evaluation Evolving Impairments Impairments Activity Tolerance,Balance, Edema,Functional Activities, Functional Mobility,Gait, Integument,Pain,Posture,ROM, Soft Tissue Mobility,Strength, Transfers Other Impairments Pt is reluctant to perform things that cause discomfort and this is a personal factor that might be a barrier to PT. His fills out all his paper work. Body systems affected include musculoskeletal and cardiac. His cardiac presentation is stable to evolving, orthopedic presentation should be stable post-op. Other Concerns Fall Risk Yes Goals 5 [employer] Goal (LTG) Pt will perform progressive HEP with I including balance, flexibility, strengthening and gait exercises to improve overall mobility and I by . LTG Duration 8 weeks 4 [facility] Goal (LTG) Pt will perform WNLs on a standardized balance test to improve safety by 06/03/21. LTG Duration 8 weeks 3 [employer] Goal (LTG) Pt will gait train at least 1400 feet without AD in 6 minutes to improve community ambulation by 06/03/21. LTG Duration 8 weeks 2 [facility] Goal (LTG) Pt will present with B hip flexion and abduction and knee flexion and extension strength to 5/5 to improve gait and transfers by 06/03/21. LTG Duration 8 weeks 1 Impairment LEF reflects 83.75% impairment [facility] Goal (LTG) Pt will present with an improved LEF score to reflect no more than 30% functional impairment by 06/03/21. LTG Duration 8 weeks Assessment Summary Assessment Pt is a 60 y/o male presenting with antalgic gait, decreased balance, strength and transfers s/p right anterior THR and he has anterior hip precautions and is WBAT. Pt and are aware of these precautions. He reports lateral right leg pain and is edematous there. He has not had his first follow-up yet and will mention to Dr. Flynn on appointment next week. Testing per was negative for blood clot. He will benefit from PT for flexibility, pelvic alignment, strengthening, balance and gait exercises. Pain may be a barrier to PT. Physical Therapy Plan Frequency and Duration Frequency of Treatment 2x/Week Duration of Treatment 8 weeks Plan of Care Start Date 04/03/21 Plan of Care End Date 06/03/21 Therapeutic Interventions Therapeutic Interventions Balance Training,Canalithic Repositioning,Gait Training, Home Exercise Program,Joint Mobilizations,Manual Therapy, Neuromuscular Re-education, Patient/Caregiver Education, Self-Care/Home Management,Soft Tissue Mobilization,Taping, Therapeutic Activities, Therapeutic Exercises Modalities Cold Pack/Ice Massage,Hot Packs Next Visit Focus/Plan Next Note Type Treatment Note Next Visit Plan Pelvic realignment exercises, right leg straight on mat hip flexor stretch, consider recumbent stepper Plan of Care Dates Plan of Care Start Date 04/03/21 Plan of Care End Date 06/03/21 Electronically Signed by: Ria Lewis PT 04/03/21 [id number] Please Sign and Return: I have reviewed this Plan of Care and certify that the skilled therapy services above are required to meet the patient?s needs. Physician Signature Date Printed Name and Credentials Clinical Instructor Signature Printed Name and Credentials
--- NOTE | 2021-04-06 14:00 | PT.OTN ---
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 PMH includes: CAD, cardiomyopathy, DDD, hearing impaired, HLD, HTN, [place] 2009, pre-diabetes, back and neck fusions, hernia repair. Pt reports up to 7/10 lateral right hip pain. He states there is a lump there. He has not had his first post-op visit and will ask Dr. Flynn about this at the follow-up. Pt is using the rolling walker . He is not using a shower chair though he has one. He has two steps and no railing. 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 Prior Treatments and Tests Multiple surgeries and PT in the past for his neck that went well Treatment Goals Patient/Caregiver Goals To get back in shape PT-OP-C Subjective Start: 03/30/21 16:01 Freq: Status: Active Protocol: Document 04/06/21 12:03 MA (Rec: 04/06/21 12:46 MA [id number]) OP-PT Subjective Patient Comments Patient Comments Pt arrives without walker stating the dr told him he could go without it if he feels stable and if he works on his limp. PT-OP-G Mobility & Gait Start: 03/30/21 16:01 Freq: Status: Active Protocol: Document 04/03/21 07:36 MB (Rec: 04/03/21 08:11 MB [id number]) OP Gait Assessment Gait Gait Assistance Required: Independent Distance (Feet) 30 Able to Maintain Weight Bearing Status Yes During Gait Assistive Devices Assistive Device None,Front Wheeled Walker Orthotic/Prosthetic Devices or Brace: No Gait Deviations General Gait Pattern Antalgic,Decreased Stride Length,Decreased Feet Clearance,Flexed Trunk,Step-to Gait Factors Limiting Gait Function Factors Limiting Gait Function Decreased Activity Tolerance, Decreased Strength,Limited Range of Motion,Pain Comments Gait Comments Pt arrives gait training with walker too far in front of him . His gait improves with posture and foot clearance and reciprocal gait when he steps closer to the walker. Pt's gait without walker is much slower and more antalgic: decreased step-length and foot clearance, little arm swing on the right and decreased right hip flexion and extension. PT-OP-J Posture/Palpation/Skin Start: 03/30/21 16:01 Freq: Status: Active Protocol: Document 04/03/21 07:36 MB (Rec: 04/03/21 08:11 MB [id number]) Posture Evaluation Comments Posture Comments Posture without AD is poor, flexed and decreased WB through this right LE with increased hip flexion and right LE guarding PT-OP-K Range of Motion Start: 03/30/21 16:01 Freq: Status: Active Protocol: Document 04/03/21 07:36 MB (Rec: 04/03/21 08:13 MB [id number]) Hip Goniometric Range of Motion Hip ROM Limitations Comments Limited passive right hip extension in supine and PT does not manually assess any hip range post-op. His leg does settle into better extension after lying several minutes PT-OP-M Strength Start: 03/30/21 16:01 Freq: Status: Active Protocol: Document 04/03/21 07:36 MB (Rec: 04/03/21 08:14 MB [id number]) Hip Strength Hip Manual Muscle Testing Right Comments Deferred MMT s/p surgery and pain Left Flexion (L2) 5 Normal Abduction 5 Normal Knee Strength Knee Manual Muscle Testing Right Comments Deferred MMT s/p right hip surgery and pain Left Flexion (S2) 4 Good Extension (L3) 5 Normal Ankle/Foot Strength Ankle and Foot Manual Muscle Testing Bilateral Dorsiflexion (L4) 5 Normal Toe Strength Toe Manual Muscle Testing Left Great Toe Extension 3+ Fair+ Right Great Toe Extension 3+ Fair+ PT-OP-Q Treatments Start: 03/30/21 16:01 Freq: Status: Active Protocol: Document 04/06/21 12:03 MA (Rec: 04/06/21 12:46 MA [id number]) Cardio Equipment Recumbent Elliptical (Bi[employer]) Duration (Minutes) 6 Resistance 2 Seat Position 11 Therapeutic Exercises Supine Exercises ADD/ABD Side right Reps/Minutes x10 Pelvic Realignment Supine Exercise Name Pelvic realignment exercises Side right Reps/Minutes 5 min Stretch Supine Exercise Name Hip flexor stretch Side right Reps/Minutes 2x30 sec Comments RLE straight on mat, holding L knee toward chest Gait Training Gait Activity walking Description weight shifts lateral, fwd, walking with emphasis on heel strike Device Used Bar prn Surface smooth Distance/Duration 3x20 feet Treatment Focus weight acceptance Comments Increasing stance time on RLE Self-Care/Home Management Treatment Education Patient Education Home Exercise Program Other Education R hip flexor stretch with RLE straight on mat and pelvic realignment exercises added to HEP PT-OP-R Modalities Start: 04/06/21 13:54 Freq: Status: Active Protocol: Document 04/06/21 12:03 MA (Rec: 04/06/21 14:00 MA [id number]) Hot Pack/Cold Pack Treatment Cold Pack Location Ant. R hip Patient Position Hooklying Treatment Duration (minutes) 15 Patient Tolerance Good PT-OP-T Assessment and Plan Start: 03/30/21 16:01 Freq: Status: Active Protocol: Document 04/06/21 12:03 MA (Rec: 04/06/21 12:46 MA [id number]) Physical Therapy Assessment Goals 5 [facility] Goal (LTG) Pt will perform progressive HEP with I including balance, flexibility, strengthening and gait exercises to improve overall mobility and I by . LTG Duration 8 weeks 4 [facility] Goal (LTG) Pt will perform WNLs on a standardized balance test to improve safety by 06/03/21. 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 LTG Duration 8 weeks 2 [facility] Goal (LTG) Pt will present with B hip flexion and abduction and knee flexion and extension strength to 5/5 to improve gait and transfers by 06/03/21. LTG Duration 8 weeks 1 Impairment LEF reflects 83.75% impairment [facility] Goal (LTG) Pt will present with an improved LEF score to reflect no more than 30% functional impairment by 06/03/21. LTG Duration 8 weeks Assessment Summary Assessment Pt arrives without AD and walks with stiff RLE and decreased stance time on R. He has minimal pain warming up on recumbant stepper with lvl2 resistance. Performed hip flexor stretch supine with RLE extended, pt flexing LLE toward chest feeling a fairly significant stretch through front of R hip. 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 Added R hip flexor stretch and hip realignment exercises to HEP. Moved pt to ballet bar to work on weight acceptance through RLE with lateral and fwd weight shifts, decreasing fwd step length to adhere to ant hip precautions . Moved to full walking with emphasis on R heel strike with pt able to increase stance time and improve gait mechanics. Pt states he feels better walking now that I have warmed up and moved a bit . Pt would benefit from skilled therapy to decrease pain and improve gait mechanics on R side. Physical Therapy Plan Frequency and Duration Frequency of Treatment 2x/Week Duration of Treatment 8 weeks Plan of Care Start Date 04/03/21 Plan of Care End Date 06/03/21 Therapeutic Interventions Therapeutic Interventions Balance Training,Canalithic Repositioning,Gait Training, Home Exercise Program,Joint Mobilizations,Manual Therapy, Neuromuscular Re-education, Patient/Caregiver Education, Self-Care/Home Management,Soft Tissue Mobilization,Taping, Therapeutic Activities, Therapeutic Exercises Modalities Cold Pack/Ice Massage,Hot Packs Next Visit Focus/Plan Next Note Type Treatment Note Next Visit Plan Assess HEP exercises: Pelvic realignment exercises, right leg straight on mat hip flexor stretch. Continue to work on gait mechanics, increasing RLE stance time and encouraging R heel strike
--- NOTE | 2021-04-13 10:32 | PT.OTN ---
Current Diagnoses Unilateral primary osteoarthritis, right hip (04/13/21) Physical Therapy Treatment Note PT-OP-A Visit Information Start: 03/30/21 16:01 Freq: Status: Active Protocol: Document 04/13/21 09:44 MB (Rec: 04/13/21 10:32 MB [id number]) Out-Patient Physical Therapy Visit Information Visit Information Visit Type Treatment Note Visit Start Time 09:44 Visit Stop Time 10:26 Total Visit Minutes 42 Visit Number 3 Precautions Precautions Anterior hip precautions right hip, WBAT PT-OP-B Current Condition Start: 03/30/21 16:01 Freq: Status: Active Protocol: Document 04/03/21 07:36 MB (Rec: 04/03/21 07:47 MB [id number]) Current Condition History of Current Condition Onset Date 03/22/21 Current Complaints Right sided lateral leg pain History of Current Condition Pt is s/p right THR on 03/22/21 . PMH includes: CAD, cardiomyopathy, DDD, hearing impaired, HLD, HTN, [place] 2009, pre-diabetes, back and neck fusions, hernia repair. Pt reports up to 7/10 lateral right hip pain. He states there is a lump there. He has not had his first post-op visit and will ask Dr. Flynn about this at the follow-up. Pt is using the rolling walker . He is not using a shower chair though he has one. He has two steps and no railing. 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 Prior Treatments and Tests Multiple surgeries and PT in the past for his neck that went well Treatment Goals Patient/Caregiver Goals To get back in shape PT-OP-C Subjective Start: 03/30/21 16:01 Freq: Status: Active Protocol: Document 04/13/21 09:44 MB (Rec: 04/13/21 10:32 MB [id number]) OP-PT Subjective Patient Comments Patient Comments Pt states that he saw Dr. Flynn and she is with him that he does not need to use the walker despite antalgic gait. He is going outside to walk without walker each day. Pt drove his truck into PT. PT-OP-G Mobility & Gait Start: 03/30/21 16:01 Freq: Status: Active Protocol: Document 04/03/21 07:36 MB (Rec: 04/03/21 08:11 MB [id number]) OP Gait Assessment Gait Gait Assistance Required: Independent Distance (Feet) 30 Able to Maintain Weight Bearing Status Yes During Gait Assistive Devices Assistive Device None,Front Wheeled Walker Orthotic/Prosthetic Devices or Brace: No Gait Deviations General Gait Pattern Antalgic,Decreased Stride Length,Decreased Feet Clearance,Flexed Trunk,Step-to Gait Factors Limiting Gait Function Factors Limiting Gait Function Decreased Activity Tolerance, Decreased Strength,Limited Range of Motion,Pain Comments Gait Comments Pt arrives gait training with walker too far in front of him . His gait improves with posture and foot clearance and reciprocal gait when he steps closer to the walker. Pt's gait without walker is much slower and more antalgic: decreased step-length and foot clearance, little arm swing on the right and decreased right hip flexion and extension. PT-OP-J Posture/Palpation/Skin Start: 03/30/21 16:01 Freq: Status: Active Protocol: Document 04/03/21 07:36 MB (Rec: 04/03/21 08:11 MB [id number]) Posture Evaluation Comments Posture Comments Posture without AD is poor, flexed and decreased WB through this right LE with increased hip flexion and right LE guarding PT-OP-K Range of Motion Start: 03/30/21 16:01 Freq: Status: Active Protocol: Document 04/03/21 07:36 MB (Rec: 04/03/21 08:13 MB [id number]) Hip Goniometric Range of Motion Hip ROM Limitations Comments Limited passive right hip extension in supine and PT does not manually assess any hip range post-op. His leg does settle into better extension after lying several minutes PT-OP-M Strength Start: 03/30/21 16:01 Freq: Status: Active Protocol: Document 04/03/21 07:36 MB (Rec: 04/03/21 08:14 MB [id number]) Hip Strength Hip Manual Muscle Testing Right Comments Deferred MMT s/p surgery and pain Left Flexion (L2) 5 Normal Abduction 5 Normal Knee Strength Knee Manual Muscle Testing Right Comments Deferred MMT s/p right hip surgery and pain Left Flexion (S2) 4 Good Extension (L3) 5 Normal Ankle/Foot Strength Ankle and Foot Manual Muscle Testing Bilateral Dorsiflexion (L4) 5 Normal Toe Strength Toe Manual Muscle Testing Left Great Toe Extension 3+ Fair+ Right Great Toe Extension 3+ Fair+ PT-OP-Q Treatments Start: 03/30/21 16:01 Freq: Status: Active Protocol: Document 04/13/21 09:44 MB (Rec: 04/13/21 10:32 MB [id number]) Cardio Equipment Recumbent Elliptical (Biodex) Duration (Minutes) 10 Resistance 4 Seat Position 13 Other UE and LE Therapeutic Exercises Supine Exercises Clam in hook lying Side bilateral Resistance Band around knees, level 1 Comments 10 reps, abdominal drawing in first Abdominal drawing in with pelvic tilt Comments Ed to perform before bridge and hip abduction (clam in hook lying) Bridge Supine Exercise Name Practiced for scooting first and okay Side bilateral Resistance Band around knees, level 1 Comments Abdominal drawing in first, without band, then with, several reps Pelvic Realignment Supine Exercise Name Pelvic realignment exercises Side bilateral Comments 5 reps, 3 sec hold each exercise Stretch Supine Exercise Name Anterior hip stretch Side bilateral Comments 45 sec hold. Hold left leg to chest to stretch the right Gait Training Gait Activity Forward rock and reach Comments Practiced in front of mirror in gym and alternated which foot ahead and which behind, pt has decreased arm swing. Made sure that right foot (hip ) was in neutral when behind and monitored pt complaints with shifting weight and his gait is much better after forward rock and reach exercise, which focused on heel and toe movement and weight shifting PT-OP-R Modalities Start: 04/06/21 13:54 Freq: Status: Active Protocol: Document 04/06/21 12:03 MA (Rec: 04/06/21 14:00 MA [id number]) Hot Pack/Cold Pack Treatment Cold Pack Location Ant. R hip Patient Position Hooklying Treatment Duration (minutes) 15 Patient Tolerance Good PT-OP-T Assessment and Plan Start: 03/30/21 16:01 Freq: Status: Active Protocol: Document 04/13/21 09:44 MB (Rec: 04/13/21 10:32 MB [id number]) Physical Therapy Assessment Rehab Potential Rehabilitation Potential Fair Evaluation Complexity Number of Personal Factors/Comorbidities 1-2 Number of Body Systems Impaired 1-2 Clinical Presentation at Evaluation Evolving Impairments Impairments Activity Tolerance,Balance, Edema,Functional Activities, Functional Mobility,Gait, Integument,Pain,Posture,ROM, Soft Tissue Mobility,Strength, Transfers Other Impairments Pt is reluctant to perform things that cause discomfort and this is a personal factor that might be a barrier to PT. His fills out all his paper work. Body systems affected include musculoskeletal and cardiac. His cardiac presentation is stable to evolving, orthopedic presentation should be stable post-op. Other Concerns Fall Risk Yes Goals 5 Mcc Goal (LTG) Pt will perform progressive HEP with I including balance, flexibility, strengthening and gait exercises to improve overall mobility and I by . 04/13/21: Anterior hip stretch with leg straight, pelvic realignment exercises, abdominal drawing in, bridge with band around knees and clam in hook lying LTG Duration 8 weeks 4 Mcc Goal (LTG) Pt will perform WNLs on a standardized balance test to improve safety by 06/03/21. LTG Duration 8 weeks 3 Mcc Goal (LTG) Pt will gait train at least 1400 feet without AD in 6 minutes to improve community ambulation by 06/03/21. LTG Duration 8 weeks 2 Graphic Engineer Goal (LTG) Pt will present with B hip flexion and abduction and knee flexion and extension strength to 5/5 to improve gait and transfers by 06/03/21. LTG Duration 8 weeks 1 Impairment LEF reflects 83.75% impairment Graphic Engineer Goal (LTG) Pt will present with an improved LEF score to reflect no more than 30% functional impairment by 06/03/21. LTG Duration 8 weeks Assessment Summary Assessment Pt arrives without AD and states that Dr. Flynn agreed that he does not need walker. He is not interested in walking stick or cane. Will con't to attempt improvement in vero without AD in setting of antalgic gait post- op right [id number]. Progressed pre- gait and balance today with forward rock and reach with care to keep right foot in neutral and to weight shift forward onto left foot and monitoring pt's reports of right hip with weight bearing when it is behind. Physical Therapy Plan Frequency and Duration Frequency of Treatment 2x/Week Duration of Treatment 8 weeks Plan of Care Start Date 04/03/21 Plan of Care End Date 06/03/21 Therapeutic Interventions Therapeutic Interventions Balance Training,Canalithic Repositioning,Gait Training, Home Exercise Program,Joint Mobilizations,Manual Therapy, Neuromuscular Re-education, Patient/Caregiver Education, Self-Care/Home Management,Soft Tissue Mobilization,Taping, Therapeutic Activities, Therapeutic Exercises Modalities Cold Pack/Ice Massage,Hot Packs Next Visit Focus/Plan Next Note Type Treatment Note Next Visit Plan Progress gait training, balance exercises and progressive LE strengthening: consider sitting LAQ with band around ankles and ankle eversion and DF with band, progress hip strengthening in standing
--- NOTE | 2021-04-16 10:31 | PT.OTN ---
Current Diagnoses Unilateral primary osteoarthritis, right hip (04/16/21) Physical Therapy Treatment Note PT-OP-A Visit Information Start: 03/30/21 16:01 Freq: Status: Active Protocol: Document 04/16/21 09:49 MB (Rec: 04/16/21 10:31 MB [id number]) Out-Patient Physical Therapy Visit Information Visit Information Visit Type Treatment Note Visit Start Time 09:49 Visit Stop Time 10:30 Total Visit Minutes 41 Visit Number 4 Precautions Precautions Anterior hip precautions right hip, WBAT PT-OP-B Current Condition Start: 03/30/21 16:01 Freq: Status: Active Protocol: Document 04/03/21 07:36 MB (Rec: 04/03/21 07:47 MB [id number]) Current Condition History of Current Condition Onset Date 03/22/21 Current Complaints Right sided lateral leg pain History of Current Condition Pt is s/p right THR on 03/22/21 . PMH includes: CAD, cardiomyopathy, DDD, hearing impaired, HLD, HTN, [place] 2009, pre-diabetes, back and neck fusions, hernia repair. Pt reports up to 7/10 lateral right hip pain. He states there is a lump there. He has not had his first post-op visit and will ask Dr. Flynn about this at the follow-up. Pt is using the rolling walker . He is not using a shower chair though he has one. He has two steps and no railing. 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 Prior Treatments and Tests Multiple surgeries and PT in the past for his neck that went well Treatment Goals Patient/Caregiver Goals To get back in shape PT-OP-C Subjective Start: 03/30/21 16:01 Freq: Status: Active Protocol: Document 04/16/21 09:49 MB (Rec: 04/16/21 10:31 MB [id number]) OP-PT Subjective Patient Comments Patient Comments Pt states that he was doing fine until he tilled his yard over the weekend. He inflammed his hip per his report. PT-OP-G Mobility & Gait Start: 03/30/21 16:01 Freq: Status: Active Protocol: Document 04/03/21 07:36 MB (Rec: 04/03/21 08:11 MB [id number]) OP Gait Assessment Gait Gait Assistance Required: Independent Distance (Feet) 30 Able to Maintain Weight Bearing Status Yes During Gait Assistive Devices Assistive Device None,Front Wheeled Walker Orthotic/Prosthetic Devices or Brace: No Gait Deviations General Gait Pattern Antalgic,Decreased Stride Length,Decreased Feet Clearance,Flexed Trunk,Step-to Gait Factors Limiting Gait Function Factors Limiting Gait Function Decreased Activity Tolerance, Decreased Strength,Limited Range of Motion,Pain Comments Gait Comments Pt arrives gait training with walker too far in front of him . His gait improves with posture and foot clearance and reciprocal gait when he steps closer to the walker. Pt's gait without walker is much slower and more antalgic: decreased step-length and foot clearance, little arm swing on the right and decreased right hip flexion and extension. PT-OP-J Posture/Palpation/Skin Start: 03/30/21 16:01 Freq: Status: Active Protocol: Document 04/03/21 07:36 MB (Rec: 04/03/21 08:11 MB [id number]) Posture Evaluation Comments Posture Comments Posture without AD is poor, flexed and decreased WB through this right LE with increased hip flexion and right LE guarding PT-OP-K Range of Motion Start: 03/30/21 16:01 Freq: Status: Active Protocol: Document 04/03/21 07:36 MB (Rec: 04/03/21 08:13 MB [id number]) Hip Goniometric Range of Motion Hip ROM Limitations Comments Limited passive right hip extension in supine and PT does not manually assess any hip range post-op. His leg does settle into better extension after lying several minutes PT-OP-M Strength Start: 03/30/21 16:01 Freq: Status: Active Protocol: Document 04/03/21 07:36 MB (Rec: 04/03/21 08:14 MB [id number]) Hip Strength Hip Manual Muscle Testing Right Comments Deferred MMT s/p surgery and pain Left Flexion (L2) 5 Normal Abduction 5 Normal Knee Strength Knee Manual Muscle Testing Right Comments Deferred MMT s/p right hip surgery and pain Left Flexion (S2) 4 Good Extension (L3) 5 Normal Ankle/Foot Strength Ankle and Foot Manual Muscle Testing Bilateral Dorsiflexion (L4) 5 Normal Toe Strength Toe Manual Muscle Testing Left Great Toe Extension 3+ Fair+ Right Great Toe Extension 3+ Fair+ PT-OP-Q Treatments Start: 03/30/21 16:01 Freq: Status: Active Protocol: Document 04/16/21 09:49 MB (Rec: 04/16/21 10:31 MB [id number]) Cardio Equipment Bicycle (Upright) Duration (Minutes) 10 Resistance 8 Seat Position 8 Therapeutic Exercises Supine Exercises Hamstring stretch Side bilateral Comments Hands behind leg, AP, opposite leg straight Clam in hook lying Side bilateral Resistance Band around knees, level 1 Comments 10 reps, abdominal drawing in first Abdominal drawing in with pelvic tilt Comments Ed to perform before bridge and hip abduction (clam in hook lying) Bridge Supine Exercise Name Practiced for scooting first and okay Side bilateral Resistance Band around knees, level 1 Comments Abdominal drawing in first, without band, then with, several reps Pelvic Realignment Supine Exercise Name Pelvic realignment exercises Side bilateral Comments 5 reps, 3 sec hold each exercise Sitting Exercises Ankle eversion and DF Side bilateral Comments Band around feet, eversion and DF, perform feet together LAQ with AP with band resistance Side bilateral Comments Level 1 band around ankles, AP end-range x5 and alternating PT-OP-R Modalities Start: 04/06/21 13:54 Freq: Status: Active Protocol: Document 04/06/21 12:03 MA (Rec: 04/06/21 14:00 MA [id number]) Hot Pack/Cold Pack Treatment Cold Pack Location Ant. R hip Patient Position Hooklying Treatment Duration (minutes) 15 Patient Tolerance Good PT-OP-T Assessment and Plan Start: 03/30/21 16:01 Freq: Status: Active Protocol: Document 04/16/21 09:49 MB (Rec: 04/16/21 10:31 MB [id number]) Physical Therapy Assessment Rehab Potential Rehabilitation Potential Fair Evaluation Complexity Number of Personal Factors/Comorbidities 1-2 Number of Body Systems Impaired 1-2 Clinical Presentation at Evaluation Evolving Impairments Impairments Activity Tolerance,Balance, Edema,Functional Activities, Functional Mobility,Gait, Integument,Pain,Posture,ROM, Soft Tissue Mobility,Strength, Transfers Other Impairments Pt is reluctant to perform things that cause discomfort and this is a personal factor that might be a barrier to PT. His fills out all his paper work. Body systems affected include musculoskeletal and cardiac. His cardiac presentation is stable to evolving, orthopedic presentation should be stable post-op. Other Concerns Fall Risk Yes Goals 5 Alf Goal (LTG) Pt will perform progressive HEP with I including balance, flexibility, strengthening and gait exercises to improve overall mobility and I by . 04/13/21: Anterior hip stretch with leg straight, pelvic realignment exercises, abdominal drawing in, bridge with band around knees and clam in hook lying LTG Duration 8 weeks 4 Alf Goal (LTG) Pt will perform WNLs on a standardized balance test to improve safety by 06/03/21. LTG Duration 8 weeks 3 Alf Goal (LTG) Pt will gait train at least 1400 feet without AD in 6 minutes to improve community ambulation by 06/03/21. LTG Duration 8 weeks 2 Alf Goal (LTG) Pt will present with B hip flexion and abduction and knee flexion and extension strength to 5/5 to improve gait and transfers by 06/03/21. LTG Duration 8 weeks 1 Impairment LEF reflects 83.75% impairment Director Instructional Material Goal (LTG) Pt will present with an improved LEF score to reflect no more than 30% functional impairment by 06/03/21. LTG Duration 8 weeks Assessment Summary Assessment Pt reports his right hip is painful after tilling. PT does encourage him to reconsider doing this task but he is not receptive to this. Reviewed his exercises today as he has not been performing and he requires cues for all exercises. Added three more exercises today. Physical Therapy Plan Frequency and Duration Frequency of Treatment 2x/Week Duration of Treatment 8 weeks Plan of Care Start Date 04/03/21 Plan of Care End Date 06/03/21 Therapeutic Interventions Therapeutic Interventions Balance Training,Canalithic Repositioning,Gait Training, Home Exercise Program,Joint Mobilizations,Manual Therapy, Neuromuscular Re-education, Patient/Caregiver Education, Self-Care/Home Management,Soft Tissue Mobilization,Taping, Therapeutic Activities, Therapeutic Exercises Modalities Cold Pack/Ice Massage,Hot Packs Next Visit Focus/Plan Next Note Type Treatment Note Next Visit Plan Progress gait training, balance exercises and progressive LE strengthening in standing, heel raises with multifidi engagement with band at side
--- NOTE | 2021-04-20 10:12 | PT-OP ANOTE ---
Pt no shows to appointment. PT calls and leaves message including next appointment time.
--- NOTE | 2021-04-23 08:56 | PT.OTN ---
Current Diagnoses Unilateral primary osteoarthritis, right hip (04/23/21) Physical Therapy Treatment Note PT-OP-A Visit Information Start: 03/30/21 16:01 Freq: Status: Active Protocol: Document 04/23/21 08:15 MB (Rec: 04/23/21 08:55 MB [id number]) Out-Patient Physical Therapy Visit Information Visit Information Visit Type Treatment Note Visit Start Time 08:15 Visit Stop Time 08:55 Total Visit Minutes 40 Visit Number 5 Precautions Precautions Anterior hip precautions right hip, WBAT PT-OP-B Current Condition Start: 03/30/21 16:01 Freq: Status: Active Protocol: Document 04/03/21 07:36 MB (Rec: 04/03/21 07:47 MB [id number]) Current Condition History of Current Condition Onset Date 03/22/21 Current Complaints Right sided lateral leg pain History of Current Condition Pt is s/p right THR on 03/22/21 . PMH includes: CAD, cardiomyopathy, DDD, hearing impaired, HLD, HTN, [place] 2009, pre-diabetes, back and neck fusions, hernia repair. Pt reports up to 7/10 lateral right hip pain. He states there is a lump there. He has not had his first post-op visit and will ask Dr. Flynn about this at the follow-up. Pt is using the rolling walker . He is not using a shower chair though he has one. He has two steps and no railing. 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 Prior Treatments and Tests Multiple surgeries and PT in the past for his neck that went well Treatment Goals Patient/Caregiver Goals To get back in shape PT-OP-C Subjective Start: 03/30/21 16:01 Freq: Status: Active Protocol: Document 04/23/21 08:15 MB (Rec: 04/23/21 08:55 MB [id number]) OP-PT Subjective Patient Comments Patient Comments Pt states that he has good days and bad days. He was with his daughter on Friday when he missed his appointment. He picked cherries off his valle tree with a ladder. Pt states that he is working on swinging his arms. PT-OP-G Mobility & Gait Start: 03/30/21 16:01 Freq: Status: Active Protocol: Document 04/03/21 07:36 MB (Rec: 04/03/21 08:11 MB [id number]) OP Gait Assessment Gait Gait Assistance Required: Independent Distance (Feet) 30 Able to Maintain Weight Bearing Status Yes During Gait Assistive Devices Assistive Device None,Front Wheeled Walker Orthotic/Prosthetic Devices or Brace: No Gait Deviations General Gait Pattern Antalgic,Decreased Stride Length,Decreased Feet Clearance,Flexed Trunk,Step-to Gait Factors Limiting Gait Function Factors Limiting Gait Function Decreased Activity Tolerance, Decreased Strength,Limited Range of Motion,Pain Comments Gait Comments Pt arrives gait training with walker too far in front of him . His gait improves with posture and foot clearance and reciprocal gait when he steps closer to the walker. Pt's gait without walker is much slower and more antalgic: decreased step-length and foot clearance, little arm swing on the right and decreased right hip flexion and extension. PT-OP-J Posture/Palpation/Skin Start: 03/30/21 16:01 Freq: Status: Active Protocol: Document 04/03/21 07:36 MB (Rec: 04/03/21 08:11 MB [id number]) Posture Evaluation Comments Posture Comments Posture without AD is poor, flexed and decreased WB through this right LE with increased hip flexion and right LE guarding PT-OP-K Range of Motion Start: 03/30/21 16:01 Freq: Status: Active Protocol: Document 04/03/21 07:36 MB (Rec: 04/03/21 08:13 MB [id number]) Hip Goniometric Range of Motion Hip ROM Limitations Comments Limited passive right hip extension in supine and PT does not manually assess any hip range post-op. His leg does settle into better extension after lying several minutes PT-OP-M Strength Start: 03/30/21 16:01 Freq: Status: Active Protocol: Document 04/03/21 07:36 MB (Rec: 04/03/21 08:14 MB [id number]) Hip Strength Hip Manual Muscle Testing Right Comments Deferred MMT s/p surgery and pain Left Flexion (L2) 5 Normal Abduction 5 Normal Knee Strength Knee Manual Muscle Testing Right Comments Deferred MMT s/p right hip surgery and pain Left Flexion (S2) 4 Good Extension (L3) 5 Normal Ankle/Foot Strength Ankle and Foot Manual Muscle Testing Bilateral Dorsiflexion (L4) 5 Normal Toe Strength Toe Manual Muscle Testing Left Great Toe Extension 3+ Fair+ Right Great Toe Extension 3+ Fair+ PT-OP-Q Treatments Start: 03/30/21 16:01 Freq: Status: Active Protocol: Document 04/23/21 08:15 MB (Rec: 04/23/21 08:55 MB [id number]) Cardio Equipment Recumbent Elliptical (Biodex) Duration (Minutes) 10 Resistance 1-4 Seat Position 12 Other UE and LE Therapeutic Exercises Sitting Exercises Sit to stands Comments No UE use and green ball between knees, 6 reps, 5 reps 1 Sitting Exercise Name Clam with glute squeeze first, feet together and band around knees Side bilateral Comments Level 1 band Ankle eversion and DF Side bilateral Comments Band around feet, eversion and DF, perform feet together LAQ with AP with band resistance Side bilateral Comments Level 1 band around ankles, AP end-range x5 and alternating Gait Training Gait Activity Stair training Comments Standard and short steps with two rails and cues to perform reciprocal gait and to use rails. Pt tends to perform step-to gait and not reach for rails Forward rock and reach Comments Pt has trouble with this today , especially adding in the arms and they are rigid. He performs slowly walking Comments Walking with arms swings before and after forward rock and reach: pt's speed improves a little and he con't with a slight whip motion with DF to swing right foot forward with gait. He scuffs his left foot once and this causes him to have increased right hip pain. PT-OP-R Modalities Start: 04/06/21 13:54 Freq: Status: Active Protocol: Document 04/06/21 12:03 MA (Rec: 04/06/21 14:00 MA [id number]) Hot Pack/Cold Pack Treatment Cold Pack Location Ant. R hip Patient Position Hooklying Treatment Duration (minutes) 15 Patient Tolerance Good PT-OP-T Assessment and Plan Start: 03/30/21 16:01 Freq: Status: Active Protocol: Document 04/23/21 08:15 MB (Rec: 04/23/21 08:55 MB [id number]) Physical Therapy Assessment Rehab Potential Rehabilitation Potential Fair Evaluation Complexity Number of Personal Factors/Comorbidities 1-2 Number of Body Systems Impaired 1-2 Clinical Presentation at Evaluation Evolving Impairments Impairments Activity Tolerance,Balance, Edema,Functional Activities, Functional Mobility,Gait, Integument,Pain,Posture,ROM, Soft Tissue Mobility,Strength, Transfers Other Impairments Pt is reluctant to perform things that cause discomfort and this is a personal factor that might be a barrier to PT. His fills out all his paper work. Body systems affected include musculoskeletal and cardiac. His cardiac presentation is stable to evolving, orthopedic presentation should be stable post-op. Other Concerns Fall Risk Yes Assessment Summary Assessment Pt arrives with antalgic gait. He has decreased step-length and foot clearance, slow vero and decreased arm swing. He states that the exercises help but it is unclear how much he is doing them. He is choosing tasks like climbing ladders to pick cherries. This puts him at increased risk for injury. Con 't per progression below. Physical Therapy Plan Frequency and Duration Frequency of Treatment 2x/Week Duration of Treatment 8 weeks Plan of Care Start Date 04/03/21 Plan of Care End Date 06/03/21 Therapeutic Interventions Therapeutic Interventions Balance Training,Canalithic Repositioning,Gait Training, Home Exercise Program,Joint Mobilizations,Manual Therapy, Neuromuscular Re-education, Patient/Caregiver Education, Self-Care/Home Management,Soft Tissue Mobilization,Taping, Therapeutic Activities, Therapeutic Exercises Modalities Cold Pack/Ice Massage,Hot Packs Next Visit Focus/Plan Next Note Type Treatment Note Next Visit Plan Manual assist PNF in side lying, balance exercises and progressive LE strengthening in standing including step ups and down to the side and forward and backwards, heel raises with multifidi engagement with band at side
--- NOTE | 2021-04-25 12:51 | PT.OTN ---
Current Diagnoses Unilateral primary osteoarthritis, right hip (04/25/21) Physical Therapy Treatment Note PT-OP-A Visit Information Start: 03/30/21 16:01 Freq: Status: Active Protocol: Document 04/25/21 12:07 MA (Rec: 04/25/21 12:50 MA [id number]) Out-Patient Physical Therapy Visit Information Visit Information Visit Type Treatment Note Visit Start Time 12:00 Visit Stop Time 12:40 Total Visit Minutes 40 Visit Number 6 Number of STITCH MARKER Visits 1 Precautions Precautions Anterior hip precautions right hip, WBAT PT-OP-B Current Condition Start: 03/30/21 16:01 Freq: Status: Active Protocol: Document 04/03/21 07:36 MB (Rec: 04/03/21 07:47 MB [id number]) Current Condition History of Current Condition Onset Date 03/22/21 Current Complaints Right sided lateral leg pain History of Current Condition Pt is s/p right THR on 03/22/21 . PMH includes: CAD, cardiomyopathy, DDD, hearing impaired, HLD, HTN, [place] 2008, pre-diabetes, back and neck fusions, hernia repair. Pt reports up to 7/10 lateral right hip pain. He states there is a lump there. He has not had his first post-op visit and will ask Dr. Flynn about this at the follow-up. Pt is using the rolling walker . He is not using a shower chair though he has one. He has two steps and no railing. 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 Prior Treatments and Tests Multiple surgeries and PT in the past for his neck that went well Treatment Goals Patient/Caregiver Goals To get back in shape PT-OP-C Subjective Start: 03/30/21 16:01 Freq: Status: Active Protocol: Document 04/25/21 12:07 MA (Rec: 04/25/21 12:50 MA [id number]) OP-PT Subjective Patient Comments Patient Comments Pt states he doesn't have much pain anymore. He saw his dr and the bump on his hip is getting a little smaller but is still there. Dr not concerned. PT-OP-G Mobility & Gait Start: 03/30/21 16:01 Freq: Status: Active Protocol: Document 04/03/21 07:36 MB (Rec: 04/03/21 08:11 MB [id number]) OP Gait Assessment Gait Gait Assistance Required: Independent Distance (Feet) 30 Able to Maintain Weight Bearing Status Yes During Gait Assistive Devices Assistive Device None,Front Wheeled Walker Orthotic/Prosthetic Devices or Brace: No Gait Deviations General Gait Pattern Antalgic,Decreased Stride Length,Decreased Feet Clearance,Flexed Trunk,Step-to Gait Factors Limiting Gait Function Factors Limiting Gait Function Decreased Activity Tolerance, Decreased Strength,Limited Range of Motion,Pain Comments Gait Comments Pt arrives gait training with walker too far in front of him . His gait improves with posture and foot clearance and reciprocal gait when he steps closer to the walker. Pt's gait without walker is much slower and more antalgic: decreased step-length and foot clearance, little arm swing on the right and decreased right hip flexion and extension. PT-OP-J Posture/Palpation/Skin Start: 03/30/21 16:01 Freq: Status: Active Protocol: Document 04/03/21 07:36 MB (Rec: 04/03/21 08:11 MB [id number]) Posture Evaluation Comments Posture Comments Posture without AD is poor, flexed and decreased WB through this right LE with increased hip flexion and right LE guarding PT-OP-K Range of Motion Start: 03/30/21 16:01 Freq: Status: Active Protocol: Document 04/03/21 07:36 MB (Rec: 04/03/21 08:13 MB [id number]) Hip Goniometric Range of Motion Hip ROM Limitations Comments Limited passive right hip extension in supine and PT does not manually assess any hip range post-op. His leg does settle into better extension after lying several minutes PT-OP-M Strength Start: 03/30/21 16:01 Freq: Status: Active Protocol: Document 04/03/21 07:36 MB (Rec: 04/03/21 08:14 MB [id number]) Hip Strength Hip Manual Muscle Testing Right Comments Deferred MMT s/p surgery and pain Left Flexion (L2) 5 Normal Abduction 5 Normal Knee Strength Knee Manual Muscle Testing Right Comments Deferred MMT s/p right hip surgery and pain Left Flexion (S2) 4 Good Extension (L3) 5 Normal Ankle/Foot Strength Ankle and Foot Manual Muscle Testing Bilateral Dorsiflexion (L4) 5 Normal Toe Strength Toe Manual Muscle Testing Left Great Toe Extension 3+ Fair+ Right Great Toe Extension 3+ Fair+ PT-OP-Q Treatments Start: 03/30/21 16:01 Freq: Status: Active Protocol: Document 04/25/21 12:07 MA (Rec: 04/25/21 12:50 MA [id number]) Cardio Equipment Recumbent Elliptical (Biodex) Duration (Minutes) 10 Resistance 4 Seat Position 12 Other UE and LE Therapeutic Exercises Sitting Exercises Sit to stands Reps/Minutes 2x8 Comments No UE use and green ball between knees Ankle eversion and DF Side bilateral Comments Band around feet, eversion and DF, perform feet together LAQ with AP with band resistance Side bilateral Comments Level 1 band around ankles, AP end-range x5 and alternating Standing Exercises Step Ups Standing Exercise Name fwd and lateral Side bilateral Equipment Used 4 step Reps/Minutes x10 ea Gait Training Gait Activity Stair training Comments Standard and short steps with two rails and cues to perform reciprocal gait and to use rails. Pt tends to perform step-to gait and not reach for rails Forward rock and reach Comments Pt has trouble keeping hips straight, had pt perform infront of mirror for self- correction walking Comments Pt has improved arm swings today. Performed after rock and reach. PT-OP-R Modalities Start: 04/06/21 13:54 Freq: Status: Active Protocol: Document 04/06/21 12:03 MA (Rec: 04/06/21 14:00 MA [id number]) Hot Pack/Cold Pack Treatment Cold Pack Location Ant. R hip Patient Position Hooklying Treatment Duration (minutes) 15 Patient Tolerance Good PT-OP-T Assessment and Plan Start: 03/30/21 16:01 Freq: Status: Active Protocol: Document 04/25/21 12:07 MA (Rec: 04/25/21 12:50 MA [id number]) Physical Therapy Assessment Goals 5 [facility] Goal (LTG) Pt will perform progressive HEP with I including balance, flexibility, strengthening and gait exercises to improve overall mobility and I by . 04/13/21: Anterior hip stretch with leg straight, pelvic realignment exercises, abdominal drawing in, bridge with band around knees and clam in hook lying LTG Duration 8 weeks 4 [facility] Goal (LTG) Pt will perform WNLs on a standardized balance test to improve safety by 06/03/21. LTG Duration 8 weeks 3 [facility] Goal (LTG) Pt will gait train at least 1400 feet without AD in 6 minutes to improve community ambulation by 06/03/21. LTG Duration 8 weeks 2 [facility] Goal (LTG) Pt will present with B hip flexion and abduction and knee flexion and extension strength to 5/5 to improve gait and transfers by 06/03/21. LTG Duration 8 weeks 1 Impairment LEF reflects 83.75% impairment [facility] Goal (LTG) Pt will present with an improved LEF score to reflect no more than 30% functional impairment by 06/03/21. LTG Duration 8 weeks Assessment Summary Assessment Pt was able to complete step ups on 4 step fwd and laterally. When attempted on 6 step, pt had 4/10 pain but his pain decreased with 4 step. During rock and reach activity, pt twists torso and hips unless cued. When given mirror for self correction pt does much better keeping hips neutral and improving posture and arm swing. Performed gait after rock and reach with pt showing improved step height, length, and arm swing with good heel strike on RLE. He needs cues for thoracic extension throughout exercises . During stair training, pt was able to step reciprocally today, only losing balance 1x due to pt forgetting to step reciprocally. Physical Therapy Plan Frequency and Duration Frequency of Treatment 2x/Week Duration of Treatment 8 weeks Plan of Care Start Date 04/03/21 Plan of Care End Date 06/03/21 Therapeutic Interventions Therapeutic Interventions Balance Training,Canalithic Repositioning,Gait Training, Home Exercise Program,Joint Mobilizations,Manual Therapy, Neuromuscular Re-education, Patient/Caregiver Education, Self-Care/Home Management,Soft Tissue Mobilization,Taping, Therapeutic Activities, Therapeutic Exercises Modalities Cold Pack/Ice Massage,Hot Packs Next Visit Focus/Plan Next Note Type Treatment Note Next Visit Plan Manual assist PNF in side lying, balance exercises and progressive LE strengthening in standing including step ups and down to the side and forward and backwards, heel raises with multifidi engagement with band at side
--- NOTE | 2021-05-02 14:30 | PT.OTN ---
Current Diagnoses Unilateral primary osteoarthritis, right hip (05/02/21) Physical Therapy Treatment Note PT-OP-A Visit Information Start: 03/30/21 16:01 Freq: Status: Active Protocol: Document 05/02/21 13:45 MB (Rec: 05/02/21 14:29 MB [id number]) Out-Patient Physical Therapy Visit Information Visit Information Visit Type Treatment Note Visit Start Time 13:45 Visit Stop Time 14:30 Total Visit Minutes 45 Visit Number 7 Number of WELFARE INTERVIEWER Visits 0 Precautions Precautions Anterior hip precautions right hip PT-OP-B Current Condition Start: 03/30/21 16:01 Freq: Status: Active Protocol: Document 04/03/21 07:36 MB (Rec: 04/03/21 07:47 MB [id number]) Current Condition History of Current Condition Onset Date 03/22/21 Current Complaints Right sided lateral leg pain History of Current Condition Pt is s/p right THR on 03/22/21 . PMH includes: CAD, cardiomyopathy, DDD, hearing impaired, HLD, HTN, [place] 2009, pre-diabetes, back and neck fusions, hernia repair. Pt reports up to 7/10 lateral right hip pain. He states there is a lump there. He has not had his first post-op visit and will ask Dr. Flynn about this at the follow-up. Pt is using the rolling walker . He is not using a shower chair though he has one. He has two steps and no railing. 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 Prior Treatments and Tests Multiple surgeries and PT in the past for his neck that went well Treatment Goals Patient/Caregiver Goals To get back in shape PT-OP-C Subjective Start: 03/30/21 16:01 Freq: Status: Active Protocol: Document 05/02/21 13:45 MB (Rec: 05/02/21 14:29 MB [id number]) OP-PT Subjective Patient Comments Patient Comments Pt returned to the surgeon. Pt states that he told the surgeon that the PT said his leg is too short (PT did not state this) and that doctor states that his leg is not a different length. He states that she encouraged him to WB through the right leg when he is standing in line. PT-OP-G Mobility & Gait Start: 03/30/21 16:01 Freq: Status: Active Protocol: Document 04/03/21 07:36 MB (Rec: 04/03/21 08:11 MB [id number]) OP Gait Assessment Gait Gait Assistance Required: Independent Distance (Feet) 30 Able to Maintain Weight Bearing Status Yes During Gait Assistive Devices Assistive Device None,Front Wheeled Walker Orthotic/Prosthetic Devices or Brace: No Gait Deviations General Gait Pattern Antalgic,Decreased Stride Length,Decreased Feet Clearance,Flexed Trunk,Step-to Gait Factors Limiting Gait Function Factors Limiting Gait Function Decreased Activity Tolerance, Decreased Strength,Limited Range of Motion,Pain Comments Gait Comments Pt arrives gait training with walker too far in front of him . His gait improves with posture and foot clearance and reciprocal gait when he steps closer to the walker. Pt's gait without walker is much slower and more antalgic: decreased step-length and foot clearance, little arm swing on the right and decreased right hip flexion and extension. PT-OP-J Posture/Palpation/Skin Start: 03/30/21 16:01 Freq: Status: Active Protocol: Document 04/03/21 07:36 MB (Rec: 04/03/21 08:11 MB [id number]) Posture Evaluation Comments Posture Comments Posture without AD is poor, flexed and decreased WB through this right LE with increased hip flexion and right LE guarding PT-OP-K Range of Motion Start: 03/30/21 16:01 Freq: Status: Active Protocol: Document 04/03/21 07:36 MB (Rec: 04/03/21 08:13 MB [id number]) Hip Goniometric Range of Motion Hip ROM Limitations Comments Limited passive right hip extension in supine and PT does not manually assess any hip range post-op. His leg does settle into better extension after lying several minutes PT-OP-M Strength Start: 03/30/21 16:01 Freq: Status: Active Protocol: Document 04/03/21 07:36 MB (Rec: 04/03/21 08:14 MB [id number]) Hip Strength Hip Manual Muscle Testing Right Comments Deferred MMT s/p surgery and pain Left Flexion (L2) 5 Normal Abduction 5 Normal Knee Strength Knee Manual Muscle Testing Right Comments Deferred MMT s/p right hip surgery and pain Left Flexion (S2) 4 Good Extension (L3) 5 Normal Ankle/Foot Strength Ankle and Foot Manual Muscle Testing Bilateral Dorsiflexion (L4) 5 Normal Toe Strength Toe Manual Muscle Testing Left Great Toe Extension 3+ Fair+ Right Great Toe Extension 3+ Fair+ PT-OP-Q Treatments Start: 03/30/21 16:01 Freq: Status: Active Protocol: Document 05/02/21 13:45 MB (Rec: 05/02/21 14:29 MB [id number]) Cardio Equipment Recumbent Elliptical (Biodex) Duration (Minutes) 10 Resistance 5 Seat Position 11 Other UE and LE Therapeutic Exercises Supine Exercises Hamstring stretch Side bilateral Comments Hands behind thigh, AP, 30 sec hold/pump Clam in hook lying Supine Exercise Name Ed pt that can perform this one or sitting one, practiced sitting today Bridge Equipment Used Blue ball between knees Comments 10 small reps and cues to slow down and then perform 1 and hold Pelvic Realignment Side bilateral Equipment Used Blue kids ball between knees for 1st exercise Comments 5 reps, 3 sec hold all exercises Stretch Supine Exercise Name Anterior hip with leg straight Side bilateral Comments 30 sec hold, pt cannot state if helpful for not Sitting Exercises Sit to stands Reps/Minutes 10 reps Comments Blue ball between knees 1 Sitting Exercise Name Clam with feet together Side bilateral Comments Level 1 band around knees, glute squeeze Ankle eversion and DF Side bilateral Comments Level 1 band around feet, 10 reps slowly LAQ with AP with band resistance Side bilateral Comments Alternating, level one band around ankles, 5 reps, AP PT-OP-R Modalities Start: 04/06/21 13:54 Freq: Status: Active Protocol: Document 04/06/21 12:03 MA (Rec: 04/06/21 14:00 MA [id number]) Hot Pack/Cold Pack Treatment Cold Pack Location Ant. R hip Patient Position Hooklying Treatment Duration (minutes) 15 Patient Tolerance Good PT-OP-T Assessment and Plan Start: 03/30/21 16:01 Freq: Status: Active Protocol: Document 05/02/21 13:45 MB (Rec: 05/02/21 14:29 MB [id number]) Physical Therapy Assessment Rehab Potential Rehabilitation Potential Fair Evaluation Complexity Number of Personal Factors/Comorbidities 1-2 Number of Body Systems Impaired 1-2 Clinical Presentation at Evaluation Evolving Impairments Impairments Activity Tolerance,Balance, Edema,Functional Activities, Functional Mobility,Gait, Integument,Pain,Posture,ROM, Soft Tissue Mobility,Strength, Transfers Other Impairments Pt is reluctant to perform things that cause discomfort and this is a personal factor that might be a barrier to PT. His fills out all his paper work. Body systems affected include musculoskeletal and cardiac. His cardiac presentation is stable to evolving, orthopedic presentation should be stable post-op. Other Concerns Fall Risk Yes Goals 5 Residential Goal (LTG) Pt will perform progressive HEP with I including balance, flexibility, strengthening and gait exercises to improve overall mobility and I by . 04/13/21: Anterior hip stretch with leg straight, pelvic realignment exercises, abdominal drawing in, bridge with band around knees and clam in hook lying LTG Duration 8 weeks 4 Residential Goal (LTG) Pt will perform WNLs on a standardized balance test to improve safety by 06/03/21. LTG Duration 8 weeks 3 Club Waiter/Waitress Goal (LTG) Pt will gait train at least 1400 feet without AD in 6 minutes to improve community ambulation by 06/03/21. LTG Duration 8 weeks 2 Club Waiter/Waitress Goal (LTG) Pt will present with B hip flexion and abduction and knee flexion and extension strength to 5/5 to improve gait and transfers by 06/03/21. LTG Duration 8 weeks 1 Impairment LEF reflects 83.75% impairment Residential Goal (LTG) Pt will present with an improved LEF score to reflect no more than 30% functional impairment by 06/03/21. LTG Duration 8 weeks Physical Therapy Plan Frequency and Duration Frequency of Treatment 2x/Week Duration of Treatment 8 weeks Plan of Care Start Date 04/03/21 Plan of Care End Date 06/03/21 Therapeutic Interventions Therapeutic Interventions Balance Training,Canalithic Repositioning,Gait Training, Home Exercise Program,Joint Mobilizations,Manual Therapy, Neuromuscular Re-education, Patient/Caregiver Education, Self-Care/Home Management,Soft Tissue Mobilization,Taping, Therapeutic Activities, Therapeutic Exercises Modalities Cold Pack/Ice Massage,Hot Packs Next Visit Focus/Plan Next Note Type Treatment Note Next Visit Plan Manual assist PNF in side lying, balance exercises and progressive LE strengthening in standing including step ups and down to the side and forward and backwards, heel raises with multifidi engagement with band at side
--- NOTE | 2021-05-04 11:08 | PT.OTN ---
Current Diagnoses Unilateral primary osteoarthritis, right hip (05/04/21) Physical Therapy Treatment Note PT-OP-A Visit Information Start: 03/30/21 16:01 Freq: Status: Active Protocol: Document 05/04/21 09:45 MB (Rec: 05/04/21 09:58 MB [id number]) Out-Patient Physical Therapy Visit Information Visit Information Visit Type Treatment Note Visit Start Time 09:45 Visit Stop Time 10:30 Total Visit Minutes 45 Visit Number 8 Precautions Precautions Anterior hip precautions right hip PT-OP-B Current Condition Start: 03/30/21 16:01 Freq: Status: Active Protocol: Document 04/03/21 07:36 MB (Rec: 04/03/21 07:47 MB [id number]) Current Condition History of Current Condition Onset Date 03/22/21 Current Complaints Right sided lateral leg pain History of Current Condition Pt is s/p right THR on 03/22/21 . PMH includes: CAD, cardiomyopathy, DDD, hearing impaired, HLD, HTN, [place] 2009, pre-diabetes, back and neck fusions, hernia repair. Pt reports up to 7/10 lateral right hip pain. He states there is a lump there. He has not had his first post-op visit and will ask Dr. Flynn about this at the follow-up. Pt is using the rolling walker . He is not using a shower chair though he has one. He has two steps and no railing. 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 Prior Treatments and Tests Multiple surgeries and PT in the past for his neck that went well Treatment Goals Patient/Caregiver Goals To get back in shape PT-OP-C Subjective Start: 03/30/21 16:01 Freq: Status: Active Protocol: Document 05/04/21 09:45 MB (Rec: 05/04/21 09:58 MB [id number]) OP-PT Subjective Patient Comments Patient Comments Pt states that the back of his right leg has been hurting since Friday. He thinks that the sitting ankle exercise might have bothered him. He has an old injury in that ankle when he was pushing into a shovel and thinks he tore a ligament. He never got a work-up for it. Massage in the past for his back wasn't helpful. PT-OP-G Mobility & Gait Start: 03/30/21 16:01 Freq: Status: Active Protocol: Document 04/03/21 07:36 MB (Rec: 04/03/21 08:11 MB [id number]) OP Gait Assessment Gait Gait Assistance Required: Independent Distance (Feet) 30 Able to Maintain Weight Bearing Status Yes During Gait Assistive Devices Assistive Device None,Front Wheeled Walker Orthotic/Prosthetic Devices or Brace: No Gait Deviations General Gait Pattern Antalgic,Decreased Stride Length,Decreased Feet Clearance,Flexed Trunk,Step-to Gait Factors Limiting Gait Function Factors Limiting Gait Function Decreased Activity Tolerance, Decreased Strength,Limited Range of Motion,Pain Comments Gait Comments Pt arrives gait training with walker too far in front of him . His gait improves with posture and foot clearance and reciprocal gait when he steps closer to the walker. Pt's gait without walker is much slower and more antalgic: decreased step-length and foot clearance, little arm swing on the right and decreased right hip flexion and extension. PT-OP-J Posture/Palpation/Skin Start: 03/30/21 16:01 Freq: Status: Active Protocol: Document 04/03/21 07:36 MB (Rec: 04/03/21 08:11 MB [id number]) Posture Evaluation Comments Posture Comments Posture without AD is poor, flexed and decreased WB through this right LE with increased hip flexion and right LE guarding PT-OP-K Range of Motion Start: 03/30/21 16:01 Freq: Status: Active Protocol: Document 04/03/21 07:36 MB (Rec: 04/03/21 08:13 MB [id number]) Hip Goniometric Range of Motion Hip ROM Limitations Comments Limited passive right hip extension in supine and PT does not manually assess any hip range post-op. His leg does settle into better extension after lying several minutes PT-OP-M Strength Start: 03/30/21 16:01 Freq: Status: Active Protocol: Document 04/03/21 07:36 MB (Rec: 04/03/21 08:14 MB [id number]) Hip Strength Hip Manual Muscle Testing Right Comments Deferred MMT s/p surgery and pain Left Flexion (L2) 5 Normal Abduction 5 Normal Knee Strength Knee Manual Muscle Testing Right Comments Deferred MMT s/p right hip surgery and pain Left Flexion (S2) 4 Good Extension (L3) 5 Normal Ankle/Foot Strength Ankle and Foot Manual Muscle Testing Bilateral Dorsiflexion (L4) 5 Normal Toe Strength Toe Manual Muscle Testing Left Great Toe Extension 3+ Fair+ Right Great Toe Extension 3+ Fair+ PT-OP-Q Treatments Start: 03/30/21 16:01 Freq: Status: Active Protocol: Document 05/04/21 09:45 MB (Rec: 05/04/21 09:58 MB [id number]) Cardio Equipment Recumbent Elliptical ([email or web address]) Duration (Minutes) 10 Resistance 5 Seat Position 11 Other UE and LE Gait Training Gait Activity walking Comments Gait training for balance outside: pavement, sidewalk and grass. Superv assist and no LOB. Pt requires CGA for backwards walking on side walk initially and side stepping right and left. Only performed these on stable surface. Gait forward with head turns on grass and no LOB. Pt does con' t to have mild antalgic gait pattern with gait outside. He states that his right calf does not hurt more with gait. Manual Therapy Treatment Other Other Manual Treatments Positional release right medial hamstring at distal attachment and then moving more proximally, right vastus lateralis posterior side, medial gastroc and gastroc soleus attachment near the achilles tendon. A lot of tension in all areas--will monitor pt's response. He does not tolerate manual work on anterior thigh and hip today. PT-OP-R Modalities Start: 04/06/21 13:54 Freq: Status: Active Protocol: Document 04/06/21 12:03 MA (Rec: 04/06/21 14:00 MA [id number]) Hot Pack/Cold Pack Treatment Cold Pack Location Ant. R hip Patient Position Hooklying Treatment Duration (minutes) 15 Patient Tolerance Good PT-OP-T Assessment and Plan Start: 03/30/21 16:01 Freq: Status: Active Protocol: Document 05/04/21 09:45 MB (Rec: 05/04/21 09:58 MB [id number]) Physical Therapy Assessment Rehab Potential Rehabilitation Potential Fair Evaluation Complexity Number of Personal Factors/Comorbidities 1-2 Number of Body Systems Impaired 1-2 Clinical Presentation at Evaluation Evolving Impairments Impairments Activity Tolerance,Balance, Edema,Functional Activities, Functional Mobility,Gait, Integument,Pain,Posture,ROM, Soft Tissue Mobility,Strength, Transfers Other Impairments Pt is reluctant to perform things that cause discomfort and this is a personal factor that might be a barrier to PT. His fills out all his paper work. Body systems affected include musculoskeletal and cardiac. His cardiac presentation is stable to evolving, orthopedic presentation should be stable post-op. Other Concerns Fall Risk Yes Goals 5 Band Splitter Goal (LTG) Pt will perform progressive HEP with I including balance, flexibility, strengthening and gait exercises to improve overall mobility and I by . 04/13/21: Anterior hip stretch with leg straight, pelvic realignment exercises, abdominal drawing in, bridge with band around knees and clam in hook lying LTG Duration 8 weeks 4 Band Splitter Goal (LTG) Pt will perform WNLs on a standardized balance test to improve safety by 06/03/21. LTG Duration 8 weeks 3 Band Splitter Goal (LTG) Pt will gait train at least 1400 feet without AD in 6 minutes to improve community ambulation by 06/03/21. LTG Duration 8 weeks 2 Band Splitter Goal (LTG) Pt will present with B hip flexion and abduction and knee flexion and extension strength to 5/5 to improve gait and transfers by 06/03/21. LTG Duration 8 weeks 1 Impairment LEF reflects 83.75% impairment Band Splitter Goal (LTG) Pt will present with an improved LEF score to reflect no more than 30% functional impairment by 06/03/21. LTG Duration 8 weeks Assessment Summary Assessment Pt states that the back of his right leg is bothering him. He reports the pain is in the lower leg. He has an old injury. He thinks that the ankle eversion and DF exercise in sitting bothered his leg. Ed pt to stop this exercise at this time. Gait outside for balance training goes well today. Pt tolerates manual work. Con't to monitor response. Physical Therapy Plan Frequency and Duration Frequency of Treatment 2x/Week Duration of Treatment 8 weeks Plan of Care Start Date 04/03/21 Plan of Care End Date 06/03/21 Therapeutic Interventions Therapeutic Interventions Balance Training,Canalithic Repositioning,Gait Training, Home Exercise Program,Joint Mobilizations,Manual Therapy, Neuromuscular Re-education, Patient/Caregiver Education, Self-Care/Home Management,Soft Tissue Mobilization,Taping, Therapeutic Activities, Therapeutic Exercises Modalities Cold Pack/Ice Massage,Hot Packs Next Visit Focus/Plan Next Note Type Treatment Note Next Visit Plan Consider manual assist PNF in side lying, balance exercises and progressive LE strengthening in standing including step ups and down to the side and forward and backwards, heel raises with multifidi engagement with band at side
--- NOTE | 2021-05-07 10:36 | PT.OTN ---
Current Diagnoses Unilateral primary osteoarthritis, right hip (05/07/21) Physical Therapy Treatment Note PT-OP-A Visit Information Start: 03/30/21 16:01 Freq: Status: Active Protocol: Document 05/07/21 09:45 MB (Rec: 05/07/21 10:26 MB [id number]) Out-Patient Physical Therapy Visit Information Visit Information Visit Type Treatment Note Visit Start Time 09:45 Visit Stop Time 10:25 Total Visit Minutes 40 Visit Number 9 Precautions Precautions Anterior hip precautions right hip PT-OP-B Current Condition Start: 03/30/21 16:01 Freq: Status: Active Protocol: Document 04/03/21 07:36 MB (Rec: 04/03/21 07:47 MB [id number]) Current Condition History of Current Condition Onset Date 03/22/21 Current Complaints Right sided lateral leg pain History of Current Condition Pt is s/p right THR on 03/22/21 . PMH includes: CAD, cardiomyopathy, DDD, hearing impaired, HLD, HTN, [place] 2009, pre-diabetes, back and neck fusions, hernia repair. Pt reports up to 7/10 lateral right hip pain. He states there is a lump there. He has not had his first post-op visit and will ask Dr. Flynn about this at the follow-up. Pt is using the rolling walker . He is not using a shower chair though he has one. He has two steps and no railing. 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 Prior Treatments and Tests Multiple surgeries and PT in the past for his neck that went well Treatment Goals Patient/Caregiver Goals To get back in shape PT-OP-C Subjective Start: 03/30/21 16:01 Freq: Status: Active Protocol: Document 05/07/21 09:45 MB (Rec: 05/07/21 10:26 MB [id number]) OP-PT Subjective Patient Comments Patient Comments Pt states that the manual treatment on Friday was really helpful. The tightness got better. PT-OP-G Mobility & Gait Start: 03/30/21 16:01 Freq: Status: Active Protocol: Document 04/03/21 07:36 MB (Rec: 04/03/21 08:11 MB [id number]) OP Gait Assessment Gait Gait Assistance Required: Independent Distance (Feet) 30 Able to Maintain Weight Bearing Status Yes During Gait Assistive Devices Assistive Device None,Front Wheeled Walker Orthotic/Prosthetic Devices or Brace: No Gait Deviations General Gait Pattern Antalgic,Decreased Stride Length,Decreased Feet Clearance,Flexed Trunk,Step-to Gait Factors Limiting Gait Function Factors Limiting Gait Function Decreased Activity Tolerance, Decreased Strength,Limited Range of Motion,Pain Comments Gait Comments Pt arrives gait training with walker too far in front of him . His gait improves with posture and foot clearance and reciprocal gait when he steps closer to the walker. Pt's gait without walker is much slower and more antalgic: decreased step-length and foot clearance, little arm swing on the right and decreased right hip flexion and extension. PT-OP-J Posture/Palpation/Skin Start: 03/30/21 16:01 Freq: Status: Active Protocol: Document 04/03/21 07:36 MB (Rec: 04/03/21 08:11 MB [id number]) Posture Evaluation Comments Posture Comments Posture without AD is poor, flexed and decreased WB through this right LE with increased hip flexion and right LE guarding PT-OP-K Range of Motion Start: 03/30/21 16:01 Freq: Status: Active Protocol: Document 04/03/21 07:36 MB (Rec: 04/03/21 08:13 MB [id number]) Hip Goniometric Range of Motion Hip ROM Limitations Comments Limited passive right hip extension in supine and PT does not manually assess any hip range post-op. His leg does settle into better extension after lying several minutes PT-OP-M Strength Start: 03/30/21 16:01 Freq: Status: Active Protocol: Document 04/03/21 07:36 MB (Rec: 04/03/21 08:14 MB [id number]) Hip Strength Hip Manual Muscle Testing Right Comments Deferred MMT s/p surgery and pain Left Flexion (L2) 5 Normal Abduction 5 Normal Knee Strength Knee Manual Muscle Testing Right Comments Deferred MMT s/p right hip surgery and pain Left Flexion (S2) 4 Good Extension (L3) 5 Normal Ankle/Foot Strength Ankle and Foot Manual Muscle Testing Bilateral Dorsiflexion (L4) 5 Normal Toe Strength Toe Manual Muscle Testing Left Great Toe Extension 3+ Fair+ Right Great Toe Extension 3+ Fair+ PT-OP-Q Treatments Start: 03/30/21 16:01 Freq: Status: Active Protocol: Document 05/07/21 09:45 MB (Rec: 05/07/21 10:26 MB [id number]) Cardio Equipment Recumbent Elliptical (MonoSphere) Duration (Minutes) 10 Resistance 5 Seat Position 11 Other UE and LE Manual Therapy Treatment Other Other Manual Treatments PT assesses left LE for comparison today. Positional release B hip flexors and TFL and vastus lateralis, right medial hamstring at distal attachment and then moving more proximally, right vastus lateralis posterior side, medial gastroc and gastroc soleus attachment near the achilles tendon, MWM right distal medial hamstring with PT providing TrP pressure and pt performing active HS PT-OP-R Modalities Start: 04/06/21 13:54 Freq: Status: Active Protocol: Document 04/06/21 12:03 MA (Rec: 04/06/21 14:00 MA [id number]) Hot Pack/Cold Pack Treatment Cold Pack Location Ant. R hip Patient Position Hooklying Treatment Duration (minutes) 15 Patient Tolerance Good PT-OP-T Assessment and Plan Start: 03/30/21 16:01 Freq: Status: Active Protocol: Document 05/07/21 09:45 MB (Rec: 05/07/21 10:26 MB [id number]) Physical Therapy Assessment Rehab Potential Rehabilitation Potential Fair Evaluation Complexity Number of Personal Factors/Comorbidities 1-2 Number of Body Systems Impaired 1-2 Clinical Presentation at Evaluation Evolving Impairments Impairments Activity Tolerance,Balance, Edema,Functional Activities, Functional Mobility,Gait, Integument,Pain,Posture,ROM, Soft Tissue Mobility,Strength, Transfers Other Impairments Pt is reluctant to perform things that cause discomfort and this is a personal factor that might be a barrier to PT. His fills out all his paper work. Body systems affected include musculoskeletal and cardiac. His cardiac presentation is stable to evolving, orthopedic presentation should be stable post-op. Other Concerns Fall Risk Yes Goals 5 Emergency Planner Goal (LTG) Pt will perform progressive HEP with I including balance, flexibility, strengthening and gait exercises to improve overall mobility and I by . 04/13/21: Anterior hip stretch with leg straight, pelvic realignment exercises, abdominal drawing in, bridge with band around knees and clam in hook lying LTG Duration 8 weeks 4 Emergency Planner Goal (LTG) Pt will perform WNLs on a standardized balance test to improve safety by 06/03/21. LTG Duration 8 weeks 3 Emergency Planner Goal (LTG) Pt will gait train at least 1400 feet without AD in 6 minutes to improve community ambulation by 06/03/21. LTG Duration 8 weeks 2 Halfway Goal (LTG) Pt will present with B hip flexion and abduction and knee flexion and extension strength to 5/5 to improve gait and transfers by 06/03/21. LTG Duration 8 weeks 1 Impairment LEF reflects 83.75% impairment Emergency Planner Goal (LTG) Pt will present with an improved LEF score to reflect no more than 30% functional impairment by 06/03/21. LTG Duration 8 weeks Assessment Summary Assessment Pt had a good response to manual work last PT treatment and so performed again today and pt's right LE fascial mobility is improved after treatment as well as his pain. Did work on anterior proximal right LE this date as well. Physical Therapy Plan Frequency and Duration Frequency of Treatment 2x/Week Duration of Treatment 8 weeks Plan of Care Start Date 04/03/21 Plan of Care End Date 06/03/21 Therapeutic Interventions Therapeutic Interventions Balance Training,Canalithic Repositioning,Gait Training, Home Exercise Program,Joint Mobilizations,Manual Therapy, Neuromuscular Re-education, Patient/Caregiver Education, Self-Care/Home Management,Soft Tissue Mobilization,Taping, Therapeutic Activities, Therapeutic Exercises Modalities Cold Pack/Ice Massage,Hot Packs Next Visit Focus/Plan Next Note Type Progress Note Next Visit Plan Ongoing manual work--consider working on QL in side lying. Consider manual assist PNF in side lying, balance exercises and progressive LE strengthening in standing including step ups and down to the side and forward and backwards, heel raises with multifidi engagement with band at side
--- NOTE | 2021-05-10 12:44 | PT.OTN ---
Current Diagnoses Unilateral primary osteoarthritis, right hip (05/10/21) Physical Therapy Treatment Note PT-OP-A Visit Information Start: 03/30/21 16:01 Freq: Status: Active Protocol: Document 05/10/21 09:47 MB (Rec: 05/10/21 10:13 MB [id number]) Out-Patient Physical Therapy Visit Information Visit Information Visit Type Progress Note Visit Start Time 09:47 Visit Stop Time 10:30 Total Visit Minutes 43 Visit Number 10 Precautions Precautions Anterior hip precautions right hip PT-OP-B Current Condition Start: 03/30/21 16:01 Freq: Status: Active Protocol: Document 04/03/21 07:36 MB (Rec: 04/03/21 07:47 MB [id number]) Current Condition History of Current Condition Onset Date 03/22/21 Current Complaints Right sided lateral leg pain History of Current Condition Pt is s/p right THR on 03/22/21 . PMH includes: CAD, cardiomyopathy, DDD, hearing impaired, HLD, HTN, [place] 2009, pre-diabetes, back and neck fusions, hernia repair. Pt reports up to 7/10 lateral right hip pain. He states there is a lump there. He has not had his first post-op visit and will ask Dr. Flynn about this at the follow-up. Pt is using the rolling walker . He is not using a shower chair though he has one. He has two steps and no railing. 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 Prior Treatments and Tests Multiple surgeries and PT in the past for his neck that went well Treatment Goals Patient/Caregiver Goals To get back in shape PT-OP-C Subjective Start: 03/30/21 16:01 Freq: Status: Active Protocol: Document 05/10/21 09:47 MB (Rec: 05/10/21 10:13 MB [id number]) OP-PT Subjective Patient Comments Patient Comments Pt has increased right hip pain after doing a lot of walking yesterday. He did a lot of cleaning up in his shop and then walked at several large stores with his . He was looking for a refridgerator. He states that manual work with PT has been helpful. PT exercises have been helpful. PT-OP-G Mobility & Gait Start: 03/30/21 16:01 Freq: Status: Active Protocol: Document 04/03/21 07:36 MB (Rec: 04/03/21 08:11 MB [id number]) OP Gait Assessment Gait Gait Assistance Required: Independent Distance (Feet) 30 Able to Maintain Weight Bearing Status Yes During Gait Assistive Devices Assistive Device None,Front Wheeled Walker Orthotic/Prosthetic Devices or Brace: No Gait Deviations General Gait Pattern Antalgic,Decreased Stride Length,Decreased Feet Clearance,Flexed Trunk,Step-to Gait Factors Limiting Gait Function Factors Limiting Gait Function Decreased Activity Tolerance, Decreased Strength,Limited Range of Motion,Pain Comments Gait Comments Pt arrives gait training with walker too far in front of him . His gait improves with posture and foot clearance and reciprocal gait when he steps closer to the walker. Pt's gait without walker is much slower and more antalgic: decreased step-length and foot clearance, little arm swing on the right and decreased right hip flexion and extension. PT-OP-J Posture/Palpation/Skin Start: 03/30/21 16:01 Freq: Status: Active Protocol: Document 04/03/21 07:36 MB (Rec: 04/03/21 08:11 MB [id number]) Posture Evaluation Comments Posture Comments Posture without AD is poor, flexed and decreased WB through this right LE with increased hip flexion and right LE guarding PT-OP-K Range of Motion Start: 03/30/21 16:01 Freq: Status: Active Protocol: Document 04/03/21 07:36 MB (Rec: 04/03/21 08:13 MB [id number]) Hip Goniometric Range of Motion Hip ROM Limitations Comments Limited passive right hip extension in supine and PT does not manually assess any hip range post-op. His leg does settle into better extension after lying several minutes PT-OP-M Strength Start: 03/30/21 16:01 Freq: Status: Active Protocol: Document 04/03/21 07:36 MB (Rec: 04/03/21 08:14 MB [id number]) Hip Strength Hip Manual Muscle Testing Right Comments Deferred MMT s/p surgery and pain Left Flexion (L2) 5 Normal Abduction 5 Normal Knee Strength Knee Manual Muscle Testing Right Comments Deferred MMT s/p right hip surgery and pain Left Flexion (S2) 4 Good Extension (L3) 5 Normal Ankle/Foot Strength Ankle and Foot Manual Muscle Testing Bilateral Dorsiflexion (L4) 5 Normal Toe Strength Toe Manual Muscle Testing Left Great Toe Extension 3+ Fair+ Right Great Toe Extension 3+ Fair+ PT-OP-Q Treatments Start: 03/30/21 16:01 Freq: Status: Active Protocol: Document 05/10/21 09:47 MB (Rec: 05/10/21 10:13 MB [id number]) Cardio Equipment Bicycle (Upright) Duration (Minutes) 12 Resistance 12 Seat Position 8 Other UE and LE Therapeutic Exercises Supine Exercises Calf stretch with martial art belt Comments Tried with right leg and pt reports plantar discomfort Sitting Exercises [place] exercise calf and plantar fascia Side bilateral Comments Sitting and bare foot in level 5 band Other Exercises HEP review Comments Verbally reviewed HEP today Gait Training Gait Activity 6MWT Comments See goals for comments today. Pt's gait is antaglic today during treatment. PT-OP-R Modalities Start: 04/06/21 13:54 Freq: Status: Active Protocol: Document 04/06/21 12:03 MA (Rec: 04/06/21 14:00 MA [id number]) Hot Pack/Cold Pack Treatment Cold Pack Location Ant. R hip Patient Position Hooklying Treatment Duration (minutes) 15 Patient Tolerance Good PT-OP-T Assessment and Plan Start: 03/30/21 16:01 Freq: Status: Active Protocol: Document 05/10/21 09:47 MB (Rec: 05/10/21 10:13 MB [id number]) Physical Therapy Assessment Rehab Potential Rehabilitation Potential Fair Evaluation Complexity Number of Personal Factors/Comorbidities 1-2 Number of Body Systems Impaired 1-2 Clinical Presentation at Evaluation Evolving Impairments Impairments Activity Tolerance,Balance, Edema,Functional Activities, Functional Mobility,Gait, Integument,Pain,Posture,ROM, Soft Tissue Mobility,Strength, Transfers Other Impairments Pt is reluctant to perform things that cause discomfort and this is a personal factor that might be a barrier to PT. His fills out all his paper work. Body systems affected include musculoskeletal and cardiac. His cardiac presentation is stable to evolving, orthopedic presentation should be stable post-op. Other Concerns Fall Risk Yes Goals 5 Usp Goal (LTG) Pt will perform progressive HEP with I including balance, flexibility, strengthening and gait exercises to improve overall mobility and I by 07/11. 05/10/21: Anterior hip stretch with leg straight, pelvic realignment exercises, abdominal drawing in, bridge with band around knees and clam in hook lying, sitting LAQ, ankle eversion and DF and clam in sitting with band LTG Duration 8 weeks 4 Usp Goal (LTG) Pt will perform WNLs on a standardized balance test to improve safety by 07/11/21. 05/10/21: Deferred testing d/t hip pain after 6MWT LTG Duration 8 weeks 3 Usp Goal (LTG) Pt will gait train at least 1400 feet without AD in 6 minutes to improve community ambulation by 07/11/21. 05/10/21: Pt gait trains 1304 feet in 6 minutes with antalgic gait, favoring the right LE with decreased equal step-length and foot clearance . Pt reports 4/10 pain in right hip. LTG Duration 8 weeks 2 Patrol Inspector Goal (LTG) Pt will present with B hip flexion and abduction and knee flexion and extension strength to 5/5 to improve gait and transfers by 07/11/21. 05/10/21: Deferred MMT today d/ t increased right hip pain before and during treatment LTG Duration 8 weeks 1 Impairment LEF reflects 83.75% impairment on eval Patrol Inspector Goal (LTG) Pt will present with an improved LEF score to reflect no more than 30% functional impairment by 07/11/21. 05/10/21: LEF score reflects 41 .25% impairment LTG Duration 8 weeks Assessment Summary Assessment Pt arrives to PT sore today. This limits some PT progress note tasks such as balance testing and MMT. He states that he did too much walking yesterday. Progressed to upright bike and reviewed exercises and performed 6MWT today. He is progressing towards goals since starting PT and these include gait, LEF score and performance of HEP. He will benefit from ongoing PT to improve gait, balance and strength. Pt does con't to state that he is doing too much at home and this is a barrier to progress. Physical Therapy Plan Frequency and Duration Frequency of Treatment 2x/Week Duration of Treatment 8 weeks Plan of Care Start Date 05/10/21 Plan of Care End Date 07/11/21 Therapeutic Interventions Therapeutic Interventions Balance Training,Canalithic Repositioning,Gait Training, Home Exercise Program,Joint Mobilizations,Manual Therapy, Neuromuscular Re-education, Patient/Caregiver Education, Self-Care/Home Management,Soft Tissue Mobilization,Taping, Therapeutic Activities, Therapeutic Exercises Modalities Cold Pack/Ice Massage,Hot Packs Next Visit Focus/Plan Next Note Type Treatment Note Next Visit Plan Standing calf stretch. Ongoing manual work--consider working on QL in side lying. Consider manual assist PNF in side lying, balance exercises and progressive LE strengthening in standing including step ups and down to the side and forward and backwards, heel raises with multifidi engagement with band at side
--- NOTE | 2021-05-10 12:45 | PT.OPPOC ---
Physical, Occupational & Speech Therapy At [facility] Current Diagnoses Unilateral primary osteoarthritis, right hip (05/10/21) Visit Care Team Role Provider Type Mamta Londono MD Primary Care Provider Physician Specialty: Family Practice Address: [address] [place] [address], [place], [address] Email: [email or web address] Flynn MD Attending Provider Physician Referring Provider Specialty: Orthopedic Surgery Address: [address] [place] [address], [id number] Email: [email or web address] Plan Of Care PT-OP-T Assessment and Plan Start: 03/30/21 16:01 Freq: Status: Active Protocol: Document 05/10/21 09:47 MB (Rec: 05/10/21 10:13 MB [id number]) Physical Therapy Assessment Rehab Potential Rehabilitation Potential Fair Evaluation Complexity Number of Personal Factors/Comorbidities 1-2 Number of Body Systems Impaired 1-2 Clinical Presentation at Evaluation Evolving Impairments Impairments Activity Tolerance,Balance, Edema,Functional Activities, Functional Mobility,Gait, Integument,Pain,Posture,ROM, Soft Tissue Mobility,Strength, Transfers Other Impairments Pt is reluctant to perform things that cause discomfort and this is a personal factor that might be a barrier to PT. His fills out all his paper work. Body systems affected include musculoskeletal and cardiac. His cardiac presentation is stable to evolving, orthopedic presentation should be stable post-op. Other Concerns Fall Risk Yes Goals 5 Care Home Goal (LTG) Pt will perform progressive HEP with I including balance, flexibility, strengthening and gait exercises to improve overall mobility and I by 07/11. 05/10/21: Anterior hip stretch with leg straight, pelvic realignment exercises, abdominal drawing in, bridge with band around knees and clam in hook lying, sitting LAQ, ankle eversion and DF and clam in sitting with band LTG Duration 8 weeks 4 Nurse Companion Goal (LTG) Pt will perform WNLs on a standardized balance test to improve safety by 07/11/21. 05/10/21: Deferred testing d/t hip pain after 6MWT LTG Duration 8 weeks 3 Nurse Companion Goal (LTG) Pt will gait train at least 1400 feet without AD in 6 minutes to improve community ambulation by 07/11/21. 05/10/21: Pt gait trains 1304 feet in 6 minutes with antalgic gait, favoring the right LE with decreased equal step-length and foot clearance . Pt reports 4/10 pain in right hip. LTG Duration 8 weeks 2 Nurse Companion Goal (LTG) Pt will present with B hip flexion and abduction and knee flexion and extension strength to 5/5 to improve gait and transfers by 07/11/21. 05/10/21: Deferred MMT today d/ t increased right hip pain before and during treatment LTG Duration 8 weeks 1 Impairment LEF reflects 83.75% impairment on eval Nurse Companion Goal (LTG) Pt will present with an improved LEF score to reflect no more than 30% functional impairment by 07/11/21. 05/10/21: LEF score reflects 41 .25% impairment LTG Duration 8 weeks Assessment Summary Assessment Pt arrives to PT sore today. This limits some PT progress note tasks such as balance testing and MMT. He states that he did too much walking yesterday. Progressed to upright bike and reviewed exercises and performed 6MWT today. He is progressing towards goals since starting PT and these include gait, LEF score and performance of HEP. He will benefit from ongoing PT to improve gait, balance and strength. Pt does con't to state that he is doing too much at home and this is a barrier to progress. Physical Therapy Plan Frequency and Duration Frequency of Treatment 2x/Week Duration of Treatment 8 weeks Plan of Care Start Date 05/10/21 Plan of Care End Date 07/11/21 Therapeutic Interventions Therapeutic Interventions Balance Training,Canalithic Repositioning,Gait Training, Home Exercise Program,Joint Mobilizations,Manual Therapy, Neuromuscular Re-education, Patient/Caregiver Education, Self-Care/Home Management,Soft Tissue Mobilization,Taping, Therapeutic Activities, Therapeutic Exercises Modalities Cold Pack/Ice Massage,Hot Packs Next Visit Focus/Plan Next Note Type Treatment Note Next Visit Plan Standing calf stretch. Ongoing manual work--consider working on QL in side lying. Consider manual assist PNF in side lying, balance exercises and progressive LE strengthening in standing including step ups and down to the side and forward and backwards, heel raises with multifidi engagement with band at side Plan of Care Dates Plan of Care Start Date 05/10/21 Plan of Care End Date 07/11/21 Electronically Signed by: Ria Lewis, PT 05/10/21 [id number] Please Sign and Return: I have reviewed this Plan of Care and certify that the skilled therapy services above are required to meet the patient?s needs. Physician Signature Date Printed Name and Credentials Clinical Instructor Signature Printed Name and Credentials
--- NOTE | 2021-05-15 10:30 | PT.OTN ---
Current Diagnoses Unilateral primary osteoarthritis, right hip (05/15/21) Physical Therapy Treatment Note PT-OP-A Visit Information Start: 03/30/21 16:01 Freq: Status: Active Protocol: Document 05/15/21 09:51 MB (Rec: 05/15/21 10:27 MB [id number]) Out-Patient Physical Therapy Visit Information Visit Information Visit Type Treatment Note Visit Start Time 09:51 Visit Stop Time 10:30 Total Visit Minutes 39 Visit Number 11 Precautions Precautions Anterior hip precautions right hip PT-OP-B Current Condition Start: 03/30/21 16:01 Freq: Status: Active Protocol: Document 04/03/21 07:36 MB (Rec: 04/03/21 07:47 MB [id number]) Current Condition History of Current Condition Onset Date 03/22/21 Current Complaints Right sided lateral leg pain History of Current Condition Pt is s/p right THR on 03/22/21 . PMH includes: CAD, cardiomyopathy, DDD, hearing impaired, HLD, HTN, [place] 2009, pre-diabetes, back and neck fusions, hernia repair. Pt reports up to 7/10 lateral right hip pain. He states there is a lump there. He has not had his first post-op visit and will ask Dr. Flynn about this at the follow-up. Pt is using the rolling walker . He is not using a shower chair though he has one. He has two steps and no railing. 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 Prior Treatments and Tests Multiple surgeries and PT in the past for his neck that went well Treatment Goals Patient/Caregiver Goals To get back in shape PT-OP-C Subjective Start: 03/30/21 16:01 Freq: Status: Active Protocol: Document 05/15/21 09:51 MB (Rec: 05/15/21 10:27 MB [id number]) OP-PT Subjective Patient Comments Patient Comments Pt states that the new band exercise is one of the most helpful things he has been given. PT-OP-G Mobility & Gait Start: 03/30/21 16:01 Freq: Status: Active Protocol: Document 04/03/21 07:36 MB (Rec: 04/03/21 08:11 MB [id number]) OP Gait Assessment Gait Gait Assistance Required: Independent Distance (Feet) 30 Able to Maintain Weight Bearing Status Yes During Gait Assistive Devices Assistive Device None,Front Wheeled Walker Orthotic/Prosthetic Devices or Brace: No Gait Deviations General Gait Pattern Antalgic,Decreased Stride Length,Decreased Feet Clearance,Flexed Trunk,Step-to Gait Factors Limiting Gait Function Factors Limiting Gait Function Decreased Activity Tolerance, Decreased Strength,Limited Range of Motion,Pain Comments Gait Comments Pt arrives gait training with walker too far in front of him . His gait improves with posture and foot clearance and reciprocal gait when he steps closer to the walker. Pt's gait without walker is much slower and more antalgic: decreased step-length and foot clearance, little arm swing on the right and decreased right hip flexion and extension. PT-OP-J Posture/Palpation/Skin Start: 03/30/21 16:01 Freq: Status: Active Protocol: Document 04/03/21 07:36 MB (Rec: 04/03/21 08:11 MB [id number]) Posture Evaluation Comments Posture Comments Posture without AD is poor, flexed and decreased WB through this right LE with increased hip flexion and right LE guarding PT-OP-K Range of Motion Start: 03/30/21 16:01 Freq: Status: Active Protocol: Document 04/03/21 07:36 MB (Rec: 04/03/21 08:13 MB [id number]) Hip Goniometric Range of Motion Hip ROM Limitations Comments Limited passive right hip extension in supine and PT does not manually assess any hip range post-op. His leg does settle into better extension after lying several minutes PT-OP-M Strength Start: 03/30/21 16:01 Freq: Status: Active Protocol: Document 04/03/21 07:36 MB (Rec: 04/03/21 08:14 MB [id number]) Hip Strength Hip Manual Muscle Testing Right Comments Deferred MMT s/p surgery and pain Left Flexion (L2) 5 Normal Abduction 5 Normal Knee Strength Knee Manual Muscle Testing Right Comments Deferred MMT s/p right hip surgery and pain Left Flexion (S2) 4 Good Extension (L3) 5 Normal Ankle/Foot Strength Ankle and Foot Manual Muscle Testing Bilateral Dorsiflexion (L4) 5 Normal Toe Strength Toe Manual Muscle Testing Left Great Toe Extension 3+ Fair+ Right Great Toe Extension 3+ Fair+ PT-OP-Q Treatments Start: 03/30/21 16:01 Freq: Status: Active Protocol: Document 05/15/21 09:51 MB (Rec: 05/15/21 10:27 MB [id number]) Cardio Equipment Recumbent Elliptical (Hands) Duration (Minutes) 10 Resistance 5 Seat Position 11 Other UE and LE Manual Therapy Treatment Other Other Manual Treatments Pt supine: STM right proximal iliopsoas, adductors all sides . MWM right vastus lateralis and rectus femoris with PT performing TrP pressure and pt performing active HS. Contract relax right hip with hip in flexion and working into ER with passive knee bent --pt fredy into IR. He has a hard time relaxing leg and so this is challenging PT-OP-R Modalities Start: 04/06/21 13:54 Freq: Status: Active Protocol: Document 04/06/21 12:03 MA (Rec: 04/06/21 14:00 MA [id number]) Hot Pack/Cold Pack Treatment Cold Pack Location Ant. R hip Patient Position Hooklying Treatment Duration (minutes) 15 Patient Tolerance Good PT-OP-T Assessment and Plan Start: 03/30/21 16:01 Freq: Status: Active Protocol: Document 05/15/21 09:51 MB (Rec: 05/15/21 10:27 MB [id number]) Physical Therapy Assessment Rehab Potential Rehabilitation Potential Good Evaluation Complexity Number of Personal Factors/Comorbidities 1-2 Number of Body Systems Impaired 1-2 Clinical Presentation at Evaluation Stable Impairments Impairments Activity Tolerance,Balance, Edema,Functional Activities, Functional Mobility,Gait, Integument,Pain,Posture,ROM, Soft Tissue Mobility,Strength, Transfers Other Concerns Fall Risk Yes Goals 5 [employer] Goal (LTG) Pt will perform progressive HEP with I including balance, flexibility, strengthening and gait exercises to improve overall mobility and I by 07/11. 05/10/21: Anterior hip stretch with leg straight, pelvic realignment exercises, abdominal drawing in, bridge with band around knees and clam in hook lying, sitting LAQ, ankle eversion and DF and clam in sitting with band LTG Duration 8 weeks 4 [employer] Goal (LTG) Pt will perform WNLs on a standardized balance test to improve safety by 07/11/21. 05/10/21: Deferred testing d/t hip pain after 6MWT LTG Duration 8 weeks 3 [facility] Goal (LTG) Pt will gait train at least 1400 feet without AD in 6 minutes to improve community ambulation by 07/11/21. 05/10/21: Pt gait trains 1304 feet in 6 minutes with antalgic gait, favoring the right LE with decreased equal step-length and foot clearance . Pt reports 4/10 pain in right hip. LTG Duration 8 weeks 2 [employer] Goal (LTG) Pt will present with B hip flexion and abduction and knee flexion and extension strength to 5/5 to improve gait and transfers by 07/11/21. 05/10/21: Deferred MMT today d/ t increased right hip pain before and during treatment LTG Duration 8 weeks 1 Impairment LEF reflects 83.75% impairment on eval [employer] Goal (LTG) Pt will present with an improved LEF score to reflect no more than 30% functional impairment by 07/11/21. 05/10/21: LEF score reflects 41 .25% impairment LTG Duration 8 weeks Assessment Summary Assessment Manual work today is helpful for pt's fascial tension and pain. Con't exercise progression per below plan, ongoing manual work. Physical Therapy Plan Frequency and Duration Frequency of Treatment 2x/Week Duration of Treatment 8 weeks Plan of Care Start Date 05/10/21 Plan of Care End Date 07/11/21 Therapeutic Interventions Therapeutic Interventions Balance Training,Canalithic Repositioning,Gait Training, Home Exercise Program,Joint Mobilizations,Manual Therapy, Neuromuscular Re-education, Patient/Caregiver Education, Self-Care/Home Management,Soft Tissue Mobilization,Taping, Therapeutic Activities, Therapeutic Exercises Modalities Cold Pack/Ice Massage,Hot Packs Next Visit Focus/Plan Next Note Type Treatment Note Next Visit Plan Standing calf stretch. Consider further contract relax for hip ROM. Ongoing manual work--consider working on QL in side lying. Consider manual assist PNF in side lying, balance exercises and progressive LE strengthening in standing including step ups and down to the side and forward and backwards, heel raises with multifidi engagement with band at side
--- NOTE | 2021-05-18 10:32 | PT.OTN ---
Current Diagnoses Unilateral primary osteoarthritis, right hip (05/18/21) Physical Therapy Treatment Note PT-OP-A Visit Information Start: 03/30/21 16:01 Freq: Status: Active Protocol: Document 05/18/21 09:46 MB (Rec: 05/18/21 10:31 MB [id number]) Out-Patient Physical Therapy Visit Information Visit Information Visit Type Aquatic Treatment Note Visit Note 10/19 visits allowed Visit Start Time 09:46 Visit Stop Time 10:30 Total Visit Minutes 44 Visit Number 12 Precautions Precautions Anterior hip precautions right hip PT-OP-B Current Condition Start: 03/30/21 16:01 Freq: Status: Active Protocol: Document 04/03/21 07:36 MB (Rec: 04/03/21 07:47 MB [id number]) Current Condition History of Current Condition Onset Date 03/22/21 Current Complaints Right sided lateral leg pain History of Current Condition Pt is s/p right THR on 03/22/21 . PMH includes: CAD, cardiomyopathy, DDD, hearing impaired, HLD, HTN, [place] 2008, pre-diabetes, back and neck fusions, hernia repair. Pt reports up to 7/10 lateral right hip pain. He states there is a lump there. He has not had his first post-op visit and will ask Dr. Flynn about this at the follow-up. Pt is using the rolling walker . He is not using a shower chair though he has one. He has two steps and no railing. 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 Prior Treatments and Tests Multiple surgeries and PT in the past for his neck that went well Treatment Goals Patient/Caregiver Goals To get back in shape PT-OP-C Subjective Start: 03/30/21 16:01 Freq: Status: Active Protocol: Document 05/18/21 09:46 MB (Rec: 05/18/21 10:31 MB [id number]) OP-PT Subjective Patient Comments Patient Comments Pt reports that he overdid it again and he is limping today. PT-OP-G Mobility & Gait Start: 03/30/21 16:01 Freq: Status: Active Protocol: Document 04/03/21 07:36 MB (Rec: 04/03/21 08:11 MB [id number]) OP Gait Assessment Gait Gait Assistance Required: Independent Distance (Feet) 30 Able to Maintain Weight Bearing Status Yes During Gait Assistive Devices Assistive Device None,Front Wheeled Walker Orthotic/Prosthetic Devices or Brace: No Gait Deviations General Gait Pattern Antalgic,Decreased Stride Length,Decreased Feet Clearance,Flexed Trunk,Step-to Gait Factors Limiting Gait Function Factors Limiting Gait Function Decreased Activity Tolerance, Decreased Strength,Limited Range of Motion,Pain Comments Gait Comments Pt arrives gait training with walker too far in front of him . His gait improves with posture and foot clearance and reciprocal gait when he steps closer to the walker. Pt's gait without walker is much slower and more antalgic: decreased step-length and foot clearance, little arm swing on the right and decreased right hip flexion and extension. PT-OP-J Posture/Palpation/Skin Start: 03/30/21 16:01 Freq: Status: Active Protocol: Document 04/03/21 07:36 MB (Rec: 04/03/21 08:11 MB [id number]) Posture Evaluation Comments Posture Comments Posture without AD is poor, flexed and decreased WB through this right LE with increased hip flexion and right LE guarding PT-OP-K Range of Motion Start: 03/30/21 16:01 Freq: Status: Active Protocol: Document 04/03/21 07:36 MB (Rec: 04/03/21 08:13 MB [id number]) Hip Goniometric Range of Motion Hip ROM Limitations Comments Limited passive right hip extension in supine and PT does not manually assess any hip range post-op. His leg does settle into better extension after lying several minutes PT-OP-M Strength Start: 03/30/21 16:01 Freq: Status: Active Protocol: Document 04/03/21 07:36 MB (Rec: 04/03/21 08:14 MB [id number]) Hip Strength Hip Manual Muscle Testing Right Comments Deferred MMT s/p surgery and pain Left Flexion (L2) 5 Normal Abduction 5 Normal Knee Strength Knee Manual Muscle Testing Right Comments Deferred MMT s/p right hip surgery and pain Left Flexion (S2) 4 Good Extension (L3) 5 Normal Ankle/Foot Strength Ankle and Foot Manual Muscle Testing Bilateral Dorsiflexion (L4) 5 Normal Toe Strength Toe Manual Muscle Testing Left Great Toe Extension 3+ Fair+ Right Great Toe Extension 3+ Fair+ PT-OP-Q Treatments Start: 03/30/21 16:01 Freq: Status: Active Protocol: Document 05/18/21 09:46 MB (Rec: 05/18/21 10:31 MB [id number]) Cardio Equipment Recumbent Elliptical (Biodex) Duration (Minutes) 10 Resistance 6 Seat Position 11 Other UE and LE Therapeutic Exercises Sidelying Exercises QL stretch Side bilateral Comments Provided handout for home and cued to breathe Standing Exercises Gastroc and soleus stretches, toe raises Side bilateral Comments 30 sec hold each stretch each leg and toe raises Manual Therapy Treatment Other Other Manual Treatments Pt side lying: B (more work on the right) STM QL, lumbar paraspinals, hip rotators and recoil with pt performing coordinated breathing with PT performing work on QL and paraspinals. STM right vastus lateralis anterior and posterior portions and lateral abdominals on the right PT-OP-R Modalities Start: 04/06/21 13:54 Freq: Status: Active Protocol: Document 04/06/21 12:03 MA (Rec: 04/06/21 14:00 MA [id number]) Hot Pack/Cold Pack Treatment Cold Pack Location Ant. R hip Patient Position Hooklying Treatment Duration (minutes) 15 Patient Tolerance Good PT-OP-T Assessment and Plan Start: 03/30/21 16:01 Freq: Status: Active Protocol: Document 05/18/21 09:46 MB (Rec: 05/18/21 10:31 MB [id number]) Physical Therapy Assessment Rehab Potential Rehabilitation Potential Good Evaluation Complexity Number of Personal Factors/Comorbidities 1-2 Number of Body Systems Impaired 1-2 Clinical Presentation at Evaluation Stable Impairments Impairments Activity Tolerance,Balance, Edema,Functional Activities, Functional Mobility,Gait, Integument,Pain,Posture,ROM, Soft Tissue Mobility,Strength, Transfers Other Concerns Fall Risk Yes 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 05/10/21: Anterior hip stretch with leg straight, pelvic realignment exercises, abdominal drawing in, bridge with band around knees and clam in hook lying, sitting LAQ, ankle eversion and DF and clam in sitting with band LTG Duration 8 weeks 4 [facility] Goal (LTG) Pt will perform WNLs on a standardized balance test to improve safety by 07/11/21. 05/10/21: Deferred testing d/t hip pain after 6MWT LTG Duration 8 weeks 3 [facility] Goal (LTG) Pt will gait train at least 1400 feet without AD in 6 minutes to improve community ambulation by 07/11/21. 05/10/21: Pt gait trains 1304 feet in 6 minutes with antalgic gait, favoring the right LE with decreased equal step-length and foot clearance . Pt reports 4/10 pain in right hip. LTG Duration 8 weeks 2 [facility] Goal (LTG) Pt will present with B hip flexion and abduction and knee flexion and extension strength to 5/5 to improve gait and transfers by 07/11/21. 05/10/21: Deferred MMT today d/ t increased right hip pain before and during treatment LTG Duration 8 weeks 1 Impairment LEF reflects 83.75% impairment on eval [facility] Goal (LTG) Pt will present with an improved LEF score to reflect no more than 30% functional impairment by 07/11/21. 05/10/21: LEF score reflects 41 .25% impairment LTG Duration 8 weeks Assessment Summary Assessment Pt presents with a lot of tension in right QL and abdominals today. He is tender to touch and so worked on this today. Encouraged pt to keep stretching at home. Physical Therapy Plan Frequency and Duration Frequency of Treatment 2x/Week Duration of Treatment 8 weeks Plan of Care Start Date 05/10/21 Plan of Care End Date 07/11/21 Therapeutic Interventions Therapeutic Interventions Balance Training,Canalithic Repositioning,Gait Training, Home Exercise Program,Joint Mobilizations,Manual Therapy, Neuromuscular Re-education, Patient/Caregiver Education, Self-Care/Home Management,Soft Tissue Mobilization,Taping, Therapeutic Activities, Therapeutic Exercises Modalities Cold Pack/Ice Massage,Hot Packs Next Visit Focus/Plan Next Note Type Treatment Note Next Visit Plan More sidelying work on QL Run balance test like FGA Consider manual assist PNF in side lying, balance exercises and progressive LE strengthening in standing including step ups and down to the side and forward and backwards, heel raises with multifidi engagement with band at side
--- NOTE | 2021-05-25 12:18 | PT.OTN ---
Current Diagnoses Unilateral primary osteoarthritis, right hip (05/25/21) Physical Therapy Treatment Note PT-OP-A Visit Information Start: 03/30/21 16:01 Freq: Status: Active Protocol: Document 05/25/21 09:47 MB (Rec: 05/25/21 10:33 MB [id number]) Out-Patient Physical Therapy Visit Information Visit Information Visit Type Treatment Note Visit Note visits allowed Visit Start Time 09:47 Visit Stop Time 10:30 Total Visit Minutes 43 Visit Number 13 Precautions Precautions Anterior hip precautions right hip PT-OP-B Current Condition Start: 03/30/21 16:01 Freq: Status: Active Protocol: Document 04/03/21 07:36 MB (Rec: 04/03/21 07:47 MB [id number]) Current Condition History of Current Condition Onset Date 03/22/21 Current Complaints Right sided lateral leg pain History of Current Condition Pt is s/p right THR on 03/22/21 . PMH includes: CAD, cardiomyopathy, DDD, hearing impaired, HLD, HTN, [place] 2009, pre-diabetes, back and neck fusions, hernia repair. Pt reports up to 7/10 lateral right hip pain. He states there is a lump there. He has not had his first post-op visit and will ask Dr. Flynn about this at the follow-up. Pt is using the rolling walker . He is not using a shower chair though he has one. He has two steps and no railing. 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 Prior Treatments and Tests Multiple surgeries and PT in the past for his neck that went well Treatment Goals Patient/Caregiver Goals To get back in shape PT-OP-C Subjective Start: 03/30/21 16:01 Freq: Status: Active Protocol: Document 05/25/21 09:47 MB (Rec: 05/25/21 10:33 MB [id number]) OP-PT Subjective Patient Comments Patient Comments Pt states that he has been dragging a hose this morning to water his peach trees. PT-OP-G Mobility & Gait Start: 03/30/21 16:01 Freq: Status: Active Protocol: Document 04/03/21 07:36 MB (Rec: 04/03/21 08:11 MB [id number]) OP Gait Assessment Gait Gait Assistance Required: Independent Distance (Feet) 30 Able to Maintain Weight Bearing Status Yes During Gait Assistive Devices Assistive Device None,Front Wheeled Walker Orthotic/Prosthetic Devices or Brace: No Gait Deviations General Gait Pattern Antalgic,Decreased Stride Length,Decreased Feet Clearance,Flexed Trunk,Step-to Gait Factors Limiting Gait Function Factors Limiting Gait Function Decreased Activity Tolerance, Decreased Strength,Limited Range of Motion,Pain Comments Gait Comments Pt arrives gait training with walker too far in front of him . His gait improves with posture and foot clearance and reciprocal gait when he steps closer to the walker. Pt's gait without walker is much slower and more antalgic: decreased step-length and foot clearance, little arm swing on the right and decreased right hip flexion and extension. PT-OP-J Posture/Palpation/Skin Start: 03/30/21 16:01 Freq: Status: Active Protocol: Document 04/03/21 07:36 MB (Rec: 04/03/21 08:11 MB [id number]) Posture Evaluation Comments Posture Comments Posture without AD is poor, flexed and decreased WB through this right LE with increased hip flexion and right LE guarding PT-OP-K Range of Motion Start: 03/30/21 16:01 Freq: Status: Active Protocol: Document 04/03/21 07:36 MB (Rec: 04/03/21 08:13 MB [id number]) Hip Goniometric Range of Motion Hip ROM Limitations Comments Limited passive right hip extension in supine and PT does not manually assess any hip range post-op. His leg does settle into better extension after lying several minutes PT-OP-M Strength Start: 03/30/21 16:01 Freq: Status: Active Protocol: Document 04/03/21 07:36 MB (Rec: 04/03/21 08:14 MB [id number]) Hip Strength Hip Manual Muscle Testing Right Comments Deferred MMT s/p surgery and pain Left Flexion (L2) 5 Normal Abduction 5 Normal Knee Strength Knee Manual Muscle Testing Right Comments Deferred MMT s/p right hip surgery and pain Left Flexion (S2) 4 Good Extension (L3) 5 Normal Ankle/Foot Strength Ankle and Foot Manual Muscle Testing Bilateral Dorsiflexion (L4) 5 Normal Toe Strength Toe Manual Muscle Testing Left Great Toe Extension 3+ Fair+ Right Great Toe Extension 3+ Fair+ PT-OP-Q Treatments Start: 03/30/21 16:01 Freq: Status: Active Protocol: Document 05/25/21 09:47 MB (Rec: 05/25/21 10:33 MB [id number]) Cardio Equipment Recumbent Elliptical (Biodex) Duration (Minutes) 10 Resistance 7 Seat Position 12 Other UE and LE Manual Therapy Treatment Other Other Manual Treatments Side lying B: STM QL, lumbar paraspinals, hip rotators, more work on the right as well as work on right vastus lateralis Neuro Re-Education Treatment Balance Activities FGA Comments FGA score is 26/30 with most trouble with tandem walking and he has some gait changes d /t right hip surgery and antalgic pattern PT-OP-R Modalities Start: 04/06/21 13:54 Freq: Status: Active Protocol: Document 04/06/21 12:03 MA (Rec: 04/06/21 14:00 MA [id number]) Hot Pack/Cold Pack Treatment Cold Pack Location Ant. R hip Patient Position Hooklying Treatment Duration (minutes) 15 Patient Tolerance Good PT-OP-T Assessment and Plan Start: 03/30/21 16:01 Freq: Status: Active Protocol: Document 05/25/21 09:47 MB (Rec: 05/25/21 10:33 MB [id number]) Physical Therapy Assessment Rehab Potential Rehabilitation Potential Good Evaluation Complexity Number of Personal Factors/Comorbidities 1-2 Number of Body Systems Impaired 1-2 Clinical Presentation at Evaluation Stable Impairments Impairments Activity Tolerance,Balance, Edema,Functional Activities, Functional Mobility,Gait, Integument,Pain,Posture,ROM, Soft Tissue Mobility,Strength, Transfers Other Concerns Fall Risk Yes Goals 5 Detention Goal (LTG) Pt will perform progressive HEP with I including balance, flexibility, strengthening and gait exercises to improve overall mobility and I by 07/11. 05/10/21: Anterior hip stretch with leg straight, pelvic realignment exercises, abdominal drawing in, bridge with band around knees and clam in hook lying, sitting LAQ, ankle eversion and DF and clam in sitting with band LTG Duration 8 weeks 4 Detention Goal (LTG) Pt will perform WNLs on a standardized balance test to improve safety by 07/11/21. 05/25/21: FGA score is 26/30 which is normal 05/10/21: Deferred testing d/t hip pain after 6MWT LTG Duration Met 3 Detention Goal (LTG) Pt will gait train at least 1400 feet without AD in 6 minutes to improve community ambulation by 07/11/21. 05/10/21: Pt gait trains 1304 feet in 6 minutes with antalgic gait, favoring the right LE with decreased equal step-length and foot clearance . Pt reports 4/10 pain in right hip. LTG Duration 8 weeks 2 Detention Goal (LTG) Pt will present with B hip flexion and abduction and knee flexion and extension strength to 5/5 to improve gait and transfers by 07/11/21. 05/10/21: Deferred MMT today d/ t increased right hip pain before and during treatment LTG Duration 8 weeks 1 Impairment LEF reflects 83.75% impairment on eval [employer] Goal (LTG) Pt will present with an improved LEF score to reflect no more than 30% functional impairment by 07/11/21. 05/10/21: LEF score reflects 41 .25% impairment LTG Duration 8 weeks Assessment Summary Assessment Balance testing is okay and can con't to work on balance and gait tasks. He con't with right hip tension in anterior hip, quads, QL, abdominals and hip flexors and will con't to benefit from side lying manual work and gentle PNF being thoughtful about hip extension. Physical Therapy Plan Frequency and Duration Frequency of Treatment 2x/Week Duration of Treatment 8 weeks Plan of Care Start Date 05/10/21 Plan of Care End Date 07/11/21 Therapeutic Interventions Therapeutic Interventions Balance Training,Canalithic Repositioning,Gait Training, Home Exercise Program,Joint Mobilizations,Manual Therapy, Neuromuscular Re-education, Patient/Caregiver Education, Self-Care/Home Management,Soft Tissue Mobilization,Taping, Therapeutic Activities, Therapeutic Exercises Modalities Cold Pack/Ice Massage,Hot Packs Next Visit Focus/Plan Next Note Type Treatment Note Next Visit Plan More sidelying work on QL Consider manual assist PNF in side lying, balance exercises and progressive LE strengthening in standing including step ups and down to the side and forward and backwards (carefully), heel raises with multifidi engagement with band at side
--- NOTE | 2021-05-31 10:30 | PT.OTN ---
Current Diagnoses Unilateral primary osteoarthritis, right hip (05/31/21) Physical Therapy Treatment Note PT-OP-A Visit Information Start: 03/30/21 16:01 Freq: Status: Active Protocol: Document 05/31/21 09:45 MB (Rec: 05/31/21 10:27 MB [id number]) Out-Patient Physical Therapy Visit Information Visit Information Visit Type Treatment Note Visit Note visits allowed Visit Start Time 09:45 Visit Stop Time 10:30 Total Visit Minutes 45 Visit Number 14 Precautions Precautions Anterior hip precautions right hip PT-OP-B Current Condition Start: 03/30/21 16:01 Freq: Status: Active Protocol: Document 04/03/21 07:36 MB (Rec: 04/03/21 07:47 MB [id number]) Current Condition History of Current Condition Onset Date 03/22/21 Current Complaints Right sided lateral leg pain History of Current Condition Pt is s/p right THR on 03/22/21 . PMH includes: CAD, cardiomyopathy, DDD, hearing impaired, HLD, HTN, [place] 2008, pre-diabetes, back and neck fusions, hernia repair. Pt reports up to 7/10 lateral right hip pain. He states there is a lump there. He has not had his first post-op visit and will ask Dr. Flynn about this at the follow-up. Pt is using the rolling walker . He is not using a shower chair though he has one. He has two steps and no railing. 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 Prior Treatments and Tests Multiple surgeries and PT in the past for his neck that went well Treatment Goals Patient/Caregiver Goals To get back in shape PT-OP-C Subjective Start: 03/30/21 16:01 Freq: Status: Active Protocol: Document 05/31/21 09:45 MB (Rec: 05/31/21 10:27 MB [id number]) OP-PT Subjective Patient Comments Patient Comments Pt states that his right ankle con't to get worse--likely flare-up from old injury. He will make an appointment with Dr. Flynn when he has time. His cousin suddenly and he does not know his schedule as far as the . PT-OP-G Mobility & Gait Start: 03/30/21 16:01 Freq: Status: Active Protocol: Document 04/03/21 07:36 MB (Rec: 04/03/21 08:11 MB [id number]) OP Gait Assessment Gait Gait Assistance Required: Independent Distance (Feet) 30 Able to Maintain Weight Bearing Status Yes During Gait Assistive Devices Assistive Device None,Front Wheeled Walker Orthotic/Prosthetic Devices or Brace: No Gait Deviations General Gait Pattern Antalgic,Decreased Stride Length,Decreased Feet Clearance,Flexed Trunk,Step-to Gait Factors Limiting Gait Function Factors Limiting Gait Function Decreased Activity Tolerance, Decreased Strength,Limited Range of Motion,Pain Comments Gait Comments Pt arrives gait training with walker too far in front of him . His gait improves with posture and foot clearance and reciprocal gait when he steps closer to the walker. Pt's gait without walker is much slower and more antalgic: decreased step-length and foot clearance, little arm swing on the right and decreased right hip flexion and extension. PT-OP-J Posture/Palpation/Skin Start: 03/30/21 16:01 Freq: Status: Active Protocol: Document 04/03/21 07:36 MB (Rec: 04/03/21 08:11 MB [id number]) Posture Evaluation Comments Posture Comments Posture without AD is poor, flexed and decreased WB through this right LE with increased hip flexion and right LE guarding PT-OP-K Range of Motion Start: 03/30/21 16:01 Freq: Status: Active Protocol: Document 04/03/21 07:36 MB (Rec: 04/03/21 08:13 MB [id number]) Hip Goniometric Range of Motion Hip ROM Limitations Comments Limited passive right hip extension in supine and PT does not manually assess any hip range post-op. His leg does settle into better extension after lying several minutes PT-OP-M Strength Start: 03/30/21 16:01 Freq: Status: Active Protocol: Document 04/03/21 07:36 MB (Rec: 04/03/21 08:14 MB [id number]) Hip Strength Hip Manual Muscle Testing Right Comments Deferred MMT s/p surgery and pain Left Flexion (L2) 5 Normal Abduction 5 Normal Knee Strength Knee Manual Muscle Testing Right Comments Deferred MMT s/p right hip surgery and pain Left Flexion (S2) 4 Good Extension (L3) 5 Normal Ankle/Foot Strength Ankle and Foot Manual Muscle Testing Bilateral Dorsiflexion (L4) 5 Normal Toe Strength Toe Manual Muscle Testing Left Great Toe Extension 3+ Fair+ Right Great Toe Extension 3+ Fair+ PT-OP-Q Treatments Start: 03/30/21 16:01 Freq: Status: Active Protocol: Document 05/31/21 09:45 MB (Rec: 05/31/21 10:27 MB [id number]) Cardio Equipment Recumbent Elliptical (BiodSeguricel) Duration (Minutes) 10 Resistance 7 Seat Position 12 Other UEs and LEs Manual Therapy Treatment Other Other Manual Treatments B Side lying: STM B gastroc soleus, TFL, thoracolumbar paraspinals, QL, vastus lateralis, much more work on the tighter right side. Also worked on right DF. MWM right PFs with PT performing TrP pressure and pt performing active AP, STM right rectus femoris proximally, initiated PNF for pelvis on the right today PT-OP-R Modalities Start: 04/06/21 13:54 Freq: Status: Active Protocol: Document 04/06/21 12:03 MA (Rec: 04/06/21 14:00 MA [id number]) Hot Pack/Cold Pack Treatment Cold Pack Location Ant. R hip Patient Position Hooklying Treatment Duration (minutes) 15 Patient Tolerance Good PT-OP-T Assessment and Plan Start: 03/30/21 16:01 Freq: Status: Active Protocol: Document 05/31/21 09:45 MB (Rec: 05/31/21 10:27 MB [id number]) Physical Therapy Assessment Rehab Potential Rehabilitation Potential Good Evaluation Complexity Number of Personal Factors/Comorbidities 1-2 Number of Body Systems Impaired 1-2 Clinical Presentation at Evaluation Stable Impairments Impairments Activity Tolerance,Balance, Edema,Functional Activities, Functional Mobility,Gait, Integument,Pain,Posture,ROM, Soft Tissue Mobility,Strength, Transfers Other Concerns Fall Risk Yes Goals 5 [employer] Goal (LTG) Pt will perform progressive HEP with I including balance, flexibility, strengthening and gait exercises to improve overall mobility and I by 07/11. 05/10/21: Anterior hip stretch with leg straight, pelvic realignment exercises, abdominal drawing in, bridge with band around knees and clam in hook lying, sitting LAQ, ankle eversion and DF and clam in sitting with band LTG Duration 8 weeks 4 [employer] Goal (LTG) Pt will perform WNLs on a standardized balance test to improve safety by 07/11/21. 05/25/21: FGA score is 26/30 which is normal 05/10/21: Deferred testing d/t hip pain after 6MWT LTG Duration Met 3 Detention Goal (LTG) Pt will gait train at least 1400 feet without AD in 6 minutes to improve community ambulation by 07/11/21. 05/10/21: Pt gait trains 1304 feet in 6 minutes with antalgic gait, favoring the right LE with decreased equal step-length and foot clearance . Pt reports 4/10 pain in right hip. LTG Duration 8 weeks 2 Detention Goal (LTG) Pt will present with B hip flexion and abduction and knee flexion and extension strength to 5/5 to improve gait and transfers by 07/11/21. 05/10/21: Deferred MMT today d/ t increased right hip pain before and during treatment LTG Duration 8 weeks 1 Impairment LEF reflects 83.75% impairment on eval [employer] Goal (LTG) Pt will present with an improved LEF score to reflect no more than 30% functional impairment by 07/11/21. 05/10/21: LEF score reflects 41 .25% impairment LTG Duration 8 weeks Assessment Summary Assessment Right ankle discomfort impedes gait improvement. He tolerates manual work well today, will con't efforts per plan below. Physical Therapy Plan Frequency and Duration Frequency of Treatment 2x/Week Duration of Treatment 8 weeks Plan of Care Start Date 05/10/21 Plan of Care End Date 07/11/21 Therapeutic Interventions Therapeutic Interventions Balance Training,Canalithic Repositioning,Gait Training, Home Exercise Program,Joint Mobilizations,Manual Therapy, Neuromuscular Re-education, Patient/Caregiver Education, Self-Care/Home Management,Soft Tissue Mobilization,Taping, Therapeutic Activities, Therapeutic Exercises Modalities Cold Pack/Ice Massage,Hot Packs Next Visit Focus/Plan Next Note Type Treatment Note Next Visit Plan Similar: More sidelying work on QL Consider manual assist PNF in side lying, balance exercises and progressive LE strengthening in standing including step ups and down to the side and forward and backwards (carefully), heel raises with multifidi engagement with band at side
--- NOTE | 2021-06-04 10:30 | PT.OTN ---
Current Diagnoses Unilateral primary osteoarthritis, right hip (06/04/21) Physical Therapy Treatment Note PT-OP-A Visit Information Start: 03/30/21 16:01 Freq: Status: Active Protocol: Document 06/04/21 09:46 MB (Rec: 06/04/21 10:13 MB [id number]) Out-Patient Physical Therapy Visit Information Visit Information Visit Type Treatment Note Visit Note visits allowed Visit Start Time 09:46 Visit Stop Time 10:30 Total Visit Minutes 44 Visit Number 15 Precautions Precautions Anterior hip precautions right hip PT-OP-B Current Condition Start: 03/30/21 16:01 Freq: Status: Active Protocol: Document 04/03/21 07:36 MB (Rec: 04/03/21 07:47 MB [id number]) Current Condition History of Current Condition Onset Date 03/22/21 Current Complaints Right sided lateral leg pain History of Current Condition Pt is s/p right THR on 03/22/21 . PMH includes: CAD, cardiomyopathy, DDD, hearing impaired, HLD, HTN, [place] 2008, pre-diabetes, back and neck fusions, hernia repair. Pt reports up to 7/10 lateral right hip pain. He states there is a lump there. He has not had his first post-op visit and will ask Dr. Flynn about this at the follow-up. Pt is using the rolling walker . He is not using a shower chair though he has one. He has two steps and no railing. 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 Prior Treatments and Tests Multiple surgeries and PT in the past for his neck that went well Treatment Goals Patient/Caregiver Goals To get back in shape PT-OP-C Subjective Start: 03/30/21 16:01 Freq: Status: Active Protocol: Document 06/04/21 09:46 MB (Rec: 06/04/21 10:13 MB [id number]) OP-PT Subjective Patient Comments Patient Comments Pt states that his ankle is really starting to bother him. He has not made an appointment with Dr. Flynn yet as he is waiting to hear about arrangement for his cousin's . PT-OP-G Mobility & Gait Start: 03/30/21 16:01 Freq: Status: Active Protocol: Document 04/03/21 07:36 MB (Rec: 04/03/21 08:11 MB [id number]) OP Gait Assessment Gait Gait Assistance Required: Independent Distance (Feet) 30 Able to Maintain Weight Bearing Status Yes During Gait Assistive Devices Assistive Device None,Front Wheeled Walker Orthotic/Prosthetic Devices or Brace: No Gait Deviations General Gait Pattern Antalgic,Decreased Stride Length,Decreased Feet Clearance,Flexed Trunk,Step-to Gait Factors Limiting Gait Function Factors Limiting Gait Function Decreased Activity Tolerance, Decreased Strength,Limited Range of Motion,Pain Comments Gait Comments Pt arrives gait training with walker too far in front of him . His gait improves with posture and foot clearance and reciprocal gait when he steps closer to the walker. Pt's gait without walker is much slower and more antalgic: decreased step-length and foot clearance, little arm swing on the right and decreased right hip flexion and extension. PT-OP-J Posture/Palpation/Skin Start: 03/30/21 16:01 Freq: Status: Active Protocol: Document 04/03/21 07:36 MB (Rec: 04/03/21 08:11 MB [id number]) Posture Evaluation Comments Posture Comments Posture without AD is poor, flexed and decreased WB through this right LE with increased hip flexion and right LE guarding PT-OP-K Range of Motion Start: 03/30/21 16:01 Freq: Status: Active Protocol: Document 04/03/21 07:36 MB (Rec: 04/03/21 08:13 MB [id number]) Hip Goniometric Range of Motion Hip ROM Limitations Comments Limited passive right hip extension in supine and PT does not manually assess any hip range post-op. His leg does settle into better extension after lying several minutes PT-OP-M Strength Start: 03/30/21 16:01 Freq: Status: Active Protocol: Document 04/03/21 07:36 MB (Rec: 04/03/21 08:14 MB [id number]) Hip Strength Hip Manual Muscle Testing Right Comments Deferred MMT s/p surgery and pain Left Flexion (L2) 5 Normal Abduction 5 Normal Knee Strength Knee Manual Muscle Testing Right Comments Deferred MMT s/p right hip surgery and pain Left Flexion (S2) 4 Good Extension (L3) 5 Normal Ankle/Foot Strength Ankle and Foot Manual Muscle Testing Bilateral Dorsiflexion (L4) 5 Normal Toe Strength Toe Manual Muscle Testing Left Great Toe Extension 3+ Fair+ Right Great Toe Extension 3+ Fair+ PT-OP-Q Treatments Start: 03/30/21 16:01 Freq: Status: Active Protocol: Document 06/04/21 09:46 MB (Rec: 06/04/21 10:13 MB [id number]) Cardio Equipment Recumbent Elliptical (Biodex) Duration (Minutes) 10 Resistance 8 Seat Position 12 Other UEs and LEs Manual Therapy Treatment Other Other Manual Treatments B sidelying: STM vastus lateralis, hip rotators, TFL and QL, thoracolumbar paraspinals Neuro Re-Education Treatment Balance Activities PNF Comments Side lying B: PNF pelvic and LE movements working legs into hip extension, ER and ankle PF and then hip and knee flexion and ankle DF with PT manual and VC assist. Pt has trouble following commands initially for this. PT-OP-R Modalities Start: 04/06/21 13:54 Freq: Status: Active Protocol: Document 04/06/21 12:03 MA (Rec: 04/06/21 14:00 MA [id number]) Hot Pack/Cold Pack Treatment Cold Pack Location Ant. R hip Patient Position Hooklying Treatment Duration (minutes) 15 Patient Tolerance Good PT-OP-T Assessment and Plan Start: 03/30/21 16:01 Freq: Status: Active Protocol: Document 06/04/21 09:46 MB (Rec: 06/04/21 10:13 MB [id number]) Physical Therapy Assessment Rehab Potential Rehabilitation Potential Good Evaluation Complexity Number of Personal Factors/Comorbidities 1-2 Number of Body Systems Impaired 1-2 Clinical Presentation at Evaluation Stable Impairments Impairments Activity Tolerance,Balance, Edema,Functional Activities, Functional Mobility,Gait, Integument,Pain,Posture,ROM, Soft Tissue Mobility,Strength, Transfers Other Concerns Fall Risk Yes Goals 5 Intermediate Goal (LTG) Pt will perform progressive HEP with I including balance, flexibility, strengthening and gait exercises to improve overall mobility and I by 07/11. 05/10/21: Anterior hip stretch with leg straight, pelvic realignment exercises, abdominal drawing in, bridge with band around knees and clam in hook lying, sitting LAQ, ankle eversion and DF and clam in sitting with band LTG Duration 8 weeks 4 Intermediate Goal (LTG) Pt will perform WNLs on a standardized balance test to improve safety by 07/11/21. 05/25/21: FGA score is 26/30 which is normal 05/10/21: Deferred testing d/t hip pain after 6MWT LTG Duration Met 3 Intermediate Goal (LTG) Pt will gait train at least 1400 feet without AD in 6 minutes to improve community ambulation by 07/11/21. 05/10/21: Pt gait trains 1304 feet in 6 minutes with antalgic gait, favoring the right LE with decreased equal step-length and foot clearance . Pt reports 4/10 pain in right hip. LTG Duration 8 weeks 2 Intermediate Goal (LTG) Pt will present with B hip flexion and abduction and knee flexion and extension strength to 5/5 to improve gait and transfers by 07/11/21. 05/10/21: Deferred MMT today d/ t increased right hip pain before and during treatment LTG Duration 8 weeks 1 Impairment LEF reflects 83.75% impairment on eval Intermediate Goal (LTG) Pt will present with an improved LEF score to reflect no more than 30% functional impairment by 07/11/21. 05/10/21: LEF score reflects 41 .25% impairment LTG Duration 8 weeks Assessment Summary Assessment Initiated PNF today and it was difficult for pt. Con't progression. Physical Therapy Plan Frequency and Duration Frequency of Treatment 2x/Week Duration of Treatment 8 weeks Plan of Care Start Date 05/10/21 Plan of Care End Date 07/11/21 Therapeutic Interventions Therapeutic Interventions Balance Training,Canalithic Repositioning,Gait Training, Home Exercise Program,Joint Mobilizations,Manual Therapy, Neuromuscular Re-education, Patient/Caregiver Education, Self-Care/Home Management,Soft Tissue Mobilization,Taping, Therapeutic Activities, Therapeutic Exercises Modalities Cold Pack/Ice Massage,Hot Packs Next Visit Focus/Plan Next Note Type Treatment Note Next Visit Plan Sidelying manual work and PNF, side stepping with band, heel raises with multifidi engagement with band at side, tandem balance for home
--- NOTE | 2021-06-07 10:26 | PT.OTN ---
Current Diagnoses Unilateral primary osteoarthritis, right hip (06/07/21) Physical Therapy Treatment Note PT-OP-A Visit Information Start: 03/30/21 16:01 Freq: Status: Active Protocol: Document 06/07/21 09:46 MB (Rec: 06/07/21 10:19 MB [id number]) Out-Patient Physical Therapy Visit Information Visit Information Visit Type Treatment Note Visit Note visits allowed Visit Start Time 09:46 Visit Stop Time 10:24 Total Visit Minutes 38 Visit Number 16 Precautions Precautions Anterior hip precautions right hip PT-OP-B Current Condition Start: 03/30/21 16:01 Freq: Status: Active Protocol: Document 04/03/21 07:36 MB (Rec: 04/03/21 07:47 MB [id number]) Current Condition History of Current Condition Onset Date 03/22/21 Current Complaints Right sided lateral leg pain History of Current Condition Pt is s/p right THR on 03/22/21 . PMH includes: CAD, cardiomyopathy, DDD, hearing impaired, HLD, HTN, [place] 2008, pre-diabetes, back and neck fusions, hernia repair. Pt reports up to 7/10 lateral right hip pain. He states there is a lump there. He has not had his first post-op visit and will ask Dr. Flynn about this at the follow-up. Pt is using the rolling walker . He is not using a shower chair though he has one. He has two steps and no railing. 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 Prior Treatments and Tests Multiple surgeries and PT in the past for his neck that went well Treatment Goals Patient/Caregiver Goals To get back in shape PT-OP-C Subjective Start: 03/30/21 16:01 Freq: Status: Active Protocol: Document 06/07/21 09:46 MB (Rec: 06/07/21 10:19 MB [id number]) OP-PT Subjective Patient Comments Patient Comments Pt states that the treatment worked last time. He states that the PNF seemed to help his foot as well. PT-OP-G Mobility & Gait Start: 03/30/21 16:01 Freq: Status: Active Protocol: Document 04/03/21 07:36 MB (Rec: 04/03/21 08:11 MB [id number]) OP Gait Assessment Gait Gait Assistance Required: Independent Distance (Feet) 30 Able to Maintain Weight Bearing Status Yes During Gait Assistive Devices Assistive Device None,Front Wheeled Walker Orthotic/Prosthetic Devices or Brace: No Gait Deviations General Gait Pattern Antalgic,Decreased Stride Length,Decreased Feet Clearance,Flexed Trunk,Step-to Gait Factors Limiting Gait Function Factors Limiting Gait Function Decreased Activity Tolerance, Decreased Strength,Limited Range of Motion,Pain Comments Gait Comments Pt arrives gait training with walker too far in front of him . His gait improves with posture and foot clearance and reciprocal gait when he steps closer to the walker. Pt's gait without walker is much slower and more antalgic: decreased step-length and foot clearance, little arm swing on the right and decreased right hip flexion and extension. PT-OP-J Posture/Palpation/Skin Start: 03/30/21 16:01 Freq: Status: Active Protocol: Document 04/03/21 07:36 MB (Rec: 04/03/21 08:11 MB [id number]) Posture Evaluation Comments Posture Comments Posture without AD is poor, flexed and decreased WB through this right LE with increased hip flexion and right LE guarding PT-OP-K Range of Motion Start: 03/30/21 16:01 Freq: Status: Active Protocol: Document 04/03/21 07:36 MB (Rec: 04/03/21 08:13 MB [id number]) Hip Goniometric Range of Motion Hip ROM Limitations Comments Limited passive right hip extension in supine and PT does not manually assess any hip range post-op. His leg does settle into better extension after lying several minutes PT-OP-M Strength Start: 03/30/21 16:01 Freq: Status: Active Protocol: Document 04/03/21 07:36 MB (Rec: 04/03/21 08:14 MB [id number]) Hip Strength Hip Manual Muscle Testing Right Comments Deferred MMT s/p surgery and pain Left Flexion (L2) 5 Normal Abduction 5 Normal Knee Strength Knee Manual Muscle Testing Right Comments Deferred MMT s/p right hip surgery and pain Left Flexion (S2) 4 Good Extension (L3) 5 Normal Ankle/Foot Strength Ankle and Foot Manual Muscle Testing Bilateral Dorsiflexion (L4) 5 Normal Toe Strength Toe Manual Muscle Testing Left Great Toe Extension 3+ Fair+ Right Great Toe Extension 3+ Fair+ PT-OP-Q Treatments Start: 03/30/21 16:01 Freq: Status: Active Protocol: Document 06/07/21 09:46 MB (Rec: 06/07/21 10:19 MB [id number]) Cardio Equipment Recumbent Elliptical (Biodex) Duration (Minutes) 10 Resistance 8 Seat Position 12 Other UEs and LEs Manual Therapy Treatment Other Other Manual Treatments B sidelying with much more work on right LE: STM vastus lateralis, hip rotators, TFL and QL, thoracolumbar paraspinals Neuro Re-Education Treatment Balance Activities PNF Comments Side lying B with much more work on R LE: PNF pelvic and LE movements working legs into hip extension, ER and ankle PF and then hip and knee flexion and ankle DF with PT manual and VC assist. Pt's right hamstring has a lot of tension and so manual work on it with pt in supine today PT-OP-R Modalities Start: 04/06/21 13:54 Freq: Status: Active Protocol: Document 04/06/21 12:03 MA (Rec: 04/06/21 14:00 MA [id number]) Hot Pack/Cold Pack Treatment Cold Pack Location Ant. R hip Patient Position Hooklying Treatment Duration (minutes) 15 Patient Tolerance Good PT-OP-T Assessment and Plan Start: 03/30/21 16:01 Freq: Status: Active Protocol: Document 06/07/21 09:46 MB (Rec: 06/07/21 10:19 MB [id number]) Physical Therapy Assessment Rehab Potential Rehabilitation Potential Good Evaluation Complexity Number of Personal Factors/Comorbidities 1-2 Number of Body Systems Impaired 1-2 Clinical Presentation at Evaluation Stable Impairments Impairments Activity Tolerance,Balance, Edema,Functional Activities, Functional Mobility,Gait, Integument,Pain,Posture,ROM, Soft Tissue Mobility,Strength, Transfers Other Concerns Fall Risk Yes Goals 5 [facility] Goal (LTG) Pt will perform progressive HEP with I including balance, flexibility, strengthening and gait exercises to improve overall mobility and I by 07/11. 05/10/21: Anterior hip stretch with leg straight, pelvic realignment exercises, abdominal drawing in, bridge with band around knees and clam in hook lying, sitting LAQ, ankle eversion and DF and clam in sitting with band LTG Duration 8 weeks 4 [facility] Goal (LTG) Pt will perform WNLs on a standardized balance test to improve safety by 07/11/21. 05/25/21: FGA score is 26/30 which is normal 05/10/21: Deferred testing d/t hip pain after 6MWT LTG Duration Met 3 [facility] Goal (LTG) Pt will gait train at least 1400 feet without AD in 6 minutes to improve community ambulation by 07/11/21. 05/10/21: Pt gait trains 1304 feet in 6 minutes with antalgic gait, favoring the right LE with decreased equal step-length and foot clearance . Pt reports 4/10 pain in right hip. LTG Duration 8 weeks 2 [employer] Goal (LTG) Pt will present with B hip flexion and abduction and knee flexion and extension strength to 5/5 to improve gait and transfers by 07/11/21. 05/10/21: Deferred MMT today d/ t increased right hip pain before and during treatment LTG Duration 8 weeks 1 Impairment LEF reflects 83.75% impairment on eval [facility] Goal (LTG) Pt will present with an improved LEF score to reflect no more than 30% functional impairment by 07/11/21. 05/10/21: LEF score reflects 41 .25% impairment LTG Duration 8 weeks Assessment Summary Assessment PNF con't to be challenging and helpful. Con't per POC below to progress exercises for home. Physical Therapy Plan Frequency and Duration Frequency of Treatment 2x/Week Duration of Treatment 8 weeks Plan of Care Start Date 05/10/21 Plan of Care End Date 07/11/21 Therapeutic Interventions Therapeutic Interventions Balance Training,Canalithic Repositioning,Gait Training, Home Exercise Program,Joint Mobilizations,Manual Therapy, Neuromuscular Re-education, Patient/Caregiver Education, Self-Care/Home Management,Soft Tissue Mobilization,Taping, Therapeutic Activities, Therapeutic Exercises Modalities Cold Pack/Ice Massage,Hot Packs Next Visit Focus/Plan Next Note Type Treatment Note Next Visit Plan Similar: Sidelying manual work and PNF, side stepping with band, heel raises with multifidi engagement with band at side, tandem balance for home
--- NOTE | 2021-06-11 10:40 | PT.OTN ---
Current Diagnoses Unilateral primary osteoarthritis, right hip (06/11/21) Physical Therapy Treatment Note PT-OP-A Visit Information Start: 03/30/21 16:01 Freq: Status: Active Protocol: Document 06/11/21 09:45 MB (Rec: 06/11/21 10:40 MB [id number]) Out-Patient Physical Therapy Visit Information Visit Information Visit Type Treatment Note Visit Note visits allowed Visit Start Time 09:45 Visit Stop Time 10:30 Total Visit Minutes 45 Visit Number 17 Precautions Precautions Anterior hip precautions right hip PT-OP-B Current Condition Start: 03/30/21 16:01 Freq: Status: Active Protocol: Document 04/03/21 07:36 MB (Rec: 04/03/21 07:47 MB [id number]) Current Condition History of Current Condition Onset Date 03/22/21 Current Complaints Right sided lateral leg pain History of Current Condition Pt is s/p right THR on 03/22/21 . PMH includes: CAD, cardiomyopathy, DDD, hearing impaired, HLD, HTN, [place] 2008, pre-diabetes, back and neck fusions, hernia repair. Pt reports up to 7/10 lateral right hip pain. He states there is a lump there. He has not had his first post-op visit and will ask Dr. Flynn about this at the follow-up. Pt is using the rolling walker . He is not using a shower chair though he has one. He has two steps and no railing. 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 Prior Treatments and Tests Multiple surgeries and PT in the past for his neck that went well Treatment Goals Patient/Caregiver Goals To get back in shape PT-OP-C Subjective Start: 03/30/21 16:01 Freq: Status: Active Protocol: Document 06/11/21 09:45 MB (Rec: 06/11/21 10:40 MB [id number]) OP-PT Subjective Patient Comments Patient Comments Pt states that he lifted a lot of stuff over the weekend to clean out. PT-OP-G Mobility & Gait Start: 03/30/21 16:01 Freq: Status: Active Protocol: Document 04/03/21 07:36 MB (Rec: 04/03/21 08:11 MB [id number]) OP Gait Assessment Gait Gait Assistance Required: Independent Distance (Feet) 30 Able to Maintain Weight Bearing Status Yes During Gait Assistive Devices Assistive Device None,Front Wheeled Walker Orthotic/Prosthetic Devices or Brace: No Gait Deviations General Gait Pattern Antalgic,Decreased Stride Length,Decreased Feet Clearance,Flexed Trunk,Step-to Gait Factors Limiting Gait Function Factors Limiting Gait Function Decreased Activity Tolerance, Decreased Strength,Limited Range of Motion,Pain Comments Gait Comments Pt arrives gait training with walker too far in front of him . His gait improves with posture and foot clearance and reciprocal gait when he steps closer to the walker. Pt's gait without walker is much slower and more antalgic: decreased step-length and foot clearance, little arm swing on the right and decreased right hip flexion and extension. PT-OP-J Posture/Palpation/Skin Start: 03/30/21 16:01 Freq: Status: Active Protocol: Document 04/03/21 07:36 MB (Rec: 04/03/21 08:11 MB [id number]) Posture Evaluation Comments Posture Comments Posture without AD is poor, flexed and decreased WB through this right LE with increased hip flexion and right LE guarding PT-OP-K Range of Motion Start: 03/30/21 16:01 Freq: Status: Active Protocol: Document 04/03/21 07:36 MB (Rec: 04/03/21 08:13 MB [id number]) Hip Goniometric Range of Motion Hip ROM Limitations Comments Limited passive right hip extension in supine and PT does not manually assess any hip range post-op. His leg does settle into better extension after lying several minutes PT-OP-M Strength Start: 03/30/21 16:01 Freq: Status: Active Protocol: Document 04/03/21 07:36 MB (Rec: 04/03/21 08:14 MB [id number]) Hip Strength Hip Manual Muscle Testing Right Comments Deferred MMT s/p surgery and pain Left Flexion (L2) 5 Normal Abduction 5 Normal Knee Strength Knee Manual Muscle Testing Right Comments Deferred MMT s/p right hip surgery and pain Left Flexion (S2) 4 Good Extension (L3) 5 Normal Ankle/Foot Strength Ankle and Foot Manual Muscle Testing Bilateral Dorsiflexion (L4) 5 Normal Toe Strength Toe Manual Muscle Testing Left Great Toe Extension 3+ Fair+ Right Great Toe Extension 3+ Fair+ PT-OP-Q Treatments Start: 03/30/21 16:01 Freq: Status: Active Protocol: Document 06/11/21 09:45 MB (Rec: 06/11/21 10:40 MB [id number]) Manual Therapy Treatment Other Other Manual Treatments Pt hook lying with pillow under knees: positional release right plantar fascia and gastrocsoleus, positional release medial right hamstring , right rectus femoris and hip flexors, lateral obliques, MWM right TFL with pt performing active IR and ER leg straight and then MWM passively with PT providing TrP pressure and rolling femur into IR and ER PT-OP-R Modalities Start: 04/06/21 13:54 Freq: Status: Active Protocol: Document 04/06/21 12:03 MA (Rec: 04/06/21 14:00 MA [id number]) Hot Pack/Cold Pack Treatment Cold Pack Location Ant. R hip Patient Position Hooklying Treatment Duration (minutes) 15 Patient Tolerance Good PT-OP-T Assessment and Plan Start: 03/30/21 16:01 Freq: Status: Active Protocol: Document 06/11/21 09:45 MB (Rec: 06/11/21 10:40 MB [id number]) Physical Therapy Assessment Rehab Potential Rehabilitation Potential Good Evaluation Complexity Number of Personal Factors/Comorbidities 1-2 Number of Body Systems Impaired 1-2 Clinical Presentation at Evaluation Stable Impairments Impairments Activity Tolerance,Balance, Edema,Functional Activities, Functional Mobility,Gait, Integument,Pain,Posture,ROM, Soft Tissue Mobility,Strength, Transfers Other Concerns Fall Risk Yes Goals 5 Correction Goal (LTG) Pt will perform progressive HEP with I including balance, flexibility, strengthening and gait exercises to improve overall mobility and I by 07/11. 05/10/21: Anterior hip stretch with leg straight, pelvic realignment exercises, abdominal drawing in, bridge with band around knees and clam in hook lying, sitting LAQ, ankle eversion and DF and clam in sitting with band LTG Duration 8 weeks 4 Correction Goal (LTG) Pt will perform WNLs on a standardized balance test to improve safety by 07/11/21. 05/25/21: FGA score is 26/30 which is normal 05/10/21: Deferred testing d/t hip pain after 6MWT LTG Duration Met 3 Correction Goal (LTG) Pt will gait train at least 1400 feet without AD in 6 minutes to improve community ambulation by 07/11/21. 05/10/21: Pt gait trains 1304 feet in 6 minutes with antalgic gait, favoring the right LE with decreased equal step-length and foot clearance . Pt reports 4/10 pain in right hip. LTG Duration 8 weeks 2 Die Keeper Goal (LTG) Pt will present with B hip flexion and abduction and knee flexion and extension strength to 5/5 to improve gait and transfers by 07/11/21. 05/10/21: Deferred MMT today d/ t increased right hip pain before and during treatment LTG Duration 8 weeks 1 Impairment LEF reflects 83.75% impairment on eval Correction Goal (LTG) Pt will present with an improved LEF score to reflect no more than 30% functional impairment by 07/11/21. 05/10/21: LEF score reflects 41 .25% impairment LTG Duration 8 weeks Assessment Summary Assessment Different manual work today to help address pt's pain in right LE to improve walking and prepare for progressing strengthening and balance exercises next treatment. Right plantar fascia addressed to help with gait and his gait is much less antalgic and more upright after treatment. Physical Therapy Plan Frequency and Duration Frequency of Treatment 2x/Week Duration of Treatment 8 weeks Plan of Care Start Date 05/10/21 Plan of Care End Date 07/11/21 Therapeutic Interventions Therapeutic Interventions Balance Training,Canalithic Repositioning,Gait Training, Home Exercise Program,Joint Mobilizations,Manual Therapy, Neuromuscular Re-education, Patient/Caregiver Education, Self-Care/Home Management,Soft Tissue Mobilization,Taping, Therapeutic Activities, Therapeutic Exercises Modalities Cold Pack/Ice Massage,Hot Packs Next Visit Focus/Plan Next Note Type Treatment Note Next Visit Plan Core progression, side stepping with band, heel raises with multifidi engagement with band at side, tandem balance for home
--- NOTE | 2021-06-14 10:32 | PT.OTN ---
Current Diagnoses Unilateral primary osteoarthritis, right hip (06/14/21) Physical Therapy Treatment Note PT-OP-A Visit Information Start: 03/30/21 16:01 Freq: Status: Active Protocol: Document 06/14/21 09:46 MB (Rec: 06/14/21 10:31 MB [id number]) Out-Patient Physical Therapy Visit Information Visit Information Visit Type Treatment Note Visit Note Visit Start Time 09:46 Visit Stop Time 10:30 Total Visit Minutes 44 Visit Number 18 Precautions Precautions Anterior hip precautions right hip PT-OP-B Current Condition Start: 03/30/21 16:01 Freq: Status: Active Protocol: Document 04/03/21 07:36 MB (Rec: 04/03/21 07:47 MB [id number]) Current Condition History of Current Condition Onset Date 03/22/21 Current Complaints Right sided lateral leg pain History of Current Condition Pt is s/p right THR on 03/22/21 . PMH includes: CAD, cardiomyopathy, DDD, hearing impaired, HLD, HTN, [place] 2009, pre-diabetes, back and neck fusions, hernia repair. Pt reports up to 7/10 lateral right hip pain. He states there is a lump there. He has not had his first post-op visit and will ask Dr. Flynn about this at the follow-up. Pt is using the rolling walker . He is not using a shower chair though he has one. He has two steps and no railing. 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 Prior Treatments and Tests Multiple surgeries and PT in the past for his neck that went well Treatment Goals Patient/Caregiver Goals To get back in shape PT-OP-C Subjective Start: 03/30/21 16:01 Freq: Status: Active Protocol: Document 06/14/21 09:46 MB (Rec: 06/14/21 10:31 MB [id number]) OP-PT Subjective Patient Comments Patient Comments The manual PT helped and then he had to spend a ton of time on his feet and then the pain came back PT-OP-G Mobility & Gait Start: 03/30/21 16:01 Freq: Status: Active Protocol: Document 04/03/21 07:36 MB (Rec: 04/03/21 08:11 MB [id number]) OP Gait Assessment Gait Gait Assistance Required: Independent Distance (Feet) 30 Able to Maintain Weight Bearing Status Yes During Gait Assistive Devices Assistive Device None,Front Wheeled Walker Orthotic/Prosthetic Devices or Brace: No Gait Deviations General Gait Pattern Antalgic,Decreased Stride Length,Decreased Feet Clearance,Flexed Trunk,Step-to Gait Factors Limiting Gait Function Factors Limiting Gait Function Decreased Activity Tolerance, Decreased Strength,Limited Range of Motion,Pain Comments Gait Comments Pt arrives gait training with walker too far in front of him . His gait improves with posture and foot clearance and reciprocal gait when he steps closer to the walker. Pt's gait without walker is much slower and more antalgic: decreased step-length and foot clearance, little arm swing on the right and decreased right hip flexion and extension. PT-OP-J Posture/Palpation/Skin Start: 03/30/21 16:01 Freq: Status: Active Protocol: Document 04/03/21 07:36 MB (Rec: 04/03/21 08:11 MB [id number]) Posture Evaluation Comments Posture Comments Posture without AD is poor, flexed and decreased WB through this right LE with increased hip flexion and right LE guarding PT-OP-K Range of Motion Start: 03/30/21 16:01 Freq: Status: Active Protocol: Document 04/03/21 07:36 MB (Rec: 04/03/21 08:13 MB [id number]) Hip Goniometric Range of Motion Hip ROM Limitations Comments Limited passive right hip extension in supine and PT does not manually assess any hip range post-op. His leg does settle into better extension after lying several minutes PT-OP-M Strength Start: 03/30/21 16:01 Freq: Status: Active Protocol: Document 04/03/21 07:36 MB (Rec: 04/03/21 08:14 MB [id number]) Hip Strength Hip Manual Muscle Testing Right Comments Deferred MMT s/p surgery and pain Left Flexion (L2) 5 Normal Abduction 5 Normal Knee Strength Knee Manual Muscle Testing Right Comments Deferred MMT s/p right hip surgery and pain Left Flexion (S2) 4 Good Extension (L3) 5 Normal Ankle/Foot Strength Ankle and Foot Manual Muscle Testing Bilateral Dorsiflexion (L4) 5 Normal Toe Strength Toe Manual Muscle Testing Left Great Toe Extension 3+ Fair+ Right Great Toe Extension 3+ Fair+ PT-OP-Q Treatments Start: 03/30/21 16:01 Freq: Status: Active Protocol: Document 06/14/21 09:46 MB (Rec: 06/14/21 10:31 MB [id number]) Cardio Equipment Recumbent Elliptical (Biodex) Duration (Minutes) 10 Resistance 9 Other UEs and LEs Therapeutic Exercises Supine Exercises Core progression Supine Exercise Name Abdominal drawing in and pelvic tilt first and keep for ex Side bilateral Resistance Level 2 band Comments Knee rocking, HS, mini march and bridge Standing Exercises Multifidi engaged and heel raises Standing Exercise Name Band at side in doorway, core engaged Side bilateral Comments Cues to slowly raise heels Manual Therapy Treatment Other Other Manual Treatments Pt supine: positional release and STM right plantar fascia, gastroc, medial hamstring PT-OP-R Modalities Start: 04/06/21 13:54 Freq: Status: Active Protocol: Document 04/06/21 12:03 MA (Rec: 04/06/21 14:00 MA [id number]) Hot Pack/Cold Pack Treatment Cold Pack Location Ant. R hip Patient Position Hooklying Treatment Duration (minutes) 15 Patient Tolerance Good PT-OP-T Assessment and Plan Start: 03/30/21 16:01 Freq: Status: Active Protocol: Document 06/14/21 09:46 MB (Rec: 06/14/21 10:31 MB [id number]) Physical Therapy Assessment Rehab Potential Rehabilitation Potential Good Evaluation Complexity Number of Personal Factors/Comorbidities 1-2 Number of Body Systems Impaired 1-2 Clinical Presentation at Evaluation Stable Impairments Impairments Activity Tolerance,Balance, Edema,Functional Activities, Functional Mobility,Gait, Integument,Pain,Posture,ROM, Soft Tissue Mobility,Strength, Transfers Other Concerns Fall Risk Yes Goals 5 Prison Goal (LTG) Pt will perform progressive HEP with I including balance, flexibility, strengthening and gait exercises to improve overall mobility and I by 07/11. 05/10/21: Anterior hip stretch with leg straight, pelvic realignment exercises, abdominal drawing in, bridge with band around knees and clam in hook lying, sitting LAQ, ankle eversion and DF and clam in sitting with band LTG Duration 8 weeks 4 State Auditor Goal (LTG) Pt will perform WNLs on a standardized balance test to improve safety by 07/11/21. 05/25/21: FGA score is 26/30 which is normal 05/10/21: Deferred testing d/t hip pain after 6MWT LTG Duration Met 3 State Auditor Goal (LTG) Pt will gait train at least 1400 feet without AD in 6 minutes to improve community ambulation by 07/11/21. 05/10/21: Pt gait trains 1304 feet in 6 minutes with antalgic gait, favoring the right LE with decreased equal step-length and foot clearance . Pt reports 4/10 pain in right hip. LTG Duration 8 weeks 2 Prison Goal (LTG) Pt will present with B hip flexion and abduction and knee flexion and extension strength to 5/5 to improve gait and transfers by 07/11/21. 05/10/21: Deferred MMT today d/ t increased right hip pain before and during treatment LTG Duration 8 weeks 1 Impairment LEF reflects 83.75% impairment on eval Prison Goal (LTG) Pt will present with an improved LEF score to reflect no more than 30% functional impairment by 07/11/21. 05/10/21: LEF score reflects 41 .25% impairment LTG Duration 8 weeks Assessment Summary Assessment Progressed core and balance exercises today and pt performs with cues. Con't per plan below. Physical Therapy Plan Frequency and Duration Frequency of Treatment 2x/Week Duration of Treatment 8 weeks Plan of Care Start Date 05/10/21 Plan of Care End Date 07/11/21 Therapeutic Interventions Therapeutic Interventions Balance Training,Canalithic Repositioning,Gait Training, Home Exercise Program,Joint Mobilizations,Manual Therapy, Neuromuscular Re-education, Patient/Caregiver Education, Self-Care/Home Management,Soft Tissue Mobilization,Taping, Therapeutic Activities, Therapeutic Exercises Modalities Cold Pack/Ice Massage,Hot Packs Next Visit Focus/Plan Next Note Type Treatment Note Next Visit Plan Side stepping with band, tandem balance for home
--- NOTE | 2021-06-18 10:35 | PT.OTN ---
Current Diagnoses Unilateral primary osteoarthritis, right hip (06/18/21) Physical Therapy Treatment Note PT-OP-A Visit Information Start: 03/30/21 16:01 Freq: Status: Active Protocol: Document 06/18/21 09:45 MB (Rec: 06/18/21 10:20 MB [id number]) Out-Patient Physical Therapy Visit Information Visit Information Visit Type Treatment Note Visit Note Visit Start Time 09:45 Visit Stop Time 10:25 Total Visit Minutes 40 Visit Number 19 Precautions Precautions Anterior hip precautions right hip PT-OP-B Current Condition Start: 03/30/21 16:01 Freq: Status: Active Protocol: Document 04/03/21 07:36 MB (Rec: 04/03/21 07:47 MB [id number]) Current Condition History of Current Condition Onset Date 03/22/21 Current Complaints Right sided lateral leg pain History of Current Condition Pt is s/p right THR on 03/22/21 . PMH includes: CAD, cardiomyopathy, DDD, hearing impaired, HLD, HTN, [place] 2008, pre-diabetes, back and neck fusions, hernia repair. Pt reports up to 7/10 lateral right hip pain. He states there is a lump there. He has not had his first post-op visit and will ask Dr. Flynn about this at the follow-up. Pt is using the rolling walker . He is not using a shower chair though he has one. He has two steps and no railing. 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 Prior Treatments and Tests Multiple surgeries and PT in the past for his neck that went well Treatment Goals Patient/Caregiver Goals To get back in shape PT-OP-C Subjective Start: 03/30/21 16:01 Freq: Status: Active Protocol: Document 06/18/21 09:45 MB (Rec: 06/18/21 10:20 MB [id number]) OP-PT Subjective Patient Comments Patient Comments Pt states that he lifted a lot over the weekend and he is paying for it. He points to his thigh. He rolled a ball under his plantar fascia and it helped. PT-OP-G Mobility & Gait Start: 03/30/21 16:01 Freq: Status: Active Protocol: Document 04/03/21 07:36 MB (Rec: 04/03/21 08:11 MB [id number]) OP Gait Assessment Gait Gait Assistance Required: Independent Distance (Feet) 30 Able to Maintain Weight Bearing Status Yes During Gait Assistive Devices Assistive Device None,Front Wheeled Walker Orthotic/Prosthetic Devices or Brace: No Gait Deviations General Gait Pattern Antalgic,Decreased Stride Length,Decreased Feet Clearance,Flexed Trunk,Step-to Gait Factors Limiting Gait Function Factors Limiting Gait Function Decreased Activity Tolerance, Decreased Strength,Limited Range of Motion,Pain Comments Gait Comments Pt arrives gait training with walker too far in front of him . His gait improves with posture and foot clearance and reciprocal gait when he steps closer to the walker. Pt's gait without walker is much slower and more antalgic: decreased step-length and foot clearance, little arm swing on the right and decreased right hip flexion and extension. PT-OP-J Posture/Palpation/Skin Start: 03/30/21 16:01 Freq: Status: Active Protocol: Document 04/03/21 07:36 MB (Rec: 04/03/21 08:11 MB [id number]) Posture Evaluation Comments Posture Comments Posture without AD is poor, flexed and decreased WB through this right LE with increased hip flexion and right LE guarding PT-OP-K Range of Motion Start: 03/30/21 16:01 Freq: Status: Active Protocol: Document 04/03/21 07:36 MB (Rec: 04/03/21 08:13 MB [id number]) Hip Goniometric Range of Motion Hip ROM Limitations Comments Limited passive right hip extension in supine and PT does not manually assess any hip range post-op. His leg does settle into better extension after lying several minutes PT-OP-M Strength Start: 03/30/21 16:01 Freq: Status: Active Protocol: Document 04/03/21 07:36 MB (Rec: 04/03/21 08:14 MB [id number]) Hip Strength Hip Manual Muscle Testing Right Comments Deferred MMT s/p surgery and pain Left Flexion (L2) 5 Normal Abduction 5 Normal Knee Strength Knee Manual Muscle Testing Right Comments Deferred MMT s/p right hip surgery and pain Left Flexion (S2) 4 Good Extension (L3) 5 Normal Ankle/Foot Strength Ankle and Foot Manual Muscle Testing Bilateral Dorsiflexion (L4) 5 Normal Toe Strength Toe Manual Muscle Testing Left Great Toe Extension 3+ Fair+ Right Great Toe Extension 3+ Fair+ PT-OP-Q Treatments Start: 03/30/21 16:01 Freq: Status: Active Protocol: Document 06/18/21 09:45 MB (Rec: 06/18/21 10:20 MB [id number]) Cardio Equipment Bicycle (Upright) Duration (Minutes) 10 Resistance 9-11 Seat Position 8 Therapeutic Exercises Sitting Exercises Rolling pin massage Side right Comments See saw motion along vastus lateralis Standing Exercises Racquet ball massage TFL and glutes Side right Comments TFL and hip rotators Tandem standing Side bilateral Comments Corner to his back, challenging for pt Crab walking with band Side bilateral Comments Level 2 band around ankles Manual Therapy Treatment Other Other Manual Treatments Pt supine: positional release right rectus femoris and vastus lateralis anterior and posterior surfaces PT-OP-R Modalities Start: 04/06/21 13:54 Freq: Status: Active Protocol: Document 04/06/21 12:03 MA (Rec: 04/06/21 14:00 MA [id number]) Hot Pack/Cold Pack Treatment Cold Pack Location Ant. R hip Patient Position Hooklying Treatment Duration (minutes) 15 Patient Tolerance Good PT-OP-T Assessment and Plan Start: 03/30/21 16:01 Freq: Status: Active Protocol: Document 06/18/21 09:45 MB (Rec: 06/18/21 10:20 MB [id number]) Physical Therapy Assessment Rehab Potential Rehabilitation Potential Good Evaluation Complexity Number of Personal Factors/Comorbidities 1-2 Number of Body Systems Impaired 1-2 Clinical Presentation at Evaluation Stable Impairments Impairments Activity Tolerance,Balance, Edema,Functional Activities, Functional Mobility,Gait, Integument,Pain,Posture,ROM, Soft Tissue Mobility,Strength, Transfers Other Concerns Fall Risk Yes Goals 5 Skilled Nursing Goal (LTG) Pt will perform progressive HEP with I including balance, flexibility, strengthening and gait exercises to improve overall mobility and I by 07/11. 05/10/21: Anterior hip stretch with leg straight, pelvic realignment exercises, abdominal drawing in, bridge with band around knees and clam in hook lying, sitting LAQ, ankle eversion and DF and clam in sitting with band LTG Duration 8 weeks 4 Skilled Nursing Goal (LTG) Pt will perform WNLs on a standardized balance test to improve safety by 07/11/21. 05/25/21: FGA score is 26/30 which is normal 05/10/21: Deferred testing d/t hip pain after 6MWT LTG Duration Met 3 Loan Closer Goal (LTG) Pt will gait train at least 1400 feet without AD in 6 minutes to improve community ambulation by 07/11/21. 05/10/21: Pt gait trains 1304 feet in 6 minutes with antalgic gait, favoring the right LE with decreased equal step-length and foot clearance . Pt reports 4/10 pain in right hip. LTG Duration 8 weeks 2 Skilled Nursing Goal (LTG) Pt will present with B hip flexion and abduction and knee flexion and extension strength to 5/5 to improve gait and transfers by 07/11/21. 05/10/21: Deferred MMT today d/ t increased right hip pain before and during treatment LTG Duration 8 weeks 1 Impairment LEF reflects 83.75% impairment on eval Loan Closer Goal (LTG) Pt will present with an improved LEF score to reflect no more than 30% functional impairment by 07/11/21. 05/10/21: LEF score reflects 41 .25% impairment LTG Duration 8 weeks Assessment Summary Assessment Pt reports that the arches of his feet are a lot better after working on them with a small ball and this assists with ability to participate with exercises. Physical Therapy Plan Frequency and Duration Frequency of Treatment 2x/Week Duration of Treatment 8 weeks Plan of Care Start Date 05/10/21 Plan of Care End Date 07/11/21 Therapeutic Interventions Therapeutic Interventions Balance Training,Canalithic Repositioning,Gait Training, Home Exercise Program,Joint Mobilizations,Manual Therapy, Neuromuscular Re-education, Patient/Caregiver Education, Self-Care/Home Management,Soft Tissue Mobilization,Taping, Therapeutic Activities, Therapeutic Exercises Modalities Cold Pack/Ice Massage,Hot Packs Next Visit Focus/Plan Next Note Type Progress Note Next Visit Plan PNF side lying
--- NOTE | 2021-06-21 14:10 | PT.OTN ---
Current Diagnoses Unilateral primary osteoarthritis, right hip (06/21/21) Physical Therapy Treatment Note PT-OP-A Visit Information Start: 03/30/21 16:01 Freq: Status: Active Protocol: Document 06/21/21 09:45 MB (Rec: 06/21/21 10:31 MB [id number]) Out-Patient Physical Therapy Visit Information Visit Information Visit Type Progress Note Visit Note Visit Start Time 09:45 Visit Stop Time 10:30 Total Visit Minutes 45 Visit Number 20 Precautions Precautions Anterior hip precautions right hip PT-OP-B Current Condition Start: 03/30/21 16:01 Freq: Status: Active Protocol: Document 04/03/21 07:36 MB (Rec: 04/03/21 07:47 MB [id number]) Current Condition History of Current Condition Onset Date 03/22/21 Current Complaints Right sided lateral leg pain History of Current Condition Pt is s/p right THR on 03/22/21 . PMH includes: CAD, cardiomyopathy, DDD, hearing impaired, HLD, HTN, [place] 2009, pre-diabetes, back and neck fusions, hernia repair. Pt reports up to 7/10 lateral right hip pain. He states there is a lump there. He has not had his first post-op visit and will ask Dr. Flynn about this at the follow-up. Pt is using the rolling walker . He is not using a shower chair though he has one. He has two steps and no railing. 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 Prior Treatments and Tests Multiple surgeries and PT in the past for his neck that went well Treatment Goals Patient/Caregiver Goals To get back in shape PT-OP-C Subjective Start: 03/30/21 16:01 Freq: Status: Active Protocol: Document 06/21/21 09:45 MB (Rec: 06/21/21 10:31 MB [id number]) OP-PT Subjective Patient Comments Patient Comments Pt states that he overdid it yesterday and the day before. 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 PT-OP-G Mobility & Gait Start: 03/30/21 16:01 Freq: Status: Active Protocol: Document 04/03/21 07:36 MB (Rec: 04/03/21 08:11 MB [id number]) OP Gait Assessment Gait Gait Assistance Required: Independent Distance (Feet) 30 Able to Maintain Weight Bearing Status Yes During Gait Assistive Devices Assistive Device None,Front Wheeled Walker Orthotic/Prosthetic Devices or Brace: No Gait Deviations General Gait Pattern Antalgic,Decreased Stride Length,Decreased Feet Clearance,Flexed Trunk,Step-to Gait Factors Limiting Gait Function Factors Limiting Gait Function Decreased Activity Tolerance, Decreased Strength,Limited Range of Motion,Pain Comments Gait Comments Pt arrives gait training with walker too far in front of him . His gait improves with posture and foot clearance and reciprocal gait when he steps closer to the walker. Pt's gait without walker is much slower and more antalgic: decreased step-length and foot clearance, little arm swing on the right and decreased right hip flexion and extension. PT-OP-J Posture/Palpation/Skin Start: 03/30/21 16:01 Freq: Status: Active Protocol: Document 04/03/21 07:36 MB (Rec: 04/03/21 08:11 MB [id number]) Posture Evaluation Comments Posture Comments Posture without AD is poor, flexed and decreased WB through this right LE with increased hip flexion and right LE guarding PT-OP-K Range of Motion Start: 03/30/21 16:01 Freq: Status: Active Protocol: Document 04/03/21 07:36 MB (Rec: 04/03/21 08:13 MB [id number]) Hip Goniometric Range of Motion Hip ROM Limitations Comments Limited passive right hip extension in supine and PT does not manually assess any hip range post-op. His leg does settle into better extension after lying several minutes PT-OP-M Strength Start: 03/30/21 16:01 Freq: Status: Active Protocol: Document 04/03/21 07:36 MB (Rec: 04/03/21 08:14 MB [id number]) Hip Strength Hip Manual Muscle Testing Right Comments Deferred MMT s/p surgery and pain Left Flexion (L2) 5 Normal Abduction 5 Normal Knee Strength Knee Manual Muscle Testing Right Comments Deferred MMT s/p right hip surgery and pain Left Flexion (S2) 4 Good Extension (L3) 5 Normal Ankle/Foot Strength Ankle and Foot Manual Muscle Testing Bilateral Dorsiflexion (L4) 5 Normal Toe Strength Toe Manual Muscle Testing Left Great Toe Extension 3+ Fair+ Right Great Toe Extension 3+ Fair+ PT-OP-Q Treatments Start: 03/30/21 16:01 Freq: Status: Active Protocol: Document 06/21/21 09:45 MB (Rec: 06/21/21 10:31 MB [id number]) Cardio Equipment Recumbent Elliptical (Biodex) Duration (Minutes) 10 Resistance 8 Other UEs and LEs Gait Training Gait Activity 6MWT Comments Much improved distance today, see findings under gait goal. Pt con't with functional leg length change and right heel and lateral leg discomfort and so added lift, see comments walking Comments PT adds 1/16th full-length cork to right shoe given functional leg length difference with gait and he WBs better on the left and con 't with heel strike on the right. He states he feels crooked and pelvis is aligned in standing. Ed pt to remove if increases pain which it does not with PT. Self-Care/Home Management Treatment Education Other Education Educated pt in benefits of pelvic realignment exercises to address functional leg length changes that occur with antalgic gait and pt c/o right ankle/tendon pain. He is wearing inserts and reports old plantar fascia issues. Told pt that he can take out core liner (1/16th inch) from right shoe if it increases pain and that his gait and pelvic height is much better with it today. PT-OP-R Modalities Start: 04/06/21 13:54 Freq: Status: Active Protocol: Document 04/06/21 12:03 MA (Rec: 04/06/21 14:00 MA [id number]) Hot Pack/Cold Pack Treatment Cold Pack Location Ant. R hip Patient Position Hooklying Treatment Duration (minutes) 15 Patient Tolerance Good PT-OP-T Assessment and Plan Start: 03/30/21 16:01 Freq: Status: Active Protocol: Document 06/21/21 09:45 MB (Rec: 06/21/21 10:31 MB [id number]) Physical Therapy Assessment Rehab Potential Rehabilitation Potential Good Evaluation Complexity Number of Personal Factors/Comorbidities 1-2 Number of Body Systems Impaired 1-2 Clinical Presentation at Evaluation Stable Impairments Impairments Activity Tolerance,Balance, Edema,Functional Activities, Functional Mobility,Gait, Integument,Pain,Posture,ROM, Soft Tissue Mobility,Strength, Transfers Other Concerns Fall Risk Yes Goals 5 Fci Goal (LTG) Pt will perform progressive HEP with I including balance, flexibility, strengthening and gait exercises to improve overall mobility and I by . 06/21/21: Anterior hip stretch with leg straight, pelvic realignment exercises, abdominal drawing in, bridge with band around knees and clam in hook lying, sitting LAQ, ankle eversion and DF and clam in sitting with band, tandem standing, standing strengthening, quad rolling and plantar massage with ball LTG Duration 1 week 4 Fci Goal (LTG) Pt will perform WNLs on a standardized balance test to improve safety by 07/11/21. 05/25/21: FGA score is 26/30 which is normal 05/10/21: Deferred testing d/t hip pain after 6MWT LTG Duration Met 3 Director Business Travel Goal (LTG) Pt will gait train at least 1400 feet without AD in 6 minutes to improve community ambulation by 07/11/21. 06/21/21: Pt gait trains 1582 feet in 6 minutes with antalgic gait, favoring the right LE with decreased equal step-length and foot clearance . Pt will not rate pain when asked. Functionally, his right leg walks shorter than the left. See gait comments for further comments about today's treatment. LTG Duration Met 2 Director Business Travel Goal (LTG) Pt will present with B hip flexion and abduction and knee flexion and extension strength to 5/5 to improve gait and transfers by 06/29/21. 06/21/21: B hip flexion, knee flexion and extension 5/5. B hip abduction 4/5 LTG Duration 1 week 1 Impairment LEF reflects 83.75% impairment on eval Director Business Travel Goal (LTG) Pt will present with an improved LEF score to reflect no more than 30% functional impairment by 07/11/21. 06/21/21: LEF score reflects 30 % impairment LTG Duration Met Assessment Summary Assessment Pt has met several goals since starting PT and these include gait distance, LEF and balance goals. He con't with antalgic gait pattern that does improve with 1/16th inch full-length cork added to right shoe today. Ed pt to take it out if it bothers him. He has ongoing right heel/ tendon pain complaints that affect his gait pattern. Anticipate 2 more PT treatments for PNF, manual work and exercise review and then d/c PT. Pt con't to report he overdid it and this has been a barrier to PT. Physical Therapy Plan Frequency and Duration Frequency of Treatment 2x/Week Duration of Treatment 1 weeks Plan of Care Start Date 06/21/21 Plan of Care End Date 06/29/21 Therapeutic Interventions Therapeutic Interventions Balance Training,Canalithic Repositioning,Gait Training, Home Exercise Program,Joint Mobilizations,Manual Therapy, Neuromuscular Re-education, Patient/Caregiver Education, Self-Care/Home Management,Soft Tissue Mobilization,Taping, Therapeutic Activities, Therapeutic Exercises Modalities Cold Pack/Ice Massage,Hot Packs Next Visit Focus/Plan Next Note Type Treatment Note Next Visit Plan PNF side lying
--- NOTE | 2021-06-21 14:10 | PT.OPPOC ---
Physical, Occupational & Speech Therapy At Located Within [facility] Current Diagnoses Unilateral primary osteoarthritis, right hip (06/21/21) Visit Care Team Role Provider Type Mamta Londono MD Primary Care Provider Physician Specialty: Family Practice Address: [address] [place] [address], [facility] [place], [address] Email: [email or web address] Flynn MD Attending Provider Physician Referring Provider Specialty: Orthopedic Surgery Address: [address] [place] [address], [id number] Email: [email or web address] Plan Of Care PT-OP-T Assessment and Plan Start: 03/30/21 16:01 Freq: Status: Active Protocol: Document 06/21/21 09:45 MB (Rec: 06/21/21 10:31 MB [id number]) Physical Therapy Assessment Rehab Potential Rehabilitation Potential Good Evaluation Complexity Number of Personal Factors/Comorbidities 1-2 Number of Body Systems Impaired 1-2 Clinical Presentation at Evaluation Stable Impairments Impairments Activity Tolerance,Balance, Edema,Functional Activities, Functional Mobility,Gait, Integument,Pain,Posture,ROM, Soft Tissue Mobility,Strength, Transfers Other Concerns Fall Risk Yes Goals 5 Longterm Goal (LTG) Pt will perform progressive HEP with I including balance, flexibility, strengthening and gait exercises to improve overall mobility and I by . 06/21/21: Anterior hip stretch with leg straight, pelvic realignment exercises, abdominal drawing in, bridge with band around knees and clam in hook lying, sitting LAQ, ankle eversion and DF and clam in sitting with band, tandem standing, standing strengthening, quad rolling and plantar massage with ball LTG Duration 1 week 4 Longterm Goal (LTG) Pt will perform WNLs on a standardized balance test to improve safety by 07/11/21. 05/25/21: FGA score is 26/30 which is normal 05/10/21: Deferred testing d/t hip pain after 6MWT LTG Duration Met 3 Longterm Goal (LTG) Pt will gait train at least 1400 feet without AD in 6 minutes to improve community ambulation by 07/11/21. 06/21/21: Pt gait trains 1582 feet in 6 minutes with antalgic gait, favoring the right LE with decreased equal step-length and foot clearance . Pt will not rate pain when asked. Functionally, his right leg walks shorter than the left. See gait comments for further comments about today's treatment. LTG Duration Met 2 Oss Architect Goal (LTG) Pt will present with B hip flexion and abduction and knee flexion and extension strength to 5/5 to improve gait and transfers by 06/29/21. 06/21/21: B hip flexion, knee flexion and extension 5/5. B hip abduction 4/5 LTG Duration 1 week 1 Impairment LEF reflects 83.75% impairment on eval Oss Architect Goal (LTG) Pt will present with an improved LEF score to reflect no more than 30% functional impairment by 07/11/21. 06/21/21: LEF score reflects 30 % impairment LTG Duration Met Assessment Summary Assessment Pt has met several goals since starting PT and these include gait distance, LEF and balance goals. He con't with antalgic gait pattern that does improve with 1/16th inch full-length cork added to right shoe today. Ed pt to take it out if it bothers him. He has ongoing right heel/ tendon pain complaints that affect his gait pattern. Anticipate 2 more PT treatments for PNF, manual work and exercise review and then d/c PT. Pt con't to report he overdid it and this has been a barrier to PT. Physical Therapy Plan Frequency and Duration Frequency of Treatment 2x/Week Duration of Treatment 1 weeks Plan of Care Start Date 06/21/21 Plan of Care End Date 06/29/21 Therapeutic Interventions Therapeutic Interventions Balance Training,Canalithic Repositioning,Gait Training, Home Exercise Program,Joint Mobilizations,Manual Therapy, Neuromuscular Re-education, Patient/Caregiver Education, Self-Care/Home Management,Soft Tissue Mobilization,Taping, Therapeutic Activities, Therapeutic Exercises Modalities Cold Pack/Ice Massage,Hot Packs Next Visit Focus/Plan Next Note Type Treatment Note Next Visit Plan PNF side lying Plan of Care Dates Plan of Care Start Date 06/21/21 Plan of Care End Date 06/29/21 Electronically Signed by: Ria Lewis, PT 06/21/21 [id number] Please Sign and Return: I have reviewed this Plan of Care and certify that the skilled therapy services above are required to meet the patient?s needs. Physician Signature Date Printed Name and Credentials Clinical Instructor Signature Printed Name and Credentials
--- NOTE | 2021-06-25 10:25 | PT.OTN ---
Current Diagnoses Unilateral primary osteoarthritis, right hip (06/25/21) Physical Therapy Treatment Note PT-OP-A Visit Information Start: 03/30/21 16:01 Freq: Status: Active Protocol: Document 06/25/21 09:45 MB (Rec: 06/25/21 10:09 MB [id number]) Out-Patient Physical Therapy Visit Information Visit Information Visit Type Treatment Note Visit Start Time 09:45 Visit Stop Time 10:25 Total Visit Minutes 40 Visit Number 21 Precautions Precautions Anterior hip precautions right hip PT-OP-B Current Condition Start: 03/30/21 16:01 Freq: Status: Active Protocol: Document 04/03/21 07:36 MB (Rec: 04/03/21 07:47 MB [id number]) Current Condition History of Current Condition Onset Date 03/22/21 Current Complaints Right sided lateral leg pain History of Current Condition Pt is s/p right THR on 03/22/21 . PMH includes: CAD, cardiomyopathy, DDD, hearing impaired, HLD, HTN, [place] 2009, pre-diabetes, back and neck fusions, hernia repair. Pt reports up to 7/10 lateral right hip pain. He states there is a lump there. He has not had his first post-op visit and will ask Dr. Flynn about this at the follow-up. Pt is using the rolling walker . He is not using a shower chair though he has one. He has two steps and no railing. 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 Prior Treatments and Tests Multiple surgeries and PT in the past for his neck that went well Treatment Goals Patient/Caregiver Goals To get back in shape PT-OP-C Subjective Start: 03/30/21 16:01 Freq: Status: Active Protocol: Document 06/25/21 09:45 MB (Rec: 06/25/21 10:09 MB [id number]) OP-PT Subjective Patient Comments Patient Comments Pt states that nothing is new. PT-OP-G Mobility & Gait Start: 03/30/21 16:01 Freq: Status: Active Protocol: Document 04/03/21 07:36 MB (Rec: 04/03/21 08:11 MB [id number]) OP Gait Assessment Gait Gait Assistance Required: Independent Distance (Feet) 30 Able to Maintain Weight Bearing Status Yes During Gait Assistive Devices Assistive Device None,Front Wheeled Walker Orthotic/Prosthetic Devices or Brace: No Gait Deviations General Gait Pattern Antalgic,Decreased Stride Length,Decreased Feet Clearance,Flexed Trunk,Step-to Gait Factors Limiting Gait Function Factors Limiting Gait Function Decreased Activity Tolerance, Decreased Strength,Limited Range of Motion,Pain Comments Gait Comments Pt arrives gait training with walker too far in front of him . His gait improves with posture and foot clearance and reciprocal gait when he steps closer to the walker. Pt's gait without walker is much slower and more antalgic: decreased step-length and foot clearance, little arm swing on the right and decreased right hip flexion and extension. PT-OP-J Posture/Palpation/Skin Start: 03/30/21 16:01 Freq: Status: Active Protocol: Document 04/03/21 07:36 MB (Rec: 04/03/21 08:11 MB [id number]) Posture Evaluation Comments Posture Comments Posture without AD is poor, flexed and decreased WB through this right LE with increased hip flexion and right LE guarding PT-OP-K Range of Motion Start: 03/30/21 16:01 Freq: Status: Active Protocol: Document 04/03/21 07:36 MB (Rec: 04/03/21 08:13 MB [id number]) Hip Goniometric Range of Motion Hip ROM Limitations Comments Limited passive right hip extension in supine and PT does not manually assess any hip range post-op. His leg does settle into better extension after lying several minutes PT-OP-M Strength Start: 03/30/21 16:01 Freq: Status: Active Protocol: Document 04/03/21 07:36 MB (Rec: 04/03/21 08:14 MB [id number]) Hip Strength Hip Manual Muscle Testing Right Comments Deferred MMT s/p surgery and pain Left Flexion (L2) 5 Normal Abduction 5 Normal Knee Strength Knee Manual Muscle Testing Right Comments Deferred MMT s/p right hip surgery and pain Left Flexion (S2) 4 Good Extension (L3) 5 Normal Ankle/Foot Strength Ankle and Foot Manual Muscle Testing Bilateral Dorsiflexion (L4) 5 Normal Toe Strength Toe Manual Muscle Testing Left Great Toe Extension 3+ Fair+ Right Great Toe Extension 3+ Fair+ PT-OP-Q Treatments Start: 03/30/21 16:01 Freq: Status: Active Protocol: Document 06/25/21 09:45 MB (Rec: 06/25/21 10:09 MB [id number]) Cardio Equipment Recumbent Elliptical (Biodex) Duration (Minutes) 10 Resistance 8 Other UEs and LEs Manual Therapy Treatment Other Other Manual Treatments B side lying: STM and positional release B TFL, QL, vastus lateralis and thoracolumbar paraspinals Neuro Re-Education Treatment Balance Activities PNF Comments B side lying: PT manual and verbal assistance for pelvis, hip, knee and foot to help gait mechanics. Movements include hip and knee flexion and extension, hip rotation and ankle DF and PF PT-OP-R Modalities Start: 04/06/21 13:54 Freq: Status: Active Protocol: Document 04/06/21 12:03 MA (Rec: 04/06/21 14:00 MA [id number]) Hot Pack/Cold Pack Treatment Cold Pack Location Ant. R hip Patient Position Hooklying Treatment Duration (minutes) 15 Patient Tolerance Good PT-OP-T Assessment and Plan Start: 03/30/21 16:01 Freq: Status: Active Protocol: Document 06/25/21 09:45 MB (Rec: 06/25/21 10:09 MB [id number]) Physical Therapy Assessment Rehab Potential Rehabilitation Potential Good Evaluation Complexity Number of Personal Factors/Comorbidities 1-2 Number of Body Systems Impaired 1-2 Clinical Presentation at Evaluation Stable Impairments Impairments Activity Tolerance,Balance, Edema,Functional Activities, Functional Mobility,Gait, Integument,Pain,Posture,ROM, Soft Tissue Mobility,Strength, Transfers Other Concerns Fall Risk Yes Goals 5 Glass Blowing Lathe Operator Goal (LTG) Pt will perform progressive HEP with I including balance, flexibility, strengthening and gait exercises to improve overall mobility and I by . 06/21/21: Anterior hip stretch with leg straight, pelvic realignment exercises, abdominal drawing in, bridge with band around knees and clam in hook lying, sitting LAQ, ankle eversion and DF and clam in sitting with band, tandem standing, standing strengthening, quad rolling and plantar massage with ball LTG Duration 1 week 2 Glass Blowing Lathe Operator Goal (LTG) Pt will present with B hip flexion and abduction and knee flexion and extension strength to 5/5 to improve gait and transfers by 06/29/21. 06/21/21: B hip flexion, knee flexion and extension 5/5. B hip abduction 4/5 LTG Duration 1 week Assessment Summary Assessment Pt tolerates PNF and manual work well today. He will con't with HEP. Anticipate d/c next treatment date. Physical Therapy Plan Frequency and Duration Frequency of Treatment 2x/Week Duration of Treatment 1 weeks Plan of Care Start Date 06/21/21 Plan of Care End Date 06/29/21 Therapeutic Interventions Therapeutic Interventions Balance Training,Canalithic Repositioning,Gait Training, Home Exercise Program,Joint Mobilizations,Manual Therapy, Neuromuscular Re-education, Patient/Caregiver Education, Self-Care/Home Management,Soft Tissue Mobilization,Taping, Therapeutic Activities, Therapeutic Exercises Modalities Cold Pack/Ice Massage,Hot Packs Next Visit Focus/Plan Next Note Type Discharge Summary
--- NOTE | 2021-06-28 10:25 | PT.OTN ---
Current Diagnoses Unilateral primary osteoarthritis, right hip (06/28/21) Physical Therapy Treatment Note PT-OP-A Visit Information Start: 03/30/21 16:01 Freq: Status: Active Protocol: Document 06/28/21 09:41 MB (Rec: 06/28/21 10:25 MB [id number]) Out-Patient Physical Therapy Visit Information Visit Information Visit Type Treatment Note Visit Start Time 09:41 Visit Stop Time 10:21 Total Visit Minutes 40 Visit Number 22 Precautions Precautions Anterior hip precautions right hip PT-OP-B Current Condition Start: 03/30/21 16:01 Freq: Status: Active Protocol: Document 04/03/21 07:36 MB (Rec: 04/03/21 07:47 MB [id number]) Current Condition History of Current Condition Onset Date 03/22/21 Current Complaints Right sided lateral leg pain History of Current Condition Pt is s/p right THR on 03/22/21 . PMH includes: CAD, cardiomyopathy, DDD, hearing impaired, HLD, HTN, RI 2009, pre-diabetes, back and neck fusions, hernia repair. Pt reports up to 7/10 lateral right hip pain. He states there is a lump there. He has not had his first post-op visit and will ask Dr. Flynn about this at the follow-up. Pt is using the rolling walker . He is not using a shower chair though he has one. He has two steps and no railing. 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 Prior Treatments and Tests Multiple surgeries and PT in the past for his neck that went well Treatment Goals Patient/Caregiver Goals To get back in shape PT-OP-C Subjective Start: 03/30/21 16:01 Freq: Status: Active Protocol: Document 06/28/21 09:41 MB (Rec: 06/28/21 10:25 MB [id number]) OP-PT Subjective Patient Comments Patient Comments Pt states that since starting PT, life's better and his hip' s better. PT-OP-G Mobility & Gait Start: 03/30/21 16:01 Freq: Status: Active Protocol: Document 04/03/21 07:36 MB (Rec: 04/03/21 08:11 MB [id number]) OP Gait Assessment Gait Gait Assistance Required: Independent Distance (Feet) 30 Able to Maintain Weight Bearing Status Yes During Gait Assistive Devices Assistive Device None,Front Wheeled Walker Orthotic/Prosthetic Devices or Brace: No Gait Deviations General Gait Pattern Antalgic,Decreased Stride Length,Decreased Feet Clearance,Flexed Trunk,Step-to Gait Factors Limiting Gait Function Factors Limiting Gait Function Decreased Activity Tolerance, Decreased Strength,Limited Range of Motion,Pain Comments Gait Comments Pt arrives gait training with walker too far in front of him . His gait improves with posture and foot clearance and reciprocal gait when he steps closer to the walker. Pt's gait without walker is much slower and more antalgic: decreased step-length and foot clearance, little arm swing on the right and decreased right hip flexion and extension. PT-OP-J Posture/Palpation/Skin Start: 03/30/21 16:01 Freq: Status: Active Protocol: Document 04/03/21 07:36 MB (Rec: 04/03/21 08:11 MB [id number]) Posture Evaluation Comments Posture Comments Posture without AD is poor, flexed and decreased WB through this right LE with increased hip flexion and right LE guarding PT-OP-K Range of Motion Start: 03/30/21 16:01 Freq: Status: Active Protocol: Document 04/03/21 07:36 MB (Rec: 04/03/21 08:13 MB [id number]) Hip Goniometric Range of Motion Hip ROM Limitations Comments Limited passive right hip extension in supine and PT does not manually assess any hip range post-op. His leg does settle into better extension after lying several minutes PT-OP-M Strength Start: 03/30/21 16:01 Freq: Status: Active Protocol: Document 04/03/21 07:36 MB (Rec: 04/03/21 08:14 MB [id number]) Hip Strength Hip Manual Muscle Testing Right Comments Deferred MMT s/p surgery and pain Left Flexion (L2) 5 Normal Abduction 5 Normal Knee Strength Knee Manual Muscle Testing Right Comments Deferred MMT s/p right hip surgery and pain Left Flexion (S2) 4 Good Extension (L3) 5 Normal Ankle/Foot Strength Ankle and Foot Manual Muscle Testing Bilateral Dorsiflexion (L4) 5 Normal Toe Strength Toe Manual Muscle Testing Left Great Toe Extension 3+ Fair+ Right Great Toe Extension 3+ Fair+ PT-OP-Q Treatments Start: 03/30/21 16:01 Freq: Status: Active Protocol: Document 06/28/21 09:41 MB (Rec: 06/28/21 10:25 MB [id number]) Cardio Equipment Recumbent Elliptical (Biodex) Duration (Minutes) 10 Resistance 9 Other UEs and LEs Manual Therapy Treatment Other Other Manual Treatments B side lying: STM and positional release B TFL, QL, vastus lateralis and thoracolumbar paraspinals Neuro Re-Education Treatment Balance Activities PNF Comments B side lying: PT manual and verbal assistance for pelvis, hip, knee and foot to help gait mechanics. Movements include hip and knee flexion and extension, hip rotation and ankle DF and PF PT-OP-R Modalities Start: 04/06/21 13:54 Freq: Status: Active Protocol: Document 04/06/21 12:03 MA (Rec: 04/06/21 14:00 MA [id number]) Hot Pack/Cold Pack Treatment Cold Pack Location Ant. R hip Patient Position Hooklying Treatment Duration (minutes) 15 Patient Tolerance Good PT-OP-T Assessment and Plan Start: 03/30/21 16:01 Freq: Status: Active Protocol: Document 06/28/21 09:41 MB (Rec: 06/28/21 10:25 MB [id number]) Physical Therapy Assessment Rehab Potential Rehabilitation Potential Good Evaluation Complexity Number of Personal Factors/Comorbidities 1-2 Number of Body Systems Impaired 1-2 Clinical Presentation at Evaluation Stable Impairments Impairments Activity Tolerance,Balance, Edema,Functional Activities, Functional Mobility,Gait, Integument,Pain,Posture,ROM, Soft Tissue Mobility,Strength, Transfers Other Concerns Fall Risk Yes Goals 5 Clinical Nursing Coordinator Goal (LTG) Pt will perform progressive HEP with I including balance, flexibility, strengthening and gait exercises to improve overall mobility and I by . 06/28/21: Pt is performing progressive exercises. LTG Duration Met 2 Clinical Nursing Coordinator Goal (LTG) Pt will present with B hip flexion and abduction and knee flexion and extension strength to 5/5 to improve gait and transfers by 06/29/21. 06/28/21: B hip flexion, knee flexion and extension 5/5. B hip abduction 5/5 LTG Duration Met Assessment Summary Assessment Pt has met balance, gait, LEF, strength and HEP goals since starting PT. He con't to report some right ankle tendon pain at his achilles area that is chronic yet did flare- up after right leg was operated upon. He will follow- up with Dr. Flynn about this. He has maximized OPPT potential at this time. Will d /c PT and pt will con't with HEP. He does tend to overdo it per report and this is a barrier to decreasing pain.
== END 2021-06-28 15:36 | disposition home or self-care (01) ==
LOC: PHYS 09:45
PROVIDERS: PCP Student in an Organized Health Care Education/Training Program; Referring Provider Orthopaedic Surgery; Visit Provider Orthopaedic Surgery
DX: M16.11 Unilateral primary osteoarthritis, right hip (principal)
CPT/HCPCS: 97010; 97110; 97112; 97116; 97140; 97161; 97535

== ENCOUNTER → 2021-09-07 14:20 | Outpatient (CLI) | payer OTHER, MEDICAID, SELFPAY ==
[2021-03-22 13:26] VITALS: BMI 27.1
--- NOTE | 2021-09-07 | DI.MRI.S_ITS ---
PROCEDURE: MR ANKLE RT WO CON INDICATIONS: Short Achilles tendon (acquired), right ankle TECHNIQUE: Noncontrast sagittal T1 spin echo and T2 fast spin echo with fat saturation, axial proton density fast spin echo and T2 fast spin echo with fat saturation, coronal T1 spin echo and T2 fast spin echo with fat saturation through the ankle/hindfoot. COMPARISON: None. FINDINGS: Suboptimal evaluation secondary to scattered susceptibility artifact of unknown etiology Bones and joints: Bones: No marrow contusions or fractures. Coalitions: No hindfoot coalitions. Talar dome: No osteochondral injuries of the talar dome. Other: 1 cm fluid collection seen at the posterior recess of the tibiotalar joint which could be joint fluid versus ganglion/synovial cyst. There is diffuse muscle edema Medial structures: Posterior tibialis: Intact. Xigv-rq-vjqevknl tenosynovitis Flexor digitorum longus: Intact. Zgvo-gi-szdrzryk tenosynovitis Flexor hallucis longus: Intact. Posterior tibial neurovascular bundle: Normal. Deltoid ligament complex: Intact. Spring ligament: Intact. Lateral structures: Anterior talofibular ligament: Intact. Calcaneofibular ligament: Intact. Posterior talofibular ligament: Intact. Anterior tibiofibular ligament: Intact. Posterior tibiofibular ligament: Intact. Intermalleolar ligament: Intact. Tibiofibular syndesmosis: Normal. Peroneus longus: Mild tendinopathy and moderate tenosynovitis. Peroneus brevis: Mild tendinopathy and moderate tenosynovitis Bony peroneal tubercle and retrotrochlear prominence: Normal. Sinus tarsi: Normal. Anterior structures: Tibialis anterior: Intact. Extensor hallucis longus: Intact. Extensor digitorum longus: Intact. Suboptimal evaluation secondary to distortion from artifact. Dorsal talonavicular ligament: Intact. Posterior and plantar structures: Achilles tendon: Mild diffuse tendinopathy including to the level of the musculotendinous junction. Plantar fascia: Intact. Muscles: No abductor digiti quinti muscle atrophy to suggest Joyce neuropathy. IMPRESSION: Diffuse tenosynovitis involving the posterior tibialis, flexor digitorum longus, peroneus longus and peroneus brevis tendons. Diffuse Achilles tendinopathy/low-grade partial tear from the insertion to the level of the musculotendinous junction. Dictated by: Sae Leahc M.D. on 09/07/2021 at 15:31 Approved by: Sae Leach M.D. on 09/07/2021 at 15:43
== END ==
PROVIDERS: PCP Student in an Organized Health Care Education/Training Program; Referring Provider Orthopaedic Surgery; Visit Provider Orthopaedic Surgery
DX: M67.01 Short Achilles tendon (acquired), right ankle (principal); M65.871 Other synovitis and tenosynovitis, right ankle and foot
CPT/HCPCS: 73721

== ENCOUNTER → 2022-03-29 08:04 | Outpatient (CLI) | payer OTHER, MEDICAID, SELFPAY ==
[2021-03-22 13:26] VITALS: BMI 27.1
--- NOTE | 2022-03-29 08:06 | DI.MRI.S_ITS ---
PROCEDURE: MR ABDOMEN WO/W CON INDICATIONS: pancreatic cyst TECHNIQUE: Coronal HASTE, axial 2D FLASH in- and [id number]; axial breath-hold T2 FSE with fat saturation from the hepatic dome to the iliac crests. Oblique coronal thin-slice and radial thick slab HASTE through the biliary system. Dynamic axial VIBE during administration of contrast. Post-contrast coronal VIBE or 2D FLASH with fat saturation from the hepatic dome to the iliac crests. Restricted diffusion weighted imaging and ADC. 20 cc ProHance IV contrast. COMPARISON: [facility], CT, ABDOMEN/PELVIS WITH CONTRAST, 05/17/2016, 10:45. [facility], CT, ABDOMEN/PELVIS WITH CONTRAST, 07/19/2009, 10:36. CT, CT ABDOMEN PELVIS W CON, 05/15/2020, 9:40. FINDINGS: Image quality: Excellent. Pancreas and biliary system: Cystic lesion in the head of the pancreas measuring 1.6 x 1.4 x 1.3 cm, (02/17), previously measured 1.5 x 1 x [address] 05/15/2020. The lesion is bilobed. (More remotely the lesion measured 1.2 x 1 cm in 2015 and 0.4 cm in 2008). No enhancement or restricted diffusion. The lesion may communicate with the pancreatic duct. The pancreatic duct is not dilated. CBD measures 0.4 cm. No intrahepatic biliary ductal dilatation. Solid organs: Liver is normal in size and enhancement. Gallbladder is not distended. No gallstones.. Spleen is normal in size and enhancement. No adrenal nodules. Kidneys are normal in size and enhancement, without hydronephrosis. Nodes and vessels: No retroperitoneal or mesenteric adenopathy by size criteria. Aorta and inferior vena cava are normal in size. Bowel and peritoneum: Unenhanced bowel loops are normal in caliber throughout. No free fluid. Lung bases: No basal pleural effusions. Heart size is normal. Bones and soft tissues: No ventral hernias. Bone marrow is normal in overall signal. IMPRESSION: 1. Bilobed cystic lesion in the head of the pancreas measuring 1.6 cm is mildly increased in size compared to CT April 2020. No suspicious imaging features demonstrated. Recommend follow-up CT or MRI pancreas in 1 year. 2. No pancreatic or biliary ductal dilatation. 3. No gallstones. Dictated by: Oliveiro Chaves M.D. on 03/29/2022 at 10:20 Approved by: Oliverio Chaves M.D. on 03/29/2022 at 10:40
[2022-03-29 10:21] LABS: Hemoglobin 14.2 g/dL (13.5-17.5); Mean Corpuscular HGB Conc 34.6 % (30-36); Mean Corpuscular Hemoglobin 31.2 PG (26-34); Mean Corpuscular Volume 90.1 fL (80-100); Platelet Count 191 X10^3/uL (150-400); Red Blood Cell Count 4.55 X10^6/uL (4.5-5.9); Red Cell Distribution Width 13.1 % (11.6-14.8); White Blood Cell Count 4.9 X10^3/uL (4.5-11.0)
[2022-03-29 10:45] LABS: Alanine Aminotransferase 24 IU/L (<50); Albumin 3.9 g/dL (3.5-5.0); Albumin Globulin Ratio 1.4 (1.0-2.8); Alkaline Phosphatase 61 U/L (38-126); Aspartate Aminotransferase 31 IU/L (17-59); BUN Creatinine Ratio 17.1 (6-22); Bilirubin Total 0.7 mg/dL (0.2-1.3); Blood Urea Nitrogen 13 mg/dL (9-20); Calcium 8.6 mg/dL (8.4-10.2); Carbon Dioxide 26 mmol/L (22-32); Chloride 96 mmol/L (98-107); Cholesterol 151 mg/dL (140-199); Estimated Glomerular Filt Rate > 60 mL/min (>60); Globulin 2.7 g/dL (1.7-4.1); Glucose 108 mg/dL (80-110); HDL Cholesterol 50 mg/dL (40-60); HEMOLYSIS < 15 (0-50); LDL Cholesterol Calculated 86 mg/dL (<100); Lipase 62 U/L (23-300); Potassium 4.9 mmol/L (3.4-5.1); Sodium 129 mmol/L (137-145); Total Protein 6.6 g/dL (6.3-8.2); Triglycerides 74 mg/dL (35-150)
[2022-03-29 10:46] LABS: Hemoglobin A1C% w Est Avg Glu 6.2 % (4.0-6.0)
[2022-03-29 11:10] LABS: TSH w/ Reflex to FT4 0.59 uIU/mL (0.47-4.68)
[2022-03-29 11:11] LABS: Prostate Specific Antigen 1.58 ng/mL (0.10-4.00)
== END ==
PROVIDERS: PCP Internal Medicine; Referring Provider Internal Medicine; Visit Provider Internal Medicine
DX: K86.2 Cyst of pancreas (principal); E78.2 Mixed hyperlipidemia; E87.1 Hypo-osmolality and hyponatremia; I25.10 Atherosclerotic heart disease of native coronary artery without angina pectoris; N13.8 Other obstructive and reflux uropathy; N40.1 Benign prostatic hyperplasia with lower urinary tract symptoms; R73.01 Impaired fasting glucose
CPT/HCPCS: 36415; 74183; 80053; 80061; 83036; 83690; 84153; 84443; 85027

== ENCOUNTER → 2023-03-12 10:45 | Outpatient (CLI) | payer OTHER, MEDICAID, SELFPAY ==
[2021-03-22 13:26] VITALS: BMI 27.1
[2023-03-12 13:06] LABS: Alanine Aminotransferase 32 IU/L (<50); Albumin 4.1 g/dL (3.5-5.0); Albumin Globulin Ratio 1.5 (1.0-2.8); Alkaline Phosphatase 66 U/L (38-126); Aspartate Aminotransferase 32 IU/L (17-59); BUN Creatinine Ratio 14.3 (6-22); Bilirubin Total 0.6 mg/dL (0.2-1.3); Blood Urea Nitrogen 11 mg/dL (9-20); Calcium 8.9 mg/dL (8.4-10.2); Carbon Dioxide 26 mmol/L (22-32); Chloride 96 mmol/L (98-107); Cholesterol 167 mg/dL (140-199); Estimated Glomerular Filt Rate > 60 mL/min (>60); Globulin 2.8 g/dL (1.7-4.1); Glucose 90 mg/dL (80-110); HDL Cholesterol 49 mg/dL (40-60); HEMOLYSIS < 15 (0-50); LDL Cholesterol Calculated 105 mg/dL (<100); Potassium 4.3 mmol/L (3.4-5.1); Sodium 130 mmol/L (137-145); Total Protein 6.9 g/dL (6.3-8.2); Triglycerides 65 mg/dL (35-150)
[2023-03-12 13:31] LABS: Prostate Specific Antigen Scrn 2.19 ng/mL (0.1-4.0)
[2023-03-13 07:36] LABS: Labcorp Hemoglobin (Hb) A1c 6.1 % (4.8-5.6)
== END ==
PROVIDERS: PCP Internal Medicine; Referring Provider Internal Medicine; Visit Provider Internal Medicine
DX: E78.2 Mixed hyperlipidemia (principal); I10 Essential (primary) hypertension; I25.10 Atherosclerotic heart disease of native coronary artery without angina pectoris; Z12.5 Encounter for screening for malignant neoplasm of prostate
CPT/HCPCS: 36415; 80053; 80061; 83036; G0103

== ENCOUNTER → 2023-04-03 08:14 | Outpatient (CLI) | payer OTHER, MEDICAID, SELFPAY ==
[2021-03-22 13:26] VITALS: BMI 27.1
--- NOTE | 2023-04-03 08:15 | DI.MRI.S_ITS ---
PROCEDURE: MR ABDOMEN WO/W CON INDICATIONS: pancreatic cyst follow-up TECHNIQUE: Coronal HASTE, axial 2D FLASH in- and [id number]; axial breath-hold T2 FSE with fat saturation from the hepatic dome to the iliac crests. Oblique coronal thin-slice and radial thick slab HASTE through the biliary system. Dynamic axial VIBE during administration of contrast. Post-contrast coronal VIBE or 2D FLASH with fat saturation from the hepatic dome to the iliac crests. Restricted diffusion weighted imaging and ADC. COMPARISON: [facility], , MR ABDOMEN WO/W CON, 03/29/2022, 8:19. FINDINGS: Image quality: Excellent. Pancreas and biliary system: Cyst in the head of the pancreas measuring 1.4 x 1.1 cm, (03/22), previously 1.6 x 1.4, and more remotely 1.5 x 1 cm. No pancreatic ductal dilatation. Possible side branch pancreatic duct communication. No restricted diffusion. No biliary ductal dilatation. Solid organs: Liver is normal in size and enhancement. Gallbladder is unremarkable. Spleen is normal in size and enhancement. No adrenal nodules. Kidneys are normal in size and enhancement, without hydronephrosis. Nodes and vessels: No retroperitoneal or mesenteric adenopathy by size criteria. Aorta and inferior vena cava are normal in size. Bowel and peritoneum: Unenhanced bowel loops are normal in caliber throughout. No free fluid. Lung bases: No basal pleural effusions. Heart size is normal. Bones and soft tissues: Fat containing umbilical hernia. Bone marrow is normal in overall signal. IMPRESSION: 1. Cyst in the head of the pancreas measuring 1.4 cm is not significantly changed in size compared to 2019. Recommend follow-up CT or MRI in 2 years. 2. No pancreatic or biliary ductal dilatation. Dictated by: Oliverio Chaves M.D. on 04/03/2023 at 10:06 Approved by: Oliverio Chaves M.D. on 04/03/2023 at 10:18
== END ==
PROVIDERS: PCP Internal Medicine; Referring Provider Internal Medicine; Visit Provider Internal Medicine
DX: K86.2 Cyst of pancreas (principal)
CPT/HCPCS: 74183; A9579

== ENCOUNTER → 2023-07-01 15:27 | Outpatient (CLI) | payer OTHER, SELFPAY ==
[2021-03-22 13:26] VITALS: BMI 27.1
[2023-07-01 16:09] LABS: Hemoglobin 10.1 g/dL (13.5-17.5); Mean Corpuscular HGB Conc 34.8 % (30-36); Mean Corpuscular Volume 91.8 fL (80-100); Platelet Count 205 X10^3/uL (150-400); Red Blood Cell Count 3.16 X10^6/uL (4.5-5.9); Red Cell Distribution Width 13.1 % (11.6-14.8); White Blood Cell Count 8.1 X10^3/uL (4.5-11.0)
[2023-07-01 16:26] LABS: HEMOLYSIS < 15 (0-50); Iron 38 ug/dL (49-181)
[2023-07-01 16:30] LABS: Alanine Aminotransferase 29 IU/L (<50); Albumin 3.7 g/dL (3.5-5.0); Albumin Globulin Ratio 1.5 (1.0-2.8); Alkaline Phosphatase 44 U/L (38-126); Aspartate Aminotransferase 33 IU/L (17-59); BUN Creatinine Ratio 21.5 (6-22); Bilirubin Total 0.3 mg/dL (0.2-1.3); Blood Urea Nitrogen 17 mg/dL (9-20); Calcium 8.6 mg/dL (8.4-10.2); Carbon Dioxide 27 mmol/L (22-32); Chloride 99 mmol/L (98-107); Estimated Glomerular Filt Rate > 60 mL/min (>60); Globulin 2.4 g/dL (1.7-4.1); Glucose 110 mg/dL (80-110); HEMOLYSIS < 15 (0-50); Potassium 4.2 mmol/L (3.4-5.1); Sodium 131 mmol/L (137-145); Total Protein 6.1 g/dL (6.3-8.2)
[2023-07-01 16:36] LABS: Percent Iron Saturation 12 % (20-50); Total Iron Binding Capacity 329 ug/dL (261-462); Transferrin 224 mg/dL (206-381)
[2023-07-01 17:02] LABS: Ferritin 18 ng/mL (18-464)
== END ==
PROVIDERS: PCP Internal Medicine; Referring Provider Internal Medicine; Visit Provider Internal Medicine
DX: I95.9 Hypotension, unspecified (principal); K92.1 Melena
CPT/HCPCS: 36415; 80053; 82728; 83540; 83550; 85027

== ENCOUNTER 2023-07-08 13:44 | Day surgery (SDC) | payer OTHER, SELFPAY ==
[2021-03-22 13:26] VITALS: BMI 27.1
--- NOTE | 2023-07-08 | PATH_ITS ---
[facility] Accession Number: [id number] No. of containers..01 Tissue . 01 Material submitted: . gastrointestinal site - GASTRIC BIOPSY . 01 Diagnosis: Gastric, Biopsy: Gastric mucosa with mild chronic inflammation. No Helicobacter pylori organisms identified on immunohistochemical evaluation. No intestinal metaplasia, dysplasia, or malignancy identified. V 07/16/2023 1239 Local . 01 Electronically signed: . Christy Montalvo MD, Pathologist NPI- [id number] . 01 Gross description: . GASTRIC BIOPSY: Received in formalin is 2 fragment(s) of maldonado, soft tissue measuring 0.3 x 0.2 x 0.2 cm to 0.2 x 0.1 x 0.1 cm submitted entirely in 1 cassette(s) /AA 07/10/2023 2349 Local . 01 Microscopic: . An immunohistochemical stain was performed to evaluate for Helicobacter organisms and is negative. The control stain showed appropriate reactivity. . * This test was developed and its performance characteristics determined by [facility]. It has not been cleared or approved by the U.S. Food and Drug Administration. The FDA has determined that such clearance or approval is not necessary. This test is used for clinical purposes. It should not be regarded as investigational or for research. . 01 Pathologist provided ICD-10: K29.00 . 01 CPT . 999168, G13734 Specimen Comment: A courtesy copy of this report has been sent to [phone] Performed at: 01 [facility] [address] [place] [address], [place], [place] [id number] MD Donato Mascorro MD Phone: [phone]
[2023-07-08 14:04] VITALS: BP 133/68; PULSE 56; RESP 16; TEMP 36.3; O2SAT 98; BMI 25.3
[2023-07-08] MEDS: LACTATED RINGERS 1,000 ML 200 ML IV (14:15)
--- NOTE | 2023-07-08 14:44 | PM.HP.1 ---
History of Present Illness History of Present Illness Date Patient Seen: 07/08/23 Time Patient Seen: 14:44 Chief complaint: EGD & Colonoscopy w/poss bx's Narrative: 62-year-old man with melena here for diagnostic esophagoduodenoscopy and colonoscopy. Recently taking a large amount of ibuprofen and developed melena. He has been taking omeprazole and it is discontinued the ibuprofen stools have returned to normal. No abdominal pain nausea vomiting unintentional weight loss. [facility] Medical History Abdominal pain Ankle pain (~2009) BPH w urinary obs/LUTS CAD (coronary artery disease) Cardiomyopathy Chronic hyponatremia Coronary artery disease DDD (degenerative disc disease) Diverticulosis Essential hypertension Hearing impaired History of heart attack (~2009) HLD (hyperlipidemia) HTN (hypertension) Impaired fasting glucose Lumbar radiculopathy Melanoma Mixed hyperlipidemia Myocardial infarction (~2008) Pancreatic cyst (~2019) Pre-diabetes Primary osteoarthritis involving multiple joints Prinzmetal angina Rosacea Spinal stenosis Wears glasses Surgical History Anesthesia History of back surgery History of fusion of cervical spine History of hip replacement (~2020) Hx of right inguinal hernia repair (06/07/20) Family History Father Colon cancer Heart disease Mother Stroke Social History marital status: household members: spouse Smoking Status: Never smoker alcohol intake: former Meds Home Medications and Allergies Home Medications Medication Instructions Recorded Confirmed Type nitroglycerin 0.4 mg sublingual 0.4 mg sublingual Q5M PRN Chest 05/25/20 07/01/23 History tablet (Nitrostat) Pain acetaminophen 500 mg capsule 1,000 - 1,500 mg PO TID PRN Pain 03/12/21 07/01/23 History metronidazole 0.75 % topical cream 1 applic topical BID #45 grams 08/08/22 07/01/23 Rx sodium,potassium,mag sulfates 17.5 See Rx Instructions PO .COMPLEX 07/02/23 Rx gram-3.13 gram-1.6 gram oral soln #354 mL (Suprep Bowel Prep Kit) Allergies Allergy/AdvReac Type Severity Reaction Status Date / Time Sulfa (Sulfonamide Allergy Severe Hives, Verified 07/01/23 14:21 Antibiotics) nausea [SULFA (SULFONAMIDE ANTIBIOTICS)] indomethacin AdvReac Mild GI Upset, Verified 07/01/23 14:21 makes my bowels hurt meloxicam AdvReac Mild GI Upset, Verified 07/01/23 14:21 makes my bowels hurt Exam Vital Signs (past 8 hours): - 07/08/23 14:04 Temperature 97.4 F L Pulse Rate 56 L Respiratory Rate 16 Blood Pressure 133/68 Pulse Oximetry 98 Oxygen Delivery Method Room Air Oxygen Delivery Method Room Air Narrative Exam Narrative: General adult man alert oriented no acute distress Abdomen soft nontender nondistended Assessment & Plan Assessment and plan (1) Melanoma: Qualifiers: Melanoma location: eyelid including canthus Laterality: left Eyelid: lower Qualified Code(s): C43.122 - Malignant melanoma of left lower eyelid, including canthus Status: Acute Assessment & Plan narrative: 62-year-old man with melena here for diagnostic esophagoduodenoscopy and colonoscopy. Technical details were discussed. Risks, benefits, alternatives explained. Risks including but not limited to myocardial infarction, aspiration, bleeding, pain, missed lesion, incomplete examination, need for further radiographic studies, intestinal perforation, and need for major abdominal surgery were discussed. All questions were answered to their satisfaction, and they are in agreement with this plan.
--- NOTE | 2023-07-08 14:55 | PM.OP.EC ---
Operative Date/Time/Diagnoses Date of procedure: 07/08/23 Time of procedure: 14:55 Pre-op diagnosis: Melena Post-op diagnosis: other (Gastritis) Procedure & Clinicians Study performed: Diagnostic Esophagoduodenoscopy and colonoscopy Same procedure as scheduled: Yes Indications: 62-year-old man with melena here for diagnostic esophagoduodenoscopy and colonoscopy Surgeon: Justen Thayer Procedure Notes Procedure in detail: The history and physical was performed/updated and the patient is ASA class is 2. The procedure was discussed in detail with the patient. Potential risks complications including infection, bleeding, missed diagnosis, perforation, need for surgery, and were explained. Their questions were answered and informed consent was obtained. Patient placed in left lateral decubitus position. Time out was performed. Procedural sedation was administered by Anesthesia. A bite block was placed. the scope was inserted into the mouth and advanced through the esophagus and into the stomach. Stomach had mild gastritis resolving, biopsies were taken with forceps. The pylorus was intubated and the duodenum was normal to the 2nd portion. The scope was withdrawn into the esophagus the Z line was seen at 40 cm from the incisions. There was no Mercado's esophagitis, esophageal masses or strictures. Stomach was desufflated and scope removed. Examination began with a thorough inspection of the perianal area there was no evidence of fissures, fistulae, external hemorrhoids or cutaneous malignancy. The colonoscopy scope was then placed into the anal canal and was advanced to the cecum, which was identified by the ileocecal valve, the appendiceal orifice and the confluence of the taenia. The scope was then slowly withdrawn examining colon thoroughly in all directions, irrigating it of any residual stool. Colon without masses or polyps Moderate diverticulosis The patient tolerated the procedure well. They will be discharged once criteria are met. The prep was of poor quality. The withdrawl time was 7 minutes. Specimen(s): other (Gastric biopsy) Impression: Resolving gastritis Post-procedure Recommendations: Colonscopy in 10 years Plan for aftercare: Omeprazole 20 mg for the next 2 weeks Disposition: same day surgery
[2023-07-08 15:27] VITALS: BP 123/76; PULSE 62; RESP 16; TEMP 36.2; O2SAT 99
[2023-07-08 15:30] VITALS: BP 103/72; PULSE 70; RESP 16; O2SAT 97
[2023-07-08 15:53] VITALS: BP 121/74; PULSE 56; RESP 16; O2SAT 98
== END 2023-07-08 16:00 | disposition home or self-care (01) ==
PROVIDERS: PCP Internal Medicine; Referring Provider Surgery; Visit Provider Surgery
PROC: 0DJ08ZZ Inspection of Upper Intestinal Tract, Via Natural or Artificial Opening Endoscopic (ICD-10-PCS; CPT 43235; principal; 2023-07-08 14:00)
PROC: 0DJD8ZZ Inspection of Lower Intestinal Tract, Via Natural or Artificial Opening Endoscopic (ICD-10-PCS; CPT 45378; 2023-07-08 14:00)
DX: K57.30 Diverticulosis of large intestine without perforation or abscess without bleeding (principal); K29.70 Gastritis, unspecified, without bleeding
CPT/HCPCS: 45378; 43235; 93005; 93010; J2704

== ENCOUNTER → 2023-08-05 10:48 | Outpatient (CLI) | payer OTHER, SELFPAY ==
[2021-03-22 13:26] VITALS: BMI 27.1
[2023-08-05 11:16] LABS: Hematocrit 37.3 % (41-53); Hemoglobin 12.6 g/dL (13.5-17.5); Mean Corpuscular HGB Conc 33.6 % (30-36); Mean Corpuscular Hemoglobin 29.4 PG (26-34); Mean Corpuscular Volume 87.4 fL (80-100); Platelet Count 272 X10^3/uL (150-400); Red Blood Cell Count 4.27 X10^6/uL (4.5-5.9); Red Cell Distribution Width 14.1 % (11.6-14.8); White Blood Cell Count 6.8 X10^3/uL (4.5-11.0)
[2023-08-05 11:27] LABS: HEMOLYSIS < 15 (0-50); Iron 29 ug/dL (49-181)
[2023-08-05 11:40] LABS: Percent Iron Saturation 7 % (20-50); Total Iron Binding Capacity 423 ug/dL (261-462); Transferrin 319 mg/dL (206-381)
[2023-08-05 11:58] LABS: Ferritin 6 ng/mL (18-464)
== END ==
PROVIDERS: PCP Internal Medicine; Referring Provider Internal Medicine; Visit Provider Internal Medicine
DX: E61.1 Iron deficiency (principal); K92.2 Gastrointestinal hemorrhage, unspecified
CPT/HCPCS: 36415; 82728; 83540; 83550; 85027

== ENCOUNTER → 2025-08-08 08:05 | Outpatient (CLI) | payer MEDICARE, SELFPAY ==
[2021-03-22 13:26] VITALS: BMI 27.1
[2025-08-08 08:43] LABS: Hematocrit 46.4 % (41-53); Hemoglobin 15.7 g/dL (13.5-17.5); Mean Corpuscular HGB Conc 33.9 % (30-36); Mean Corpuscular Hemoglobin 31.1 PG (26-34); Mean Corpuscular Volume 91.9 fL (80-100); Platelet Count 204 X10^3/uL (150-400)
[2025-08-08 09:02] LABS: Hemoglobin A1C% w Est Avg Glu 6.2 % (4.0-6.0)
[2025-08-08 09:57] LABS: Alanine Aminotransferase 27 IU/L (<50); Albumin 4.6 g/dL (3.5-5.0); Albumin Globulin Ratio 1.7 (1.0-2.8); Alkaline Phosphatase 74 U/L (38-126); Blood Urea Nitrogen 15 mg/dL (9-20); Calcium 9.8 mg/dL (8.4-10.2); Carbon Dioxide 26 mmol/L (22-32); Chloride 100 mmol/L (98-107); Cholesterol 204 mg/dL (140-199); Estimated Glomerular Filt Rate > 60 mL/min (>60); Globulin 2.7 g/dL (1.7-4.1); Glucose 103 mg/dL (70-99); HDL Cholesterol 68 mg/dL (40-60); HEMOLYSIS 16 (0-50); Potassium 4.6 mmol/L (3.4-5.1); Sodium 133 mmol/L (137-145); Total Protein 7.3 g/dL (6.3-8.2); Triglycerides 96 mg/dL (35-150)
[2025-08-08 10:01] LABS: HEMOLYSIS < 15 (0-50); Iron 79 ug/dL (49-181)
[2025-08-08 10:12] LABS: Percent Iron Saturation 25 % (20-50); Total Iron Binding Capacity 319 ug/dL (261-462); Transferrin 261 mg/dL (206-381)
[2025-08-08 10:28] LABS: Prostate Specific Antigen 3.25 ng/mL (0.10-4.00)
[2025-08-08 10:32] LABS: Ferritin 45 ng/mL (18-464)
== END ==
PROVIDERS: PCP Internal Medicine; Referring Provider Internal Medicine; Visit Provider Internal Medicine
DX: N13.8 Other obstructive and reflux uropathy (principal); R73.01 Impaired fasting glucose; D50.9 Iron deficiency anemia, unspecified; E78.2 Mixed hyperlipidemia; N40.1 Benign prostatic hyperplasia with lower urinary tract symptoms
CPT/HCPCS: 36415; 80053; 80061; 82728; 83036; 83540; 83550; 84153; 85027

== ENCOUNTER → 2025-08-19 07:12 | Outpatient (CLI) | payer MEDICARE, SELFPAY ==
[2021-03-22 13:26] VITALS: BMI 27.1
--- NOTE | 2025-08-19 07:13 | DI.MRI.S_ITS ---
PROCEDURE: MR ABDOMEN WO/W CON INDICATIONS: pancreatic cyst TECHNIQUE: Coronal HASTE, axial 2D FLASH in- and [id number]; axial breath-hold T2 FSE with fat saturation from the hepatic dome to the iliac crests. Oblique coronal thin- slice and radial thick slab HASTE through the biliary system. Dynamic axial VIBE during administration of contrast. Post-contrast coronal VIBE or 2D FLASH with fat saturation from the hepatic dome to the iliac crests. Optional diffusion weighted imaging and ADC may be performed. COMPARISON: [facility], , MR ABDOMEN WO/W CON, 04/03/2023, 8:26. FINDINGS: Image quality: Diagnostic Lower chest: Lung bases appear unremarkable. Normal heart size. Liver: Unremarkable Gallbladder and biliary system: Unremarkable, nondilated Pancreas: No ductal dilation. Multiloculated pancreatic head cystic lesion measures 2.1 x 1.5 cm (3/15). This is similar when remeasured dating back to 2021. No enhancing nodular portion identified. Spleen: Nonenlarged Adrenals: No discrete nodules Kidneys: No solid mass or hydronephrosis. Vessels and lymph nodes: No abdominal aortic aneurysm. No lymph nodes enlarged by size criteria. Bowel and peritoneum: No bowel obstruction. Moderate colonic fecal loading. No drainable ascites. Body wall: Unremarkable Bones: No aggressive appearing osseous abnormality. IMPRESSION: Pancreatic head multiloculated cystic lesion measuring 2.1 x 1.5 cm, stable dating back to 2021. Continued annual follow-up may be obtained versus EUS/FNA if clinically indicated. No high risk features such as ductal dilation or enhancing soft tissue nodules. No other acute or significant finding in the abdomen Dictated by: Karlos Barakat M.D. on 08/19/2025 at 11:09 Approved by: Karlos Barakat M.D. on 08/19/2025 at 11:14
== END ==
LOC: MRI 07:12
PROVIDERS: PCP Internal Medicine; Referring Provider Internal Medicine; Visit Provider Internal Medicine
DX: K86.2 Cyst of pancreas (principal)
CPT/HCPCS: 74183; A9579